=== PATIENT | male | born 1935 | race American Indian/Alaskan Native ===

== ENCOUNTER 2017-03-03 12:41 | Outpatient (CLI) | payer MEDICARE, OTHER ==
[~2017-03-03 12:41] MED LIST: AMLO5TAB4 PO; ASP81TEC PO; AZTH250C PO; CLON0.1T PO; CYAN10007 PO; HYDR-3458 PO; HYDR12.56 PO; HYDR25TA4 PO; LISI20TA PO; LORA-404 PO; MOME13HF2 IH; MONT10TA21 PO; MTP25TSR PO; PHEN-640 PO; PRD20T PO; TADA5TAB2 PO; ZLP10T PO
[2017-03-03] MEDS ORDERED: CETI10TA20 PO (12:58)
[2017-03-03] MEDS ORDERED: LORA1TAB PO (12:58)
[2017-03-03] MEDS ORDERED: AMLO5TAB2 PO (12:58)
[2017-03-03] MEDS ORDERED: DULA0.75 SQ (12:58)
[2017-03-03] MEDS ORDERED: METF500T4 PO (12:58)
[2017-03-03] MEDS ORDERED: RT-ALBUINH IH (12:59)
== END 2017-03-03 14:37 | disposition home or self-care (01) ==
DX: Z01.812 Encounter for preprocedural laboratory examination (principal); Z11.2 Encounter for screening for other bacterial diseases; N40.0 Benign prostatic hyperplasia without lower urinary tract symptoms

== ENCOUNTER 2017-03-08 07:14 | Day surgery (SDC) | payer MEDICARE, OTHER ==
[~2017-03-08] VITALS: Ht 170.2 cm; Wt 78.0 kg
--- NOTE | 2017-03-08 07:07 | Progress Note-Pre Operative ---
Pre-Operative Progress Note H&P Reviewed The H&P was reviewed, patient examined and no changes noted. Date Seen by Provider: Mar 08, 2017 Time Seen by Provider: 07:07 Date H&P Reviewed: Mar 08, 2017 Time H&P Reviewed: 07:07 Pre-Operative Diagnosis: BPH WITH PROSTATISM KRUNAL VENEGAS MD Mar 08, 2017 7:07 am
[2017-03-08 07:13] VITALS: BP 145/73
[~2017-03-08 07:14] MED LIST changes: +AMLO5TAB2 PO; +CETI10TA20 PO; +DULA0.75 SQ; +LORA1TAB PO; +METF500T4 PO; +RT-ALBUINH IH
[2017-03-08] MEDS ORDERED: LEVOFLOXACIN 500 MG/100 ML IV 100 ML ONE (07:26)
[2017-03-08] MEDS ORDERED: LEVOFLOXACIN 500 MG/D5W 100 ML (PRE-MIX) IV ONE (07:45)
[2017-03-08] MEDS: LACTATED RINGERS 1,000 ML IV PRN ×2 (08:01→14:45)
[2017-03-08] MEDS ORDERED: MIDAZOLAM 2 MG/2 ML (VERSED) VIAL ONE (09:11)
[2017-03-08] MEDS ORDERED: proPOfol 200 MG/20 ML (DIPRIVAN) VIAL IV ONE (09:11)
[2017-03-08] MEDS ORDERED: LACTATED RINGERS 1,000 ML IV ONE (09:11)
[2017-03-08] MEDS ORDERED: LIDOCAINE PF 2% 5 ML (XYLOCAINE) VIAL ONE (09:11)
[2017-03-08] MEDS ORDERED: fentaNYL INJECTION 100 MCG/2 ML AMP ONE (09:12)
[2017-03-08] MEDS ORDERED: SEVOFLURANE (ULTANE) 15 ML INHAL SOLN ONE ×4 (09:14→10:07)
[2017-03-08] MEDS ORDERED: ONDANSETRON 4 MG/2 ML (SDV) Z0FRAN IV ONE (09:15)
[2017-03-08] MEDS ORDERED: FAMOTIDINE 20MG/2ML IV (PEPCID) IV ONE (09:15)
--- OUTSIDE RECORDS SUMMARY | 2017-03-08 10:15 | XMS REPORT | Continuity of Care Document ---
Author Author [facility] Organization [facility] Address Unknown Phone Unavailable Care Team Providers Care Surfboard Designer Name Role Phone TiaraMihai gorman PCP [phone] Source Comments Some departments are not documenting in the electronic medical record. If you do not see the information that you expected, contact Release of Information in the Health Information Management department at [phone] for further assistance in locating additional records.[facility] Active Allergies and Adverse Reactions Allergen Noted Date Severity Reactions Comments Soma 12/07/2010 ANXIETY, DIZZINESS Current Medications Prescription Sig. Disp. Refills Start End Date Status Date hydrochlorothiazide Take 12.5 mg by mouth Active (HYDRODIURIL) 25 mg PO daily. tablet cyanocobalamin 1,000 mcg Take 2,000 mcg by mouth Active PO tablet daily. ranitidine(+) (ZANTAC) Take 150 mg by mouth as Active 150 mg PO tablet Needed. aspirin 81 mg PO chew Take 1 Tab by mouth 90 Tab 12/20/19 Active tablet daily. Do not resume 11 until 12/25/2010. oxycodone/acetaminophen Take 1-2 Tabs by mouth 45 Tab 0 12/20/19 Active (PERCOCET) 5/325 mg PO every 4 hours as needed 11 tablet for Pain. lisinopril (PRINIVIL; Take 1 Tab by mouth 90 Tab 12/20/19 Active ZESTRIL) 20 mg PO tablet daily. Follow-up with 11 your PCP prior to resuming your medication. docusate (COLACE) 100 mg Take 1 Cap by mouth twice 180 Cap 0 12/20/19 Active PO capsule daily. 11 Active Problems Not on file Social History Tobacco Use Types Packs/Day Years Used Date Former Smoker Quit: 12/08/1979 Alcohol Use Drinks/Week oz/Week Comments No Last Filed Vital Signs Vital Sign Reading Time Taken Blood Pressure 126/71 12/19/2010 9:26 AM CDT Pulse 76 12/19/2010 9:26 AM CDT Temperature 36.7 C (98 F) 12/19/2010 9:26 AM CDT Respiratory Rate - - Height 1.702 m (5' 7") 12/07/2010 11:11 AM CDT Weight 75 kg (165 lb 5.5 oz) 12/07/2010 11:11 AM CDT Body Mass Index 25.89 12/07/2010 11:11 AM CDT Oxygen Saturation 95% 12/19/2010 9:26 AM CDT Plan of Care Health Maintenance Due Date Last Done Comments Physical (Comprehensive) 1940 Exam Pertussis Vaccine 1944 Tetanus Vaccine 1950 Shingles Vaccine 1993 Prevnar/Pneumovax (#1) 1998 Influenza Vaccine 05/13/2017 Results from Last 3 Months Not on file
--- OUTSIDE RECORDS SUMMARY | 2017-03-08 10:16 | XMS REPORT | Continuity of Care Document ---
Author Author [facility] Organization [facility] Address Unknown Phone Unavailable Allergies Active Description Code Type Severity Reaction Onset Reported/Identified Relationship to Patient Clinical Status Yes carisoprodol [id number] Drug Allergy Unknown N/A 03/03/2017 Medications Problems Date Dx Coded Attending Type Code Diagnosis Diagnosed By 10/01/2010 Ot 305.1 TOBACCO USE DISORDER 10/01/2010 Ot 401.9 HYPERTENSION NOS 10/01/2010 Ot 491.20 OBSTR CHRONIC BRONCHITIS, W/O EXACERBATI 10/01/2010 Ot 593.9 RENAL URETERAL DIS NOS 10/01/2010 Ot V58.69 OTH MED,LT,CURRENT USE 05/20/2011 Ot 272.4 HYPERLIPIDEMIA NEC/NOS 05/20/2011 Ot 285.9 ANEMIA NOS 05/20/2011 Ot 401.9 HYPERTENSION NOS 05/20/2011 Ot 593.9 RENAL URETERAL DIS NOS 05/20/2011 Ot 786.09 RESPIRATORY ABNORM NEC 05/20/2011 Ot 786.59 CHEST PAIN NEC 05/20/2011 Ot V10.52 HX OF KIDNEY MALIGNANCY 05/20/2011 Ot V45.73 ACQRD ABSENCE OF KIDNEY 05/20/2011 Ot V58.66 LONG-TERM (CURRENT) USE OF ASPIRIN 05/20/2011 Ot V58.69 OT MED,LT,CURRENT USE 02/14/2012 Ot 496 CHR AIRWAY OBSTRUCT NEC 10/24/2014 Ot 786.30 10/24/2014 Ot 593.9 10/24/2014 Ot 593.9 10/24/2014 Ot 593.9 10/24/2014 Ot 562.10 10/24/2014 Ot 785.6 10/24/2014 Ot 789.01 10/24/2014 Ot V10.52 10/24/2014 Ot V45.73 10/24/2014 Ot 189.0 10/24/2014 Ot 571.8 10/24/2014 Ot 786.2 10/24/2014 Ot 562.10 10/24/2014 Ot 573.8 10/24/2014 Ot 785.6 10/24/2014 Ot V10.52 10/24/2014 Ot V45.73 10/24/2014 Ot 786.05 10/24/2014 Ot 473.2 10/24/2014 Ot 780.4 10/24/2014 Ot 784.0 10/24/2014 Ot 518.89 10/24/2014 Ot 786.05 10/24/2014 Ot 189.0 10/24/2014 Ot 573.8 10/24/2014 Ot 600.00 10/24/2014 Ot V45.73 10/24/2014 Ot 189.0 10/24/2014 Ot 571.8 10/24/2014 Ot 189.0 10/24/2014 Ot 562.10 10/24/2014 Ot 571.8 10/24/2014 THEO KINNEY, KRUNAL A Ot 189.0 10/24/2014 TANIA KINNEY, MARTIN R Ot 780.60 10/24/2014 TANIA KINNEY, MARTIN R Ot 786.2 10/24/2014 SOHA KINNEY, FERNANDO A Ot 491.9 10/24/2014 SOHA KINNEY, FERNANDO A Ot 786.09 10/24/2014 SOHA KINNEY, FERNANDO A Ot 786.2 10/24/2014 FRED DO, CARLENE M Ot 490 10/24/2014 FRED DO, CARLENE M Ot 786.2 10/24/2014 FRED DO, CARLENE M Ot 793.19 10/24/2014 FRED DO, CARLENE M Ot 189.0 10/24/2014 FRED DO, CARLENE M Ot 491.9 10/24/2014 FRED DO, CARLENE M Ot 786.2 10/24/2014 FRED DO, CARLENE M Ot 786.30 10/24/2014 FRED DO, CARLENE M Ot 490 10/24/2014 FRED DO, CARLENE M Ot 786.2 10/25/2014 TANIA KINNEY, MARTIN R Ot 780.4 10/25/2014 TANIA KINNEY, MARTIN R Ot 784.0 12/10/2014 TANIA KINNEY, MARTIN R Ot 780.4 12/10/2014 TANIA KINNEY, MARTIN R Ot 784.0 03/08/2015 TANIA KINNEY, MARTIN R Ot 780.4 03/08/2015 TANIA KINNEY, MARTIN R Ot 784.0 07/07/2015 TANIA KINNEY, MARTIN R Ot R16.0 07/17/2015 THEO KINNEY, KRUNAL A Ot C64.2 07/29/2015 TANIA KINNEY, MARTIN R Ot R16.0 08/14/2015 THEO KINNEY, KRUNAL A Ot C64.2 08/14/2015 TANIA KINNEY, MARTIN R Ot R16.0 10/24/2015 Ot 786.30 10/24/2015 Ot 593.9 10/24/2015 Ot 593.9 10/24/2015 Ot 593.9 10/24/2015 Ot 562.10 10/24/2015 Ot 785.6 10/24/2015 Ot 789.01 10/24/2015 Ot V10.52 10/24/2015 Ot V45.73 10/24/2015 Ot 189.0 10/24/2015 Ot 571.8 10/24/2015 Ot 786.2 10/24/2015 Ot 562.10 10/24/2015 Ot 573.8 10/24/2015 Ot 785.6 10/24/2015 Ot V10.52 10/24/2015 Ot V45.73 10/24/2015 Ot 786.05 10/24/2015 Ot 473.2 10/24/2015 Ot 780.4 10/24/2015 Ot 784.0 10/24/2015 Ot 518.89 10/24/2015 Ot 786.05 10/24/2015 Ot 189.0 10/24/2015 Ot 573.8 10/24/2015 Ot 600.00 10/24/2015 Ot V45.73 10/24/2015 Ot 189.0 10/24/2015 Ot 571.8 10/24/2015 Ot 189.0 10/24/2015 Ot 562.10 10/24/2015 Ot 571.8 10/24/2015 THEO KINNEY, KRUNAL A Ot 189.0 10/24/2015 TANIA KINNEY, MARTIN R Ot 780.60 10/24/2015 TANIA KINNEY, MARTIN R Ot 786.2 10/24/2015 SOHA KINNEY, FERNANDO A Ot 491.9 10/24/2015 SOHA KINNEY, FERNANDO A Ot 786.09 10/24/2015 SOHA KINNEY, FERNANDO A Ot 786.2 10/24/2015 CARLENE IBARRA DO Ot 490 10/24/2015 CARLENE IBARRA DO Ot 786.2 10/24/2015 CARLENE BIARRA DO Ot 793.19 10/24/2015 FRED SMITH, CARLENE De Leon Ot 189.0 10/24/2015 FRED SMITH, CARLENE [place] Ot 491.9 10/24/2015 FRED SMITH, CARLENE [place] Ot 786.2 10/24/2015 FRED SMITH, CARLENE [place] Ot 786.30 10/24/2015 FRED SMITH, CARLENE [place] Ot 490 10/24/2015 FRED SMITH, CARLENE [place] Ot 786.2 10/24/2015 TANIA KINNEY, MARTIN R Ot 780.4 10/24/2015 TANIA KINNEY, MARTIN R Ot 784.0 10/24/2015 TANIA KINNEY, MARTIN R Ot 780.4 10/24/2015 TANIA KINNEY, MARTIN R Ot 784.0 10/24/2015 TANIA KINNEY, MARTIN R Ot V81.5 10/24/2015 THEO KINNEY, KRUNAL A Ot C64.2 10/24/2015 TANIA KINNEY, MARTIN R Ot R16.0 10/24/2015 JANET KINNEY, ANA Kuo Ot M43.16 SPONDYLOLISTHESIS, LUMBAR REGION 10/24/2015 JANET KINNEY, ANA Kuo Ot M54.16 RADICULOPATHY, LUMBAR REGION 11/03/2015 JENI HAN DO Ot F17.211 NICOTINE DEPENDENCE, CIGARETTES, IN SIL 11/03/2015 JENI HAN DO Ot K57.90 DVRTCLOS OF INTEST, PART UNSP, W/O PERF 11/03/2015 JENI HAN DO, Ot K80.20 CALCULUS OF GALLBLADDER W/O CHOLECYSTITI 11/03/2015 JENI HAN DO, Ot N40.1 ENLARGED PROSTATE WITH LOWER URINARY TRA 11/03/2015 JENI HAN DO, Ot Z90.5 ACQUIRED ABSENCE OF KIDNEY 11/21/2015 TANIA KINNEY, MARTIN R Ot M54.5 12/07/2015 DAVID LEHMAN DISSOLVER OPERATOR Ot K57.32 DVTRCLI OF LG INT W/O PERFORATION OR ABS 12/07/2015 DAVID LEHMAN DISSOLVER OPERATOR Ot K80.20 CALCULUS OF GALLBLADDER W/O CHOLECYSTITI 12/07/2015 DAVID LEHMAN DISSOLVER OPERATOR Ot N40.1 ENLARGED PROSTATE WITH LOWER URINARY TRA 12/07/2015 DAVID LHEMAN DISSOLVER OPERATOR Ot Z98.89 OTHER SPECIFIED POSTPROCEDURAL STATES 12/09/2015 DAVID LEHMAN DISSOLVER OPERATOR Ot K57.32 12/09/2015 DAVID LEHMAN DISSOLVER OPERATOR Ot K80.20 12/09/2015 DAVID LEHMAN DISSOLVER OPERATOR Ot N40.1 12/09/2015 DAVID LEHMAN DISSOLVER OPERATOR Ot Z98.89 12/17/2015 TANIA KINNEY, MARTIN R Ot M54.5 06/10/2016 Ot 593.9 RENAL URETERAL DIS NOS 06/10/2016 Ot 562.10 DIVERTICULOSIS COLON (W/O MENT OF HEMORR 06/10/2016 Ot 785.6 ENLARGEMENT LYMPH NODES 06/10/2016 Ot 789.01 ABDOMINAL PAIN, RIGHT UPPER QUADRANT 06/10/2016 Ot V10.52 HX OF KIDNEY MALIGNANCY 06/10/2016 Ot V45.73 ACQRD ABSENCE OF KIDNEY 06/10/2016 Ot 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 06/10/2016 Ot 571.8 CHRONIC LIVER DIS NEC 06/10/2016 Ot 786.2 COUGH 06/10/2016 Ot 562.10 DIVERTICULOSIS COLON (W/O MENT OF HEMORR 06/10/2016 Ot 573.8 LIVER DISORDERS NEC 06/10/2016 Ot 785.6 ENLARGEMENT LYMPH NODES 06/10/2016 Ot V10.52 HX OF KIDNEY MALIGNANCY 06/10/2016 Ot V45.73 ACQRD ABSENCE OF KIDNEY 06/10/2016 Ot 786.05 SHORTNESS OF BREATH 06/10/2016 Ot 473.2 CHR ETHMOIDAL SINUSITIS 06/10/2016 Ot 780.4 DIZZINESS AND GIDDINESS 06/10/2016 Ot 784.0 HEADACHE 06/10/2016 Ot 518.89 OTHER DISEASES OF LUNG, NEC 06/10/2016 Ot 786.05 SHORTNESS OF BREATH 06/10/2016 Ot 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 06/10/2016 Ot 573.8 LIVER DISORDERS NEC 06/10/2016 Ot 600.00 HYPERTROPHY (BENIGN) OF PROSTATE W/O URI 06/10/2016 Ot V45.73 ACQRD ABSENCE OF KIDNEY 06/10/2016 Ot 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 06/10/2016 Ot 571.8 CHRONIC LIVER DIS NEC 06/10/2016 Ot 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 06/10/2016 Ot 562.10 DIVERTICULOSIS COLON (W/O MENT OF HEMORR 06/10/2016 Ot 571.8 CHRONIC LIVER DIS NEC 06/10/2016 THEO KINNEY, KRUNAL A Ot 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 06/10/2016 TANIA KINNEY, MARTIN R Ot 780.60 FEVER, UNSPECIFIED 06/10/2016 TANIA KINNEY, MARTIN R Ot 786.2 COUGH 06/10/2016 SOHA KINNEY, FERNANDO A Ot 491.9 CHRONIC BRONCHITIS NOS 06/10/2016 SOHA KINNEY, FERNANDO A Ot 786.09 RESPIRATORY ABNORM NEC 06/10/2016 SOHA KINNEY, FERNANDO A Ot 786.2 COUGH 06/10/2016 CARLENE IBARRA DO Ot 490 BRONCHITIS NOS 06/10/2016 CARLNEE IBARRA DO Ot 786.2 COUGH 06/10/2016 CARLENE IBARRA DO Ot 793.19 OTHER NONSPECIFIC ABNORMAL FINDING OF DEANNA 06/10/2016 CARLENE IBARRA DO Ot 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 06/10/2016 CARLENE IBARRA DO Ot 491.9 CHRONIC BRONCHITIS NOS 06/10/2016 CARLENE IBARRA DO Ot 786.2 COUGH 06/10/2016 CARLENE IBARRA DO Ot 786.30 HEMOPTYSIS, UNSPECIFIED 06/10/2016 CARLENE IBARRA DO Ot 490 BRONCHITIS NOS 06/10/2016 CARLENE IBARRA DO Ot 786.2 COUGH 06/10/2016 TANIA KINNEY, MARTIN R Ot 780.4 DIZZINESS AND GIDDINESS 06/10/2016 TANIA KINNEY, MARTIN R Ot 784.0 HEADACHE 06/10/2016 TANIA KINNEY, MARTIN R Ot 780.4 DIZZINESS AND GIDDINESS 06/10/2016 TANIA KINNEY, MARTIN R Ot 784.0 HEADACHE 06/10/2016 TANIA KINNEY, MARTIN R Ot V81.5 SCREEN FOR NEPHROPATHY 06/10/2016 THEO KINNEY, KRUNAL A Ot C64.2 MALIGNANT NEOPLASM OF LEFT KIDNEY, EXCEP 06/10/2016 TANIA KINNEY, MARTIN R Ot R16.0 HEPATOMEGALY, NOT ELSEWHERE CLASSIFIED 06/10/2016 TANIA KINNEY, MARTIN R Ot M54.5 LOW BACK PAIN 08/09/2016 Ot 593.9 RENAL URETERAL DIS NOS 08/09/2016 Ot 562.10 DIVERTICULOSIS COLON (W/O MENT OF HEMORR 08/09/2016 Ot 785.6 ENLARGEMENT LYMPH NODES 08/09/2016 Ot 789.01 ABDOMINAL PAIN, RIGHT UPPER QUADRANT 08/09/2016 Ot V10.52 HX OF KIDNEY MALIGNANCY 08/09/2016 Ot V45.73 ACQRD ABSENCE OF KIDNEY 08/09/2016 Ot 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 08/09/2016 Ot 571.8 CHRONIC LIVER DIS NEC 08/09/2016 Ot 786.2 COUGH 08/09/2016 Ot 562.10 DIVERTICULOSIS COLON (W/O MENT OF HEMORR 08/09/2016 Ot 573.8 LIVER DISORDERS NEC 08/09/2016 Ot 785.6 ENLARGEMENT LYMPH NODES 08/09/2016 Ot V10.52 HX OF KIDNEY MALIGNANCY 08/09/2016 Ot V45.73 ACQRD ABSENCE OF KIDNEY 08/09/2016 Ot 786.05 SHORTNESS OF BREATH 08/09/2016 Ot 473.2 CHR ETHMOIDAL SINUSITIS 08/09/2016 Ot 780.4 DIZZINESS AND GIDDINESS 08/09/2016 Ot 784.0 HEADACHE 08/09/2016 Ot 518.89 OTHER DISEASES OF LUNG, NEC 08/09/2016 Ot 786.05 SHORTNESS OF BREATH 08/09/2016 Ot 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 08/09/2016 Ot 573.8 LIVER DISORDERS NEC 08/09/2016 Ot 600.00 HYPERTROPHY (BENIGN) OF PROSTATE W/O URI 08/09/2016 Ot V45.73 ACQRD ABSENCE OF KIDNEY 08/09/2016 Ot 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 08/09/2016 Ot 571.8 CHRONIC LIVER DIS NEC 08/09/2016 Ot 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 08/09/2016 Ot 562.10 DIVERTICULOSIS COLON (W/O MENT OF HEMORR 08/09/2016 Ot 571.8 CHRONIC LIVER DIS NEC 08/09/2016 KRUNAL VENEGAS MD Ot 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 08/09/2016 TANIA KINNEY, MARTIN R Ot 780.60 FEVER, UNSPECIFIED 08/09/2016 TANIA KINNEY, MARTIN R Ot 786.2 COUGH 08/09/2016 SOHA KINNEY, FERNANDO A Ot 491.9 CHRONIC BRONCHITIS NOS 08/09/2016 SOHA KINNEY, FERNANDO A Ot 786.09 RESPIRATORY ABNORM NEC 08/09/2016 SOHA KINNEY, FERNANDO A Ot 786.2 COUGH 08/09/2016 CARLENE IBARRA DO M Ot 490 BRONCHITIS NOS 08/09/2016 SPENCER IBARRA DOSON M Ot 786.2 COUGH 08/09/2016 SPENCER IBARRA DOSON M Ot 793.19 OTHER NONSPECIFIC ABNORMAL FINDING OF DEANNA 08/09/2016 CARLENE IBARRA DO M Ot 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 08/09/2016 CARLENE IBARRA DO M Ot 491.9 CHRONIC BRONCHITIS NOS 08/09/2016 SPENCER IBARRA DOSON M Ot 786.2 COUGH 08/09/2016 SPENCER IBARRA DOSON M Ot 786.30 HEMOPTYSIS, UNSPECIFIED 08/09/2016 CARLENE IBARRA DO M Ot 490 BRONCHITIS NOS 08/09/2016 SPENCER IBARRA DOSON M Ot 786.2 COUGH 08/09/2016 MARTIN MARIN MD R Ot 780.4 DIZZINESS AND GIDDINESS 08/09/2016 MARTIN MARIN MD R Ot 784.0 HEADACHE 08/09/2016 MARTIN MARIN MD R Ot 780.4 DIZZINESS AND GIDDINESS 08/09/2016 TANIA KINNEY, MARTIN R Ot 784.0 HEADACHE 08/09/2016 MARTIN MARIN MD R Ot V81.5 SCREEN FOR NEPHROPATHY 08/09/2016 KRUNAL VENEGAS MD Ot C64.2 MALIGNANT NEOPLASM OF LEFT KIDNEY, EXCEP 08/09/2016 MARTIN MARIN MD Ot R16.0 HEPATOMEGALY, NOT ELSEWHERE CLASSIFIED 08/09/2016 MARTIN MARIN MD Ot M54.5 LOW BACK PAIN 08/10/2016 KRUNAL VENEGAS MD Ot C64.9 MALIGNANT NEOPLASM OF UNSP KIDNEY, EXCEP 08/10/2016 THEO KINNEY, KRUNAL Harden Ot Z08 ENCNTR FOR FOLLOW-UP EXAM AFTER TRTMT FO 08/10/2016 THEO KINNEY, KRUNAL Harden Ot Z85.528 PERSONAL HISTORY OF OTHER MALIGNANT NEOP 08/31/2016 KRUNAL VENEGAS MD Ot Z08 ENCNTR FOR FOLLOW-UP EXAM AFTER TRTMT FO 08/31/2016 THEO KINNEY, KRUNAL Harden Ot Z85.528 PERSONAL HISTORY OF OTHER MALIGNANT NEOP 09/22/2016 THEO KINNEY, KRUNAL Harden Ot Z08 ENCNTR FOR FOLLOW-UP EXAM AFTER TRTMT FO 09/22/2016 KRUNAL VENEGAS MD Ot Z85.528 PERSONAL HISTORY OF OTHER MALIGNANT NEOP 11/29/2016 Ot 786.2 COUGH 11/29/2016 Ot 562.10 DIVERTICULOSIS COLON (W/O MENT OF HEMORR 11/29/2016 Ot 573.8 LIVER DISORDERS NEC 11/29/2016 Ot 785.6 ENLARGEMENT LYMPH NODES 11/29/2016 Ot V10.52 HX OF KIDNEY MALIGNANCY 11/29/2016 Ot V45.73 ACQRD ABSENCE OF KIDNEY 11/29/2016 Ot 786.05 SHORTNESS OF BREATH 11/29/2016 Ot 473.2 CHR ETHMOIDAL SINUSITIS 11/29/2016 Ot 780.4 DIZZINESS AND GIDDINESS 11/29/2016 Ot 784.0 HEADACHE 11/29/2016 Ot 518.89 OTHER DISEASES OF LUNG, NEC 11/29/2016 Ot 786.05 SHORTNESS OF BREATH 11/29/2016 Ot 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 11/29/2016 Ot 573.8 LIVER DISORDERS NEC 11/29/2016 Ot 600.00 HYPERTROPHY (BENIGN) OF PROSTATE W/O URI 11/29/2016 Ot V45.73 ACQRD ABSENCE OF KIDNEY 11/29/2016 Ot 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 11/29/2016 Ot 571.8 CHRONIC LIVER DIS NEC 11/29/2016 Ot 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 11/29/2016 Ot 562.10 DIVERTICULOSIS COLON (W/O MENT OF HEMORR 11/29/2016 Ot 571.8 CHRONIC LIVER DIS NEC 11/29/2016 KRUNAL VENEGAS MD Ot 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 11/29/2016 TANIA KINNEY, MARTIN R Ot 780.60 FEVER, UNSPECIFIED 11/29/2016 TANIA KINNEY, MARTIN R Ot 786.2 COUGH 11/29/2016 SOHA KINNEY, FERNANDO A Ot 491.9 CHRONIC BRONCHITIS NOS 11/29/2016 SOHA KINNEY, FERNANDO A Ot 786.09 RESPIRATORY ABNORM NEC 11/29/2016 SOHA KINNEY, FERNANDO A Ot 786.2 COUGH 11/29/2016 FRED DO, CARLENE M Ot 490 BRONCHITIS NOS 11/29/2016 FRED DO, CARLENE M Ot 786.2 COUGH 11/29/2016 FRED DO, CARLENE M Ot 793.19 OTHER NONSPECIFIC ABNORMAL FINDING OF DEANNA 11/29/2016 SPENCER IBARRA DOSON M Ot 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 11/29/2016 FRED SMITH CARLENE M Ot 491.9 CHRONIC BRONCHITIS NOS 11/29/2016 FRED SMITH CARLENE M Ot 786.2 COUGH 11/29/2016 FRED SMITH CARLENE M Ot 786.30 HEMOPTYSIS, UNSPECIFIED 11/29/2016 FRED DO, CARLENE M Ot 490 BRONCHITIS NOS 11/29/2016 FRED DO, ACRLENE M Ot 786.2 COUGH 11/29/2016 TANIA KINNEY, MARTIN R Ot 780.4 DIZZINESS AND GIDDINESS 11/29/2016 MARTIN MARIN MD R Ot 784.0 HEADACHE 11/29/2016 MARTIN MARIN MD R Ot 780.4 DIZZINESS AND GIDDINESS 11/29/2016 TANIA KINNEY MARTIN R Ot 784.0 HEADACHE 11/29/2016 TANIA KINNEY, MARTIN R Ot V81.5 SCREEN FOR NEPHROPATHY 11/29/2016 KRUNAL VENEGAS MD Ot C64.2 MALIGNANT NEOPLASM OF LEFT KIDNEY, EXCEP 11/29/2016 MARTIN MARIN MD R Ot R16.0 HEPATOMEGALY, NOT ELSEWHERE CLASSIFIED 11/29/2016 MARTIN MARIN MD R Ot M54.5 LOW BACK PAIN 11/29/2016 KRUNAL VENEGAS MD Ot Z08 ENCNTR FOR FOLLOW-UP EXAM AFTER TRTMT FO 11/29/2016 KRUNAL VENEGAS MD, Ot Z85.528 PERSONAL HISTORY OF OTHER MALIGNANT NEOP Procedures Results Test Result Range Complete blood count (CBC) with automated white blood cell (WBC) differential - 03/03/17 13:10 Blood leukocytes automated count (number/volume) 6.8 10*3/ uL 4.3-11.0 Blood erythrocytes automated count (number/volume) 4.26 10*6 /uL 4.35-5.85 Venous blood hemoglobin measurement (mass/volume) 13.0 g/dL 13.3-17.7 Blood hematocrit (volume fraction) 40 % 40-54 Automated erythrocyte mean corpuscular volume 93 [foz_us] 80-99 Automated erythrocyte mean corpuscular hemoglobin (mass per erythrocyte) 31 pg 25-34 Automated erythrocyte mean corpuscular hemoglobin concentration measurement ( mass/volume) 33 g/dL 32-36 Automated erythrocyte distribution width ratio 12.8 % 10.0-14.5 Automated blood platelet count (count/volume) 168 10*3/uL 130-400 Automated blood platelet mean volume measurement 10.7 [foz_ us] 7.4-10.4 Automated blood neutrophils/100 leukocytes 55 % 42-75 Automated blood lymphocytes/100 leukocytes 27 % 12-44 Blood monocytes/100 leukocytes 8 % 0-12 Automated blood eosinophils/100 leukocytes 10 % 0-10 Automated blood basophils/100 leukocytes 0 % 0-10 Blood neutrophils automated count (number/volume) 3.7 10*3 1.8-7.8 Blood lymphocytes automated count (number/volume) 1.8 10*3 1.0-4.0 Blood monocytes automated count (number/volume) 0.6 10*3 0.0-1.0 Automated eosinophil count 0.7 10*3/uL 0.0-0.3 Automated blood basophil count (count/volume) 0.0 10*3/uL 0.0-0.1 Whole blood basic metabolic panel - 03/03/17 13:10 Serum or plasma sodium measurement (moles/volume) 141 mmol/ L 135-145 Serum or plasma potassium measurement (moles/volume) 3.6 mmol/L 3.6-5.0 Serum or plasma chloride measurement (moles/volume) 105 mmol /L 98-107 Carbon dioxide 28 mmol/L 21-32 Serum or plasma anion gap determination (moles/volume) 8 mmol/L 5-14 Serum or plasma urea nitrogen measurement (mass/volume) 23 mg/dL 7-18 Serum or plasma creatinine measurement (mass/volume) 1.43 mg /dL 0.60-1.30 Serum or plasma urea nitrogen/creatinine mass ratio 16 0-20 Serum or plasma creatinine measurement with calculation of estimated glomerular filtration rate 47 NRG Serum or plasma glucose measurement (mass/volume) 96 mg/dL 70-105 Serum or plasma calcium measurement (mass/volume) 9.2 mg/dL 8.5-10.1 Methicillin resistant Staphylococcus aureus (MRSA) screening culture - 13:10 Methicillin resistant Staphylococcus aureus (MRSA) screening culture NEG NRG Encounters ACCT No. Visit Date/Time Discharge Status Pt. Type Provider Facility Loc./Unit Complaint [id number] 03/03/2017 12:41:00 2016 14:37:00 DIS Outpatient KRUNAL VENEGAS MD [facility] PREOP ENLARGED PROSTATE [id number] 12/07/2015 13:25:00 2015 15:56:00 DIS Emergency DAVID LEHMAN APRN [facility] ER DIFFICULTY URINATING [id number] 11/03/2015 17:54:00 2015 21:15:00 DIS Emergency JENI HAN DO [facility] ER NOT URINATING [id number] 10/24/2015 11:36:00 2015 14:06:00 DIS Emergency ANA GONZALES MD [facility] ER BACK PAIN [id number] 07/03/2015 12:30:00 2014 23:59:59 CLS Outpatient MARTIN MARIN MD [facility] RAD LIVER MASS [id number] 06/27/2015 08:55:00 2014 23:59:59 CLS Outpatient KRUNAL VENEGAS MD [facility] RAD LEFT RENAL CA [id number] 10/24/2014 13:51:00 2014 23:59:59 CLS Outpatient MARTIN MARIN MD [facility] RAD HEADACHE,DIZZINESS,HEAD PRESSURE [id number] 10/24/2014 11:27:00 2014 23:59:59 CLS Outpatient MARTIN MARIN MD [facility] LAB PED PRESSURE, HEADACHE,DIZZINESS [id number] 01/08/2014 11:29:00 2013 23:59:59 CLS Outpatient CARLENE IBARRA DO [facility] RAD BRONCHITIS,COUGH, FOLLOW UP [id number] 12/27/2013 13:46:00 2013 23:59:59 CLS Outpatient CARLENE IBARRA DO [facility] RT BRONCHITIS, COUGH [id number] 11/22/2013 10:49:00 2013 23:59:59 CLS Outpatient CARLENE IBARRA DO [facility] RAD BRONCHITIS, COUGH [id number] 11/15/2013 16:44:00 2013 23:59:59 CLS Outpatient FERNANDO HOYOS MD [facility] LAB COUGH [id number] 11/12/2013 11:47:00 2013 23:59:59 CLS Outpatient MARTIN MARIN MD [facility] RAD COUGH,FEVER [id number] 06/19/2013 10:21:00 2012 23:59:59 CLS Outpatient KRUNAL VENEGAS MD [facility] RAD LEFT RENAL CA [id number] 03/08/2017 08:00:00 PEN Preadmit KRUNAL VENEGAS MD [facility] SDC ENLARGED PROSTATE [id number] 08/09/2016 14:01:00 ACT Outpatient KRUNAL VENEGAS MD [facility] RAD HISTORY OF LT RENAL CELL CARCINOMA [id number] 10/27/2015 12:11:00 ACT Outpatient MARTIN MARIN MD [facility] RAD CHRONIC LUMBAR SPINE PAIN [id number] 12/22/2012 11:50:00 Document Registration [id number] 06/09/2012 10:28:00 Document Registration [id number] 12/14/2011 10:00:00 Document Registration [id number] 12/13/2011 10:00:00 Document Registration [id number] 10/29/2011 09:53:00 Document Registration [id number] 08/12/2011 09:33:00 Document Registration [id number] 07/14/2011 15:49:00 Document Registration [id number] 07/05/2011 08:52:00 Document Registration [id number] 06/29/2011 09:44:00 Document Registration [id number] 06/07/2011 13:41:00 Document Registration [id number] 05/19/2011 14:45:00 Document Registration [id number] 03/12/2011 10:53:00 Document Registration [id number] 03/04/2011 13:52:00 Document Registration [id number] 10/09/2010 10:53:00 Document Registration [id number] 10/08/2010 08:08:00 Document Registration [id number] 09/30/2010 09:30:00 Document Registration [id number] 09/28/2010 11:24:00 Document Registration
--- NOTE | 2017-03-08 10:19 | Progress Note-Post Operative ---
Post-Operative Progess Note Surgeon (s)/Guard Driver (s) Surgeon KRUNAL VENEGAS MD Guard Driver: N/A Pre-Operative Diagnosis BPH WITH PROSTATISM Post-Operative Diagnosis SAME Procedure & Operative Findings Date of Procedure 03/08/17 Procedure Performed/Findings UROLIFT IMPLANT FOR BPH Anesthesia Type GENERAL Estimated Blood Loss Estimated blood loss (mL): N/A Specimens/Packing Specimens Removed N/A KRUNAL VENEGAS MD Mar 08, 2017 10:19 am
[2017-03-08] MEDS ORDERED: ONDANSETRON 4 MG/2 ML (SDV) Z0FRAN IVP PRN (10:30)
[2017-03-08] MEDS: morphine INJ 10 MG/ML 1ML (SYR OR VIAL) IVP PRN ×2 (10:43→10:50)
[2017-03-08 11:20] VITALS: BP 153/77
[2017-03-08] MEDS ORDERED: HYOSCYAMINE 0.375 MG (LEVBID) TAB PO PRN (11:45)
[2017-03-08] MEDS ORDERED: PHENAZOPYRIDINE 100 MG (PYRIDIUM) TABLET PO PRN (11:45)
--- NOTE | 2017-03-08 11:45 | Discharge Inst-Urology ---
Discharge Inst-Urology Discharge Medications New, Converted, or Re-newed RX: RX on Chart Patient Instructions/Follow Up Plan Discharge with meza an leg bag day time and large bag night time with instructions Office tomorrow 9am to DC derrick See me in 2 weeks Increase oral fluids for 48 hours and then as needed. Diet and Activity as tolerated. If questions or concerns contact your physician Or seek help at emergency department. KRUNAL VENEGAS MD Mar 08, 2017 11:45 am
[2017-03-08] MEDS: HYDROcodone/APAP 5 MG/325 MG (LORTAB) TAB PO PRN ×2 (11:57→14:10)
[2017-03-08 12:00] VITALS: BP 169/80
[2017-03-08 12:30] VITALS: BP 169/75
[2017-03-08] MEDS ORDERED: PROMETHAZINE INJ 25 MG/ML (PHENERGAN) AMP IVP ONE (14:30)
[2017-03-08 15:00] VITALS: BP 159/76
[2017-03-08] MEDS ORDERED: PHEN-640 PO (15:27)
[2017-03-08] MEDS ORDERED: HYOS0.3732 PO (15:27)
[2017-03-08] MEDS ORDERED: CIPR-225 PO (15:27)
[2017-03-08] MEDS ORDERED: HYDR-3874 PO (15:27)
[2017-03-08 16:30] VITALS: BP 159/76
--- NOTE | 2017-03-11 14:59 | OPERATIVE REPORT ---
PROCEDURE PHYSICIAN: KRUNAL VENEGAS DATE OF PROCEDURE: 03/08/2017 PREOPERATIVE DIAGNOSIS: BPH with prostatism. POSTOPERATIVE DIAGNOSIS: BPH with prostatism. OPERATION PERFORMED: UroLift implants. SURGEON: Dr. Venegas. ANESTHESIA: General. COMPLICATIONS: None. PROCEDURE: Under satisfactory general anesthesia, the patient in lithotomy position, the genitalia were prepped and draped in the usual sterile fashion. A special UroLift cystoscope was introduced and again, assessment off the prostate revealed enlargement of the lateral lobe meeting in the midline. No median lobe and no intravesical protrusion. I went ahead and inserted 4 UroLift implants, 3 on each side, proximal mid and distal, staying away from the bladder neck and the VERU. There was good opening of the channel. There was some oozing from the prostate which is known to be enlarged and vascular so I elected to leave a catheter. I inserted a 20-Cuban, three-way 30 mL balloon catheter, connected to CBI, the return of which was pretty clear. Estimated blood loss negligible, none of which was replaced. The patient tolerated the procedure and anesthesia well and was sent to recovery room in stable condition. PLAN: We will see how he does in the recovery room to decide upon discharge or admission and catheter fate. Job ID: [id number] Dictated Date: 03/11/2017 11:05:30 Refining Still Operator Date: 03/11/2017 14:54:17 / hany
== END 2017-03-08 16:30 | disposition home or self-care (01) ==
LOC: SDC 07:14
PROVIDERS: ATTEND Urology
DX: N40.0 Benign prostatic hyperplasia without lower urinary tract symptoms (principal); E11.9 Type 2 diabetes mellitus without complications; E78.00 Pure hypercholesterolemia, unspecified; I10 Essential (primary) hypertension; Z79.84 Long term (current) use of oral hypoglycemic drugs; Z79.899 Other long term (current) drug therapy
CPT/HCPCS: 82962

== ENCOUNTER → 2017-06-13 | Outpatient (CLI) | payer MEDICARE, OTHER ==
[~2017-06-13] MED LIST changes: +CIPR-225 PO; +HYDR-3874 PO; +HYOS0.3732 PO
--- NOTE | 2017-06-13 16:58 | Diagnostic Imaging Report ---
Three views of the right knee. INDICATION: Pain and swelling in the right knee. FINDINGS: There is no fracture, dislocation, or radiopaque foreign body. There is spur formation along the upper aspect of the patella at the insertion site of the quadriceps tendon. There are small spurs also seen along the tibial spine and the patella with minimal osteophytes also seen in the medial compartment. No significant joint space narrowing is identified. No suprapatellar effusion of significance seen. IMPRESSION: Mild degenerative changes. Dictated by: Dictated on workstation # [id number]
== END ==
LOC: RAD 14:06
PROVIDERS: ATTEND Family Medicine
DX: R22.41 Localized swelling, mass and lump, right lower limb (principal); M79.604 Pain in right leg
CPT/HCPCS: 73562

== ENCOUNTER 2017-07-09 10:35 | Emergency (ER) | payer MEDICARE, OTHER ==
[~2017-07-09] VITALS: Ht 170.2 cm; Wt 78.0 kg
--- OUTSIDE RECORDS SUMMARY | 2017-07-09 10:40 | XMS REPORT | Clinical Summary ---
Author Author [facility] Organization [facility] Address Unknown Phone Unavailable Care Team Providers Care Fire Behavior Analyst Name Role Phone PCP Unavailable Source Comments Some departments are not documenting in the electronic medical record. If you do not see the information that you expected, contact Release of Information in the Health Information Management department at [phone] for further assistance in locating additional records.[facility] Allergies Active Allergy Reactions Severity Noted Date Comments Carisoprodol ANXIETY, DIZZINESS 12/07/2010 Current Medications Prescription Sig. Disp. Refills Start [...] daily. 11 Active Problems Not on file Family History Medical History Relation Name Comments Arthritis-osteo Brother Diabetes Brother Heart Attack Brother Hypertension Brother Heart Failure Sister High Cholesterol Sister Hypertension Sister Relation Name Status Comments Brother Sister Social History Tobacco Use Types Packs/Day Years Used Date Former Smoker Quit: 12/08/1979 Alcohol Use Drinks/Week oz/Week Comments No Sex Assigned at Date Recorded Not on file Last Filed Vital Signs Vital Sign Reading Time Taken Blood Pressure 126/71 12/19/2010 9:26 AM CDT Pulse 76 12/19/2010 9:26 AM CDT Temperature 36.7 C (98 F) 12/19/2010 9:26 AM CDT Respiratory Rate - - Oxygen Saturation 95% 12/19/2010 9:26 AM CDT Inhaled Oxygen - - Concentration Weight 75 kg (165 lb 5.5 oz) 12/07/2010 11:11 AM CDT Height 170.2 cm (5' 7") 12/07/2010 11:11 AM CDT Body Mass Index 25.9 12/07/2010 11:11 AM CDT Plan of Treatment Health Maintenance Due Date Last Done Comments PHYSICAL (COMPREHENSIVE) 1940 EXAM PERTUSSIS VACCINE 1944 TETANUS VACCINE 1950 SHINGLES VACCINE 1993 PREVNAR/PNEUMOVAX (#1) 1998 INFLUENZA VACCINE 04/12/2017 Results Not on filefrom Last 3 Months
--- NOTE | 2017-07-09 11:07 | ED General ---
General Chief Complaint: Dizziness/Syncope Stated Complaint: DIZZINESS, TROUBLE WALKING Nursing Triage Note: PT REPORTS DIZZINESS AND UNSTEADY GAIT SINCE YESTERDAY. HE DENIES ANY OTHER S/S Nursing Sepsis Screen: No Definite Risk Source of Information: Patient Exam Limitations: No Limitations History of Present Illness Time Seen by Provider: 11:06 Initial Comments To ER coming by his with reports of feeling off balance only when walking that began the morning of 07/11. He denies any dizzy or spinning sensation. He does not feel "off balance" while sitting still, only upon walking. He denies any nausea or vomiting. Denies any recent illness. No recent neck trauma or spinal manipulation. Timing/Duration: 24 Hours Severity: Moderate Associated Systoms: No Headaches, No Loss of Appetite, No Malaise, No Nausea/ Vomiting Allergies and Home Medications Allergies Coded Allergies: carisoprodol (Verified Allergy, Unknown, 03/03/17) Home Medications Albuterol Sulfate 1 Puff Puff, 2 PUFF IH BID, (Reported) 1 PUFF = 90 MCG Amlodipine Besylate 5 Mg Tablet, 5 MG PO DAILY, (Reported) Cetirizine HCl 10 Mg Tablet, 10 MG PO DAILY, (Reported) Ciprofloxacin HCl 500 Mg Tablet, 500 MG PO BID, #14 Prescribed by: KIRK RODRIGUEZ on 03/08/17 152 Clonidine HCl 0.1 Mg Tablet, 0.1 MG PO DAILY, (Reported) Dulaglutide 0.75 Mg/0.5 Ml Pen.injctr, 0.75 MG SQ WEEKLY, (Reported) Hydrochlorothiazide 25 Mg Tablet, 25 MG PO DAILY, (Reported) Hydrocodone/Acetaminophen 1 Each Tablet, 1-2 TAB PO Q4H PRN for PAIN, #30 Prescribed by: KIRK RODRIGUEZ on 03/08/17 1527 Hyoscyamine Sulfate 0.375 Mg Tab.er.12h, 0.375 MG PO Q12H, #20 Prescribed by: KIRK RODRIGUEZ on 03/08/17 1527 Lorazepam 1 Mg Tablet, 1 MG PO TID PRN for TREMORS, (Reported) Metformin HCl 500 Mg Tablet, 500 MG PO BID, (Reported) Mometasone/Formoterol 13 Gm Hfa.aer.ad, 1 PUFF IH DAILY, (Reported) Montelukast Sodium 10 Mg Tablet, 10 MG PO DAILY, (Reported) Phenazopyridine HCl 200 Mg Tablet, 1 TAB PO TID, #20 Prescribed by: KIRK RODRIGUEZ on 03/08/17 1527 Tadalafil 5 Mg Tablet, 5 MG PO DAILY, (Reported) Zolpidem Tartrate 10 Mg Tab, 10 MG PO HS, (Reported) Constitutional: see HPI EENTM: see HPI Respiratory: no symptoms reported Cardiovascular: no symptoms reported Genitourinary: no symptoms reported Musculoskeletal: no symptoms reported Skin: no symptoms reported Psychiatric/Neurological: No Symptoms Reported Hematologic/Lymphatic: No Symptoms Reported Past Fjofajz-Pdklqk-Vmenze Hx Patient Social History Alcohol Use: Denies Use Recreational Drug Use: No Smoking Status: Former Smoker Type Used: Cigarettes Former Smoker, Quit: Mar 03, 1980 2nd Hand Smoke Exposure: No Recent Foreign Travel: No Contact w/Someone Who Travel: No Recent Infectious Disease Expo: No Recent Hopitalizations: No Physical Abuse: No Sexual Abuse: No Immunizations Up To Date Date of Pneumonia Vaccine: Jun 23, 2015 Date of Influenza Vaccine: Jun 21, 2016 Seasonal Allergies Seasonal Allergies: Yes Surgeries History of Surgeries: Yes (LAMINECTOMY) Surgeries: Bladder Surgery, Nephrectomy Respiratory History of Respiratory Disorde: Yes Respiratory Disorders: Chronic Bronchitis Cardiovascular History of Cardiac Disorders: Yes Cardiac Disorders: Hypertension Neurological History of Neurological Disord: Yes (TREMORS) Reproductive System Hx Reproductive Disorders: No Sexually Transmitted Disease: No HIV/AIDS: No Genitourinary Genitourinary Disorders: Prostate Problems Gastrointestinal History of Gastrointestinal Di: Yes Gastrointestinal Disorders: Gastroesophageal Reflux Musculoskeletal History of Musculoskeletal Dis: Yes (LEG/FOOT PAIN) Musculoskeletal Disorders: Arthritis Endocrine History of Endocrine Disorders: Yes HEENT 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 Cancer History of Cancer: Yes Cancer: Kidney Psychosocial History of Psychiatric Problem: No Suicide Risk Score: 0 Integumentary History of Skin or Integumenta: No Blood Transfusions History of Blood Disorders: No Adverse Reaction to a Blood Tr: No (N/A) Family Medical History Significant Family History: No Pertinent Family Hx Physical Exam Vital Signs Vital Sign - Last 12Hours 07/09/17 10:45 Temp 98.2 Pulse 67 Resp 16 B/P (MAP) 131/60 Pulse Ox 99 O2 Delivery Room Air Capillary Refill : Less Than 3 Seconds General Appearance: No Apparent Distress, WD/WN Eyes: Bilateral Eye Normal Inspection, Bilateral Eye PERRL, Bilateral Eye EOMI HEENT: PERRL/EOMI, TMs Normal, Other (very mild nystagmus horizontal with fast phase to the right. 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 Speech is clear and appropriate. ) Skin: Normal Color, Warm/Dry Progress/Results/Core Measures Results/Orders Lab Results Laboratory Tests Test 07/09/17 11:20 07/09/17 11:52 Range/Units White Blood Count 6.7 4.3-11.0 10^3/uL Red Blood Count 4.36 4.35-5.85 10^6/uL Hemoglobin 13.4 13.3-17.7 G/DL Hematocrit 40 40-54 % Mean Corpuscular Volume 92 80-99 FL Mean Corpuscular Hemoglobin 31 25-34 PG Mean Corpuscular Hemoglobin Concent 33 32-36 G/DL Red Cell Distribution Width 13.0 10.0-14.5 % Platelet Count 196 130-400 10^3/uL Mean Platelet Volume 10.6 H 7.4-10.4 FL Neutrophils (%) (Auto) 59 42-75 % Lymphocytes (%) (Auto) 24 12-44 % Monocytes (%) (Auto) 8 0-12 % Eosinophils (%) (Auto) 9 0-10 % Basophils (%) (Auto) 0 0-10 % Neutrophils # (Auto) 4.0 1.8-7.8 X 10^3 Lymphocytes # (Auto) 1.6 1.0-4.0 X 10^3 Monocytes # (Auto) 0.5 0.0-1.0 X 10^3 Eosinophils # (Auto) 0.6 H 0.0-0.3 10^3/uL Basophils # (Auto) 0.0 0.0-0.1 10^3/uL D-Dimer 0.32 0.00-0.49 UG/ML Sodium Level 139 135-145 MMOL/L Potassium Level 3.6 3.6-5.0 MMOL/L Chloride Level 101 98-107 MMOL/L Carbon Dioxide Level 29 21-32 MMOL/L Anion Gap 9 5-14 MMOL/L Blood Urea Nitrogen 24 H 7-18 MG/DL Creatinine 1.29 0.60-1.30 MG/DL Estimat Glomerular Filtration Rate 53 BUN/Creatinine Ratio 19 Glucose Level 102 70-105 MG/DL Calcium Level 9.5 8.5-10.1 MG/DL Total Bilirubin 0.3 0.1-1.0 MG/DL Aspartate Amino Transf (AST/SGOT) 13 5-34 U/L Alanine Aminotransferase (ALT/SGPT) 26 0-55 U/L Alkaline Phosphatase 80 40-136 U/L Total Protein 6.8 6.4-8.2 GM/DL Albumin 4.1 3.2-4.5 GM/DL Urine Color YELLOW Urine Clarity CLEAR Urine pH 6 5-9 Urine Specific [place] 1.015 L 1.016-1.022 Urine Protein NEGATIVE NEGATIVE Urine Glucose (UA) NEGATIVE NEGATIVE Urine Ketones NEGATIVE NEGATIVE Urine Nitrite NEGATIVE NEGATIVE Urine Bilirubin NEGATIVE NEGATIVE Urine Urobilinogen NORMAL NORMAL MG/DL Urine Leukocyte Esterase NEGATIVE NEGATIVE Urine RBC (Auto) NEGATIVE NEGATIVE Urine RBC NONE /HPF Urine WBC NONE /HPF Urine Squamous Epithelial Cells NONE /HPF Urine Crystals NONE /LPF Urine Bacteria NEGATIVE /HPF Urine Casts NONE /LPF Urine Mucus NEGATIVE /LPF Urine Culture Indicated NO My Orders Orders - DAVID LEHMAN APRN Cbc With Automated Diff (07/09/17 11:06) Comprehensive Metabolic Panel (07/09/17 11:06) Ekg Tracing (07/09/17 11:06) Fibrin Degradation Products (07/09/17 11:06) Ct Head Wo (07/09/17 11:06) Ua Culture If Indicated (07/09/17 11:09) Saline Lock/Iv-Start (07/09/17 11:26) Meclizine Tablet (Antivert Tablet) (07/09/17 11:45) Mri Brain W/O Contrast (07/09/17 12:23) Medications Given in ED Current Medications Medications Dose Ordered Sig/Bridgette Route Start Time Stop Time Status Last Admin Dose Admin Meclizine HCl 25 mg ONCE ONCE PO 07/09/17 11:45 07/09/17 11:46 DC 07/09/17 11:53 25 MG Vital Signs/I&O Vital Sign - Last 12Hours 07/09/17 10:45 Temp 98.2 Pulse 67 Resp 16 B/P (MAP) 131/60 Pulse Ox 99 O2 Delivery Room Air Blood Pressure Mean: 83 Departure Impression Impression: Primary Impression: Poor balance Disposition: HOME, SELF-CARE Condition: Stable Departure-Patient Inst. Decision time for Depature: 12:46 Referrals: MARTIN MARIN MD (PCP/Family) Primary Care Physician Patient Instructions: Vertigo (a Type of Dizziness) (DC) Add. Discharge Instructions: 1. Return to ER for any concerns or worsening symptoms 2. Walk carefully and try to have something to hold onto while walking to keep from falling 3. See Dr Marin next week for recheck 4. You should start taking a daily baby aspirin. All discharge instructions reviewed with patient and/or family. Voiced understanding. Scripts Meclizine HCl (Meclizine HCl) 25 Mg Tablet 25 MG PO Q8H Y for DIZZINESS, #10 TAB Prov: DAVID LEHMAN APRN 07/09/17 DAVID LEHMAN APRN Jul 09, 2017 11:07
[2017-07-09 11:29] LABS: BASOPHILS % (AUTO) 0 % (0-10); EOSINOPHILS # (AUTO) 0.6 10^3/uL (0.0-0.3); EOSINOPHILS % (AUTO) 9 % (0-10); LYMPHOCYTES # (AUTO) 1.6 X 10^3 (1.0-4.0); LYMPHOCYTES % (AUTO) 24 % (12-44); MEAN CORPUSCULAR HEMOGLOBIN 31 PG (25-34); MEAN CORPUSCULAR HGB CONC 33 G/DL (32-36); MEAN CORPUSCULAR VOLUME 92 FL (80-99); MEAN PLATELET VOLUME 10.6 FL (7.4-10.4); MONOCYTES # (AUTO) 0.5 X 10^3 (0.0-1.0); MONOCYTES % (AUTO) 8 % (0-12); NEUTROPHILS % (AUTO) 59 % (42-75); PLATELET COUNT 196 10^3/uL (130-400); RED BLOOD COUNT 4.36 10^6/uL (4.35-5.85); WHITE BLOOD COUNT 6.7 10^3/uL (4.3-11.0)
[2017-07-09 11:44] LABS: ALBUMIN 4.1 GM/DL (3.2-4.5); BILIRUBIN,TOTAL 0.3 MG/DL (0.1-1.0); CALCIUM 9.5 MG/DL (8.5-10.1); CREATININE SERUM 1.29 MG/DL (0.60-1.30); POTASSIUM 3.6 MMOL/L (3.6-5.0); TOTAL PROTEIN 6.8 GM/DL (6.4-8.2)
[2017-07-09] MEDS ORDERED: MECLIZINE 25 MG (ANTIVERT) TAB PO ONE (11:45)
--- NOTE | 2017-07-09 11:47 | Diagnostic Imaging Report ---
PROCEDURE: CT head without contrast. TECHNIQUE: Multiple contiguous axial images were obtained through the brain without the use of intravenous contrast. INDICATION: Dizziness, unsteadiness. CORRELATION STUDY: 10/24/2014 FINDINGS: Age-related atrophic changes with prominence of the ventricles and sulci. Scattered areas of decreased attenuation while nonspecific favor probable small vessel ischemic disease. Prominent basal ganglia calcification. No abnormal areas of decreased attenuation to suggest edema. No midline shift or mass effect. No intracranial hemorrhage. Posterior fossa appearing unchanged. The visualized paranasal sinuses as well as mastoid air cells relatively unremarkable. IMPRESSION: 1. Overall generally stable CT examination of the head demonstrates no acute intracranial abnormality. Dictated by: Dictated on workstation # [id number]
[2017-07-09 12:06] LABS: BILIRUBIN,URINE NEGATIVE (NEGATIVE); KETONES,URINE NEGATIVE (NEGATIVE); LEUKOCYTE ESTERASE ,URINE NEGATIVE (NEGATIVE); NITRITE,URINE NEGATIVE (NEGATIVE); PH,URINE 6 (5-9); PROTEIN,URINE NEGATIVE (NEGATIVE); UROBILINOGEN,URINE NORMAL (NORMAL)
[2017-07-09] MEDS ORDERED: MECL-106 PO ×2 (12:47→13:04)
--- NOTE | 2017-07-09 12:59 | Diagnostic Imaging Report ---
PROCEDURE: MR imaging of the brain without contrast. INDICATION: Dizziness. TECHNIQUE: Multiplanar, multisequence MR imaging of the brain was performed without contrast. CORRELATION STUDY: CT head 07/09/2017 FINDINGS: There are no areas of restricted diffusion to suggest acute ischemia. Ventricles and sulci age-appropriate. There are a few scattered, nonspecific areas of hyperintense T2 signal change that may favor small vessel ischemic disease. No edema pattern. No midline shift or mass effect. The cervical cranial junction and midline structures including sella appearing unremarkable. Normal expected intracranial flow voids are present. Imaging through the midbrain structures demonstrate no evidence for cerebellopontine angle mass lesion. Visualized seventh and eighth cranial nerves are unremarkable. The visualized inner ear structures have relatively symmetric and unremarkable appearance. Mastoid air cells clear. IMPRESSION: Overall relatively unremarkable noncontrast MRI examination of the brain. Age-related changes are suggested. No evidence to suggest acute infarct. Dictated by: Dictated on workstation # [id number]
[2017-07-09 13:10] VITALS: BP 131/60
== END 2017-07-09 13:10 | disposition home or self-care (01) ==
LOC: EDUNIT# 10:35 → ER 10:36
DX: R26.89 Other abnormalities of gait and mobility (principal); I10 Essential (primary) hypertension; K21.9 Gastro-esophageal reflux disease without esophagitis; Z87.891 Personal history of nicotine dependence; Z97.4 Presence of external hearing-aid; Z90.5 Acquired absence of kidney; Z85.528 Personal history of other malignant neoplasm of kidney; Z79.84 Long term (current) use of oral hypoglycemic drugs
CPT/HCPCS: 36415; 70450; 70551; 80053; 81000; 85025; 85379; 93005

== ENCOUNTER → 2017-07-14 | Outpatient (CLI) | payer MEDICARE, OTHER ==
[~2017-07-14] MED LIST changes: +MECL-106 PO
--- NOTE | 2017-07-14 19:46 | Diagnostic Imaging Report ---
PROCEDURE: US Carotid Duplex Bilateral. TECHNIQUE: Multiple real-time grayscale images were obtained over the carotid arteries in various projections bilaterally. Additional duplex Doppler and color Doppler images were also obtained. INDICATION: Dizziness. FINDINGS: Grayscale images demonstrate [id number]-wi-[id number] atherosclerotic plaque along the proximal right ICA. Mild plaque is seen in the proximal left ICA. Color Doppler demonstrates patency of the common, internal and external carotid arteries bilaterally. There is antegrade flow noted in the vertebral arteries. The peak systolic velocities in the right ICA are 111, 122, and 124 cm/s and on the left are 73, 94, and the 86 cm/s. ICA/CCA ratios are up to 1 on the right and up to 0.9 on the left. IMPRESSION: Atherosclerotic plaque seen more prominent in the right ICA with estimated underlying stenosis to be less than 50% bilaterally. Dictated by: Dictated on workstation # [id number]
== END ==
LOC: RAD 14:34
PROVIDERS: ATTEND Family Medicine
DX: I65.21 Occlusion and stenosis of right carotid artery (principal); Z86.73 Personal history of transient ischemic attack (TIA), and cerebral infarction without residual deficits
CPT/HCPCS: 93880

== ENCOUNTER 2017-08-25 11:24 | Observation (INO) | payer MEDICARE, OTHER ==
[~2017-08-25] VITALS: Ht 170.2 cm; Wt 74.6 kg
[2017-08-25 12:00] VITALS: BP 128/61
[2017-08-25] MEDS ORDERED: RT-ALBUTEROL/IPRATROPIUM 3 ML (DUONEB) VIAL IH PRN (12:45)
[2017-08-25] MEDS ORDERED: CATHETER FLUSH 10 ML SYR IV PRN (12:45)
[2017-08-25] MEDS: NS IV 1000 ML 1,000 ML IV SCH ×3 (13:06→21:05)
[2017-08-25] MEDS: ENOXAPARIN 40 MG/0.4 ML (LOVENOX) SYR SC SCH (13:10)
[2017-08-25] MEDS ORDERED: MOME13HF INH (13:27)
[2017-08-25] MEDS ORDERED: ZOLP10TA5 PO (13:27)
[2017-08-25] MEDS ORDERED: LEVO500T2 PO (13:27)
[2017-08-25 13:41] LABS: MEAN PLATELET VOLUME 11.1 FL (7.4-10.4); RED BLOOD COUNT 3.81 10^6/uL (4.35-5.85); RED CELL DISTRIBUTION WIDTH 13.1 % (10.0-14.5); WHITE BLOOD COUNT 7.9 10^3/uL (4.3-11.0)
[2017-08-25] MEDS: LEVOFLOXACIN 750 MG/D5W 150 ML PRE-MIX IV SCH (13:43)
[2017-08-25] MEDS ORDERED: ASPI-983 PO (13:53)
[2017-08-25 13:54] LABS: BILIRUBIN,URINE NEGATIVE (NEGATIVE); KETONES,URINE NEGATIVE (NEGATIVE); LEUKOCYTE ESTERASE ,URINE 1+ (NEGATIVE); NITRITE,URINE NEGATIVE (NEGATIVE); PH,URINE 6 (5-9); PROTEIN,URINE NEGATIVE (NEGATIVE); UROBILINOGEN,URINE NORMAL (NORMAL)
[2017-08-25 14:00] LABS: ALBUMIN 3.9 GM/DL (3.2-4.5); BILIRUBIN,TOTAL 0.4 MG/DL (0.1-1.0); CALCIUM 8.5 MG/DL (8.5-10.1); CREATININE SERUM 1.17 MG/DL (0.60-1.30); MAGNESIUM 1.7 MG/DL (1.8-2.4); PHOSPHORUS 2.3 MG/DL (2.3-4.7); POTASSIUM 3.3 MMOL/L (3.6-5.0); TOTAL PROTEIN 6.8 GM/DL (6.4-8.2)
[2017-08-25 14:08] LABS: SQUAMOUS EPITHELIAL CELL,UR RARE /HPF; WBC,URINE RARE /HPF
--- NOTE | 2017-08-25 14:32 | Diagnostic Imaging Report ---
INDICATION: Pneumonia. COMPARISON with study of 08/09/2016. FINDINGS: A new opacity in the right upper lobe laterally is developed. Given the history presumptively pneumonia but this requires radiographic followup to confirm its resolution. Heart size is upper limits but stable. No overt vascular congestion. No effusion or pneumothorax. IMPRESSION: Peripheral opacity in the right upper lung laterally probably reflects pneumonia, however radiographic followup to confirm its resolution is indicated. No other significant finding. Dictated by: Dictated on workstation # [id number]
[2017-08-25] MEDS: RT-ALBUTEROL/IPRATROPIUM 3 ML (DUONEB) VIAL IH SCH ×2 (14:51→20:34)
[2017-08-25 16:24] VITALS: BP 139/63
[2017-08-25] MEDS: LORazepam 1 MG (ATIVAN) TAB PO SCH ×2 (17:39→23:30)
[2017-08-25] MEDS: metFORMIN 500 MG (GLUCOPHAGE) TAB PO SCH (17:39)
[2017-08-25] MEDS ORDERED: RT-ALBUTEROL SULF 2.5 MG/3 ML PRE-MIX VIAL INH PRN (17:45)
[2017-08-25 19:53] VITALS: BP 145/64
[2017-08-25] MEDS: MONTELUKAST 10 MG (SINGULAIR) TAB PO SCH (20:10)
[2017-08-25] MEDS: RT-ADVAIR HFA 115/21 MCG PER PUFF IH SCH (20:34)
[2017-08-25] MEDS ORDERED: NON-FORMULARY MEDICATION 1 EA EA (Tadalafil (Cialis) 5 MG) PO SCH (21:00)
[2017-08-25 23:25] VITALS: BP 129/71
[2017-08-25] MEDS: ZOLPIDEM 5 MG (AMBIEN) TAB PO SCH (23:30)
[2017-08-26] MEDS: RT-ALBUTEROL/IPRATROPIUM 3 ML (DUONEB) VIAL IH SCH (02:53)
[2017-08-26] MEDS: NS IV 1000 ML 1,000 ML IV SCH (04:02)
[2017-08-26 04:03] VITALS: BP 134/71
[2017-08-26] MEDS: metFORMIN 500 MG (GLUCOPHAGE) TAB PO SCH ×2 (06:39→17:22)
--- NOTE | 2017-08-26 06:59 | Pulmonary Consultation ---
History of Present Illness History of Present Illness Date of Consultation 08/26/17 06:54 Time Seen by Provider: 06:54 Date of Admission History of Present Illness 82yo patient with hx of asthma directly admitted from my office secondary to worsening SOB, dehydration, fevers, NS. He was seen at [facility] [place] on [place] secondary to symptoms was dx with pneumonia and sent home with Julio. His who is a retired RN made him an appt with me secondary to concerns of sepsis and worsening dehydration. Pt admits to worsening SOB, fever 103 at home , and feeling dehydrated. pt states he feels worse today c/w yesterday. Allergies and Home Medications Allergies Coded Allergies: carisoprodol (Verified Allergy, Intermediate, SHAKING, AGITATION, 08/25/17 ) Home Medications Albuterol Sulfate 1 Puff Puff, 2 PUFF IH Q6H PRN for SHORTNESS OF BREATH, ( Reported) Amlodipine Besylate 5 Mg Tablet, 5 MG PO DAILY, (Reported) Aspirin 81 Mg Tablet.dr, 81 MG PO DAILY, (Reported) Cetirizine HCl 10 Mg Tablet, 10 MG PO DAILY, (Reported) Clonidine HCl 0.1 Mg Tablet, 0.1 MG PO DAILY, (Reported) Dulaglutide 0.75 Mg/0.5 Ml Pen.injctr, 0.75 MG SQ Sa, (Reported) Hydrochlorothiazide 25 Mg Tablet, 25 MG PO DAILY, (Reported) Levofloxacin 500 Mg Tablet, 500 MG PO DAILY for 5 Days, (Reported) 5 DAY SUPPLY FILLED 08-24-17 Lorazepam 1 Mg Tablet, 1 MG PO QID, (Reported) Metformin HCl 500 Mg Tablet, 500 MG PO BID, (Reported) Mometasone/Formoterol 13 Gm Hfa.aer.ad, 1 PUFF INH BID, (Reported) Montelukast Sodium 10 Mg Tablet, 10 MG PO HS, (Reported) Tadalafil 5 Mg Tablet, 5 MG PO HS, (Reported) Zolpidem Tartrate 10 Mg Tablet, 10 MG PO HS, (Reported) Past Akqjsei-Yeqflt-Rlkdzp Hx Patient Social History Alcohol Use: Denies Use Recreational Drug Use: No Smoking Status: Former Smoker Type Used: Cigarettes Former Smoker, Quit: Aug 25, 1981 2nd Hand Smoke Exposure: No Recent Foreign Travel: No Recent Infectious Disease Expo: No Recent Hopitalizations: No Immunizations Up To Date PED Vaccines UTD: No Date of Pneumonia Vaccine: Jun 23, 2015 Date of Influenza Vaccine: Jul 20, 2017 Seasonal Allergies Seasonal Allergies: Yes Surgeries History of Surgeries: Yes (LAMINECTOMY, KIDNEY LEFT REMOVAL, UROFIFT) Surgeries: Bladder Surgery, Nephrectomy Respiratory History of Respiratory Disorde: Yes Respiratory Disorders: Chronic Bronchitis Currently Using CPAP: No Currently Using BIPAP: No Cardiovascular History of Cardiac Disorders: Yes Cardiac Disorders: Hypertension Neurological History of Neurological Disord: Yes (TREMORS) Reproductive System Hx Reproductive Disorders: No Sexually Transmitted Disease: No HIV/AIDS: No Genitourinary Genitourinary Disorders: Prostate Problems Gastrointestinal History of Gastrointestinal Di: No (INDIGESTION) Gastrointestinal Disorders: Gastroesophageal Reflux Musculoskeletal History of Musculoskeletal Dis: Yes (LEG/FOOT PAIN) Musculoskeletal Disorders: Arthritis Endocrine History of Endocrine Disorders: Yes Are Your Blood Sugars Over 250: No HEENT History of HEENT Disorders: Yes Loss of Vision: Denies Hearing Impairment: Bilateral Hearing Aide Cancer History of Cancer: Yes (LEFT KIDNEY REMOVED 2010) Cancer: Kidney Type of Tx Receive: Surgical Intervention Psychosocial History of Psychiatric Problem: No Integumentary History of Skin or Integumenta: No Blood Transfusions History of Blood Disorders: No Adverse Reaction to a Blood Tr: No (N/A) Family Medical History Significant Family History: No Pertinent Family Hx Family Medial History: Cardiovascular disease 19 MOTHER G8 BROTHER G8 BROTHER Coronary thrombosis 19 MOTHER G8 SISTER G8 SISTER Hypertension 19 MOTHER Review of Systems Time Seen by Provider: 06:58 Constitutional: Fever, Chills, Sweats, Weakness, Malaise Eyes: No: Pain, Vision change, Conjunctivae inflammation, Eyelid inflammation, Other, Redness ENT: Nose congestion, No: Ear pain, Ear discharge, Nose pain, Nose discharge, Mouth pain, Mouth swelling, Throat pain, Throat swelling, Other Respiratory: Cough, Shortness of breath, SOB with excertion, Wheezing, Sputum Cardiovascular: Paroxysmal Noc. Dyspnea, Lt Headedness Gastrointestinal: No: Nausea, Vomiting, Abdominal Pain, Diarrhea, Constipation , Melena, Hematochezia, Other Neurological: Weakness, No: Change in speech, Confusion Exam Exam Vital Signs Date Time Temp Pulse Resp B/P (MAP) Pulse Ox O2 Delivery O2 Flow Rate FiO2 08/26/17 04:03 99.8 84 18 134/71 (92) 94 Room Air 08/26/17 01:00 82 08/25/17 23:25 99.8 70 20 129/71 (90) 95 Room Air 08/25/17 21:00 Room Air 08/25/17 20:36 96 Room Air 08/25/17 19:53 98.7 85 20 145/64 (91) 97 Room Air 08/25/17 19:00 93 08/25/17 16:24 98.9 90 22 139/63 (88) 97 Room Air 08/25/17 14:52 97 Room Air 08/25/17 14:35 80 08/25/17 12:00 97.6 79 20 128/61 (83) 97 Room Air 08/25/17 12:00 97 Room Air I & O 08/26/17 07:00 Intake Total 2870 ml Output Total 1300 ml Balance 1570 ml General Appearance: No Apparent Distress, WD/WN HEENT: PERRL/EOMI, Pharynx Normal Neck: Full Range of Motion, Non Tender, Supple Respiratory: No Accessory Muscle Use, No Respiratory Distress, Decreased Breath Sounds Cardiovascular: Regular Rate, Rhythm Gastrointestinal: normal bowel sounds, non tender, soft Neurologic/Psychiatric: Alert, Oriented x3 Skin: Normal Color, Warm/Dry Lymphatic: No Adenopathy Results Lab Laboratory Tests 08/25/17 13:15 Assessment/Plan Assessment/Plan Pneumonia -Continue Levaquin Dehydration -IVF Hx of asthma -stable -SVNS -singulair 254 Clinical Quality Measures DVT/VTE Risk/Contraindication: Risk Factor Score Per Nursin RFS Level Per Nursing on Admit: 2=Moderate CARLENE IBARRA DO Aug 26, 2017 06:59
[2017-08-26] MEDS ORDERED: RT-ALBUTEROL/IPRATROPIUM 3 ML (DUONEB) VIAL IH PRN (07:30)
[2017-08-26 08:00] VITALS: BP 160/72
[2017-08-26] MEDS ORDERED: guaiFENesin/CODEINE (ROBITUSSIN AC) 10ML UDC PO PRN (09:45)
[2017-08-26 10:12] LABS: BASOPHILS % (AUTO) 0 % (0-10); EOSINOPHILS # (AUTO) 0.4 10^3/uL (0.0-0.3); EOSINOPHILS % (AUTO) 6 % (0-10); LYMPHOCYTES # (AUTO) 1.2 X 10^3 (1.0-4.0); LYMPHOCYTES % (AUTO) 19 % (12-44); MEAN CORPUSCULAR HEMOGLOBIN 32 PG (25-34); MEAN CORPUSCULAR HGB CONC 34 G/DL (32-36); MEAN CORPUSCULAR VOLUME 94 FL (80-99); MEAN PLATELET VOLUME 10.9 FL (7.4-10.4); MONOCYTES # (AUTO) 0.5 X 10^3 (0.0-1.0); MONOCYTES % (AUTO) 8 % (0-12); NEUTROPHILS # (AUTO) 4.3 X 10^3 (1.8-7.8); NEUTROPHILS % (AUTO) 66 % (42-75); PLATELET COUNT 163 10^3/uL (130-400); RED BLOOD COUNT 3.72 10^6/uL (4.35-5.85); WHITE BLOOD COUNT 6.4 10^3/uL (4.3-11.0)
[2017-08-26] MEDS: ASPIRIN E.C. 81 MG (ECOTRIN) TAB PO SCH (10:13)
[2017-08-26] MEDS: LORATADINE (CLARITIN) 10 MG TAB PO SCH (10:13)
[2017-08-26] MEDS: cloNIDine 0.1 MG (CATAPRES) TAB PO SCH (10:13)
[2017-08-26] MEDS: amLODIPine 5 MG (NORVASC) TAB PO SCH (10:13)
[2017-08-26] MEDS: LORazepam 1 MG (ATIVAN) TAB PO SCH ×4 (10:13→22:32)
[2017-08-26] MEDS: HYDROCHLOROTHIAZIDE 25 MG (HCTZ) TAB PO SCH (10:13)
[2017-08-26] MEDS: RT-ADVAIR HFA 115/21 MCG PER PUFF IH SCH ×2 (10:23→20:28)
[2017-08-26 10:30] LABS: ALBUMIN 3.7 GM/DL (3.2-4.5); BILIRUBIN,TOTAL 0.2 MG/DL (0.1-1.0); CALCIUM 8.5 MG/DL (8.5-10.1); CREATININE SERUM 1.18 MG/DL (0.60-1.30); POTASSIUM 3.7 MMOL/L (3.6-5.0); TOTAL PROTEIN 6.4 GM/DL (6.4-8.2)
--- NOTE | 2017-08-26 11:03 | History & Physical-Hospitalist ---
HPI History of Present Illness: HPI/Chief Complaint CC: Pneumonia HPI: This is a [address] Wade with hx of COPD that presented to [facility] direct admission from Dr. Wade's office for fever and SOB. He was admitted for exacerbation of COPD and pneumonia and CXR confirmed infiltrate in right upper lobe. Currently on Levaquin and labs are pending at time of this note. Patient Interview: Pt confirms Dr. Howard as PCP. Pt was informed that I will have my note sent to him Pt confirms Dr. Wade wants another day before DC to be sure pneumonia is being treated Pt denies O2 use at home Pt confirms [facility] gave him abx, but the pt states his family then felt he wasn' t on the right treatment. Pt states he got an appointment with Dr. Wade after this Physical exam stable. Pt denies wearing a breathing machine at night or breathing treatments. 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 states they were just clear water Home O2 eval discussed Pt confirms pharmacy as [facility] in [place] and would like the meds before noon tomorrow. I assured her that I will have the prescriptions in to leaf size picker today. Pt was encouraged to ambulate and informed that I will DC fluids Scribed by Piper Fontenot under direct supervision of Dr. Veena Vela. 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) Alcohol Use: Denies Use Recreational Drug Use: No Smoking Status: Former Smoker Former Smoker, Quit: Aug 25, 1981 Type Used: Cigarettes 2nd Hand Smoke Exposure: No Physical Abuse Screen: No Sexual Abuse: No Recent Foreign Travel: No Recent Hopitalizations: No Recent Infectious Disease Expo: No Immunizations Up To Date Pediatric: No Date of Pneumonia Vaccine: Jun 23, 2015 Date of Influenza Vaccine: Jul 20, 2017 Seasonal Allergies Seasonal Allergies: Yes Surgeries Yes (LAMINECTOMY, KIDNEY LEFT REMOVAL, UROFIFT) Bladder Surgery, Nephrectomy Respiratory Yes COPD, Pneumonia Currently Using CPAP: No Currently Using BIPAP: No Cardiovascular Yes High Cholesterol, Hypertension Neurological Yes (TREMORS) Reproductive System Hx Reproductive Disorders: No Sexually Transmitted Disease: No HIV/AIDS: No Genitourinary Yes Prostate Problems Gastrointestinal Yes Gastroesophageal Reflux Musculoskeletal Yes (LEG/FOOT PAIN) Arthritis Endocrine History of Endocrine Disorders: Yes Endocrine Disorders: Diabetes, Non-Insulin dep Are Your Blood Sugars Over 250: No HEENT History of HEENT Disorders: Yes Loss of Vision: Denies 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) Kidney Type of Treatment: Surgical Intervention Psychosocial History of Psychiatric Problem: No Integumentary History of Skin or Integumenta: No Blood Transfusions History of Blood Disorders: No Adverse Reaction to a Blood Tr: No (N/A) Family Medical History Significant Family History: No Pertinent Family Hx Family Hx: Cardiovascular disease 19 MOTHER G8 BROTHER G8 BROTHER Coronary thrombosis 19 MOTHER G8 SISTER G8 SISTER Hypertension 19 MOTHER Review of Systems Constitutional: see HPI, chills, dizziness, fever, malaise, weakness EENTM: no symptoms reported Respiratory: cough, short of breath, wheezing Cardiovascular: no symptoms reported Gastrointestinal: loss of appetite, nausea Genitourinary: decreased output Musculoskeletal: no symptoms reported Skin: no symptoms reported Psychiatric/Neurological: No Symptoms Reported All Other Systems Reviewed Negative Unless Noted: Yes Physical Exam Physical Exam Vital Signs Vital Sign - Last 12Hours 08/25/17 08/26/17 12:00 11:16 Temp 97.6 Pulse 79 Resp 20 B/P (MAP) 128/61 (83) Pulse Ox 97 O2 Delivery Room Air O2 Flow Rate 0.00 Capillary Refill : General Appearance: No Apparent Distress, WD/WN, Chronically ill, Other (mouth tremor noted) Eyes: Bilateral Eye Normal Inspection, Bilateral Eye PERRL HEENT: PERRL/EOMI, Normal ENT Inspection, Pharynx Normal Neck: Full Range of Motion, Normal Inspection, Non Tender, Supple, Carotid Bruit Respiratory: Chest Non Tender, Normal Breath Sounds, No Accessory Muscle Use, No Respiratory Distress, Crackles (RML) Cardiovascular: Regular Rate, Rhythm, No Edema, No Gallop, No JVD, No Murmur, Normal Peripheral Pulses Gastrointestinal: Normal Bowel Sounds, No Organomegaly, No Pulsatile Mass, Non Tender, Soft Back: Normal Inspection, No CVA Tenderness, No Vertebral Tenderness Extremity: Normal Capillary Refill, Normal Inspection, Normal Range of Motion, Non Tender, No Calf Tenderness, No Pedal Edema Neurologic/Psychiatric: Alert, Oriented x3, No Motor/Sensory Deficits, Normal Mood/Affect Skin: Normal Color, Warm/Dry Lymphatic: No Adenopathy Results Results/Procedures Lab Laboratory Tests 08/25/17 13:15 08/26/17 09:45 Assessment/Plan Admission Diagnosis Assessment: RUL pneumonia COPD HTN DM Assessment and Plan Plan: Home O2 eval DC fluids DC telemetry Ambulate Nery CIFUENTES Clinical Quality Measures DVT/VTE Risk/Contraindication: Risk Factor Score Per Nursin RFS Level Per Nursing on Admit: 2=Moderate VEENA VELA DO Aug 26, 2017 11:02
[2017-08-26] MEDS ORDERED: GFCD10B PO (11:10)
[2017-08-26 12:00] VITALS: BP 132/62
[2017-08-26] MEDS: ENOXAPARIN 40 MG/0.4 ML (LOVENOX) SYR SC SCH (13:37)
[2017-08-26] MEDS: BENZONATATE 100 MG (TESSALON) CAPSULE PO SCH ×2 (13:37→20:05)
[2017-08-26] MEDS: LEVOFLOXACIN 750 MG/D5W 150 ML PRE-MIX IV SCH (13:38)
[2017-08-26 15:35] VITALS: BP 145/65
[2017-08-26] MEDS: MONTELUKAST 10 MG (SINGULAIR) TAB PO SCH (20:05)
[2017-08-26 20:11] VITALS: BP 154/69
[2017-08-26] MEDS: ZOLPIDEM 5 MG (AMBIEN) TAB PO SCH (22:32)
[2017-08-27] VITALS: BP 136/65
[2017-08-27 04:00] VITALS: BP 139/65
[2017-08-27] MEDS: metFORMIN 500 MG (GLUCOPHAGE) TAB PO SCH (06:27)
[2017-08-27 07:30] VITALS: BP 167/76
[2017-08-27] MEDS: RT-ADVAIR HFA 115/21 MCG PER PUFF IH SCH (07:54)
[2017-08-27] MEDS: HYDROCHLOROTHIAZIDE 25 MG (HCTZ) TAB PO SCH (08:08)
[2017-08-27] MEDS: LORazepam 1 MG (ATIVAN) TAB PO SCH (08:08)
[2017-08-27] MEDS: cloNIDine 0.1 MG (CATAPRES) TAB PO SCH (08:08)
[2017-08-27] MEDS: ASPIRIN E.C. 81 MG (ECOTRIN) TAB PO SCH (08:08)
[2017-08-27] MEDS: BENZONATATE 100 MG (TESSALON) CAPSULE PO SCH (08:08)
[2017-08-27] MEDS: LORATADINE (CLARITIN) 10 MG TAB PO SCH (08:08)
[2017-08-27] MEDS: amLODIPine 5 MG (NORVASC) TAB PO SCH (08:08)
--- NOTE | 2017-08-27 10:27 | Discharge Summary-Hospitalist ---
Diagnosis/Chief Complaint Date of Admission Aug 25, 2017 at 11:50 am Date of Discharge August 27, 2017 Discharge Date: Aug 27, 2017 Discharge Time: 10:30 Admission Diagnosis Assessment: RUL pneumonia COPD HTN DM Discharge Diagnosis right upper lobe pneumonia unknown etiology COPD Hypertension Type II diabetes Discharge Summary Procedures None Consultations Dr. Wade Discharge Physical Examination Allergies: Coded Allergies: carisoprodol (Verified Allergy, Intermediate, SHAKING, AGITATION, 08/25/17 ) Vitals & I&Os Vital Signs Date Time Temp Pulse Resp B/P (MAP) Pulse Ox O2 Delivery O2 Flow Rate FiO2 08/27/17 11:00 88 20 158/88 94 Room Air 08/27/17 07:30 98.3 08/26/17 11:16 0.00 General Appearance: Alert, Oriented X3 HEENT: Atraumatic Cardiovascular: Regular Rate, No Murmurs Abdominal: Soft Extremities: No Edema Neuro: Normal Speech Psych/Mental Status: Mental Status NL Hospital Course patient was admitted for further evaluation. Chest x-ray showed a right upper lobe pneumonia. White count was normal. Sputum culture showed normal marge. Legionella and strep tests are pending.the patient has remained with oxygen saturations above 91 percent. He has been afebrile. He was placed on Levaquin 750 mg IV every 24 hours without complication. At the time of discharge he complains of feeling weak but improved and will have follow-up with Dr. Wade and Dr. Howard. He and his were advised of the need for close follow up for an atypical upper lobe pneumonia to ensure clearing. A xray in 2 -3 weeks was advised, they both acknowledged and understood. Labs (last 24 hrs) Microbiology 08/25/17 Gram Stain - Final, Resulted 08/25/17 Sputum Culture - Preliminary, Resulted Usual/normal marge isolated. Discussion & Recommendations it is recommended that the patient have a follow-up chest x-ray to ensure clearing of the right upper lobe pneumonia. Discharge Home Medications: Active Scripts Active Guaifenesin-Codeine Syrup (Guaifenesin/Codeine) 10 Ml Syrp 10 Ml PO Q4H PRN Reported Aspirin EC (Aspirin) 81 Mg Tablet. 81 Mg PO DAILY Dulera 200 Mcg/5 Mcg Inhaler (Mometasone/Formoterol) 13 Gm Hfa.aer.ad 1 Puff INH BID Zolpidem Tartrate 10 Mg Tablet 10 Mg PO HS Levaquin (Levofloxacin) 500 Mg Tablet 500 Mg PO DAILY 5 Days 5 DAY SUPPLY FILLED 08-24-17 Proair Hfa (Albuterol Sulfate) 1 Puff Puff 2 Puff IH Q6H PRN Trulicity (Dulaglutide) 0.75 Mg/0.5 Ml Pen.injctr 0.75 Mg SQ SA Zyrtec (Cetirizine HCl) 10 Mg Tablet 10 Mg PO DAILY Lorazepam 1 Mg Tablet 1 Mg PO QID Amlodipine Besylate 5 Mg Tablet 5 Mg PO DAILY Metformin HCl 500 Mg Tablet 500 Mg PO BID Cialis (Tadalafil) 5 Mg Tablet 5 Mg PO HS Singulair (Montelukast Sodium) 10 Mg Tablet 10 Mg PO HS Clonidine HCl 0.1 Mg Tablet 0.1 Mg PO DAILY Hydrochlorothiazide 25 Mg Tablet 25 Mg PO DAILY Condition at discharge stable Instructions to patient/family Please see electronic discharge instructions given to patient. Clinical Quality Measures DVT/VTE Risk/Contraindication: Risk Factor Score Per Nursin RFS Level Per Nursing on Admit: 2=Moderate Copy Copies To 1: MARTIN HOWARD MD, KATHLEEN M MD Aug 27, 2017 10:27
[2017-08-27 11:00] VITALS: BP 158/88
[2017-08-27] MEDS ORDERED: NON-FORMULARY MEDICATION 1 EA EA (Dulaglutide (Trulicity) 0.75 MG) SQ SCH (17:00)
[2017-08-29 09:27] LABS: LEGIONELLA PNEU ANTIGEN URINE Negative; STREP PNEUMOCOCCUS ANTIG Negative
== END 2017-08-27 08:00 | disposition home or self-care (01) ==
LOC: 4TH 11:50 → UNDOADMOB 11:52 → 4TH 11:52
PROVIDERS: ADMIT Internal Medicine; ATTEND Internal Medicine
DX: J18.9 Pneumonia, unspecified organism (principal); J44.0 Chronic obstructive pulmonary disease with (acute) lower respiratory infection; I10 Essential (primary) hypertension; E11.9 Type 2 diabetes mellitus without complications; Z88.8 Allergy status to other drugs, medicaments and biological substances; Z79.82 Long term (current) use of aspirin; Z79.84 Long term (current) use of oral hypoglycemic drugs; Z79.899 Other long term (current) drug therapy; Z87.891 Personal history of nicotine dependence; E86.0 Dehydration; J45.909 Unspecified asthma, uncomplicated
CPT/HCPCS: 36415; 71010; 80053; 81000; 83605; 83735; 84100; 85025; 85027; 87040; 87070; 87205; 87449; 87899; 94640; 94760; 94761; 99211; G0378

== ENCOUNTER → 2017-10-05 | Outpatient (CLI) | payer MEDICARE, OTHER ==
[~2017-10-05] MED LIST changes: +ASPI-983 PO; +GFCD10B PO; +LEVO500T2 PO; +MOME13HF INH; +ZOLP10TA5 PO
--- NOTE | 2017-10-05 14:44 | Diagnostic Imaging Report ---
INDICATION: Pneumonia, followup. TIME OF EXAM: 1:33 PM. COMPARISON: 08/25/2017. FINDINGS: The heart size is normal. The infiltrate in the right upper lobe has cleared. No new infiltrate is seen. There is a calcified granuloma in the left upper lobe. No effusion is seen. IMPRESSION: There has been clearing of the right upper lobe pneumonia when compared with the examination from 08/25/2017. Dictated by: Dictated on workstation # [id number]
== END ==
LOC: RAD 13:02
PROVIDERS: ATTEND Nurse Practitioner Family
DX: J44.9 Chronic obstructive pulmonary disease, unspecified (principal); J18.9 Pneumonia, unspecified organism
CPT/HCPCS: 71046

== ENCOUNTER → 2018-09-22 | Outpatient (CLI) | payer MEDICARE, OTHER ==
[~2018-09-22] MED LIST changes: -AMLO5TAB2 PO; +AMLO5TAB7 PO; +HYDR-3870 PO; -HYDR-3874 PO; +METF-397 PO; -METF500T4 PO
--- NOTE | 2018-09-22 16:48 | Diagnostic Imaging Report ---
INDICATION: Acute onset right-sided low back pain. TECHNIQUE: AP, Lateral and Spot imaging of the lumbar spine CORRELATION STUDY: None FINDINGS: Straightening of the normal lumbar lordotic curvature. There is slight loss of height and anterior wedging at L1 level. Remaining lumbar vertebral body heights are relatively stable. Mild diffuse disc space narrowing is noted at the L5-S1 level. Prominent hypertrophic facet arthropathy at L5-S1, L4-5 and, to a lesser degree, the L3-L4 level. SI joints are relatively unremarkable. A few air-fluid levels are present. Scattered surgical clips are present within the abdomen and pelvis. IMPRESSION: Slight anterior wedging loss of height at L1 level, likely nonacute. Diffuse hypertrophic facet arthropathy, particularly at the lower lumbar spine levels. Dictated by: Dictated on workstation # [id number]
== END ==
LOC: RAD 14:39
PROVIDERS: ATTEND Nurse Practitioner Family
DX: M46.86 Other specified inflammatory spondylopathies, lumbar region (principal); M51.36 Other intervertebral disc degeneration, lumbar region
CPT/HCPCS: 72100

== ENCOUNTER → 2018-10-17 | Outpatient (CLI) | payer MEDICARE, OTHER ==
[~2018-10-17] MED LIST changes: -AMLO5TAB7 PO; +AMLO5TAB9 PO
--- NOTE | 2018-10-17 14:49 | Diagnostic Imaging Report ---
PROCEDURE: CT chest, abdomen, and pelvis without contrast. TECHNIQUE: Multiple contiguous axial images were obtained through the chest, abdomen, and pelvis without the use of intravenous contrast. INDICATION: Allergic rhinitis and right hip pain. Correlation is made with prior CT abdomen and pelvis from 12/07/[address] chest from 01/08/2014. CT CHEST: No axillary lymphadenopathy is seen. The mediastinum and rodney is limited in evaluation due to absence of intravenous contrast. There are coronary arterial calcifications present. No pericardial or pleural fluid is identified. Tiny apical densities on the right appear stable to CT study dating back to June 2013. No other parenchymal nodules or masses are seen apart from a calcified nodule in the posterior left upper lobe. No infiltrates are seen. The central airways are patent. There has been development of multiple lucencies throughout the vertebrae of the thoracic spine, concerning for metastatic disease or myeloma. This was not present on prior study from 2012 or 2013. IMPRESSION: 1. No evidence of thoracic lymphadenopathy or pulmonary metastatic disease. Patient has developed multiple small lucencies involving numerous thoracic vertebral bodies, concerning for metastatic disease or myeloma. CT ABDOMEN AND PELVIS: Low density mass right lobe of liver is noted measuring 4.4 cm. This is similar to prior CT from 2015 may represent a hemangioma. There are small stones in the gallbladder. No biliary duct dilatation is seen. The pancreas and spleen are unremarkable. No adrenal mass is detected. The right kidney is unremarkable. Left kidney appears to be absent. Bowel loops are normal caliber. There is diverticulosis of the sigmoid but no evidence of acute diverticulitis. There is no ascites. Prostate is moderately enlarged. The bladder is unremarkable. Evaluation of the bony structures does demonstrate numerous lucencies throughout the lumbar spine and pelvis. There appears to be a lytic destructive lesion involving approximately S1 vertebral body, 3.0 x 3.6 cm. IMPRESSION: 1. Development of numerous lytic lesions in the lumbar spine and pelvis, largest at approximately S1, concerning for metastatic disease or myeloma. 2. Right lobe liver mass, very similar to study dating back 2015 may represent a hemangioma. 3. No definite evidence of abdominal or pelvic lymphadenopathy. Dictated by: Dictated on workstation # [id number]
== END ==
LOC: RAD 13:45
PROVIDERS: ATTEND Nurse Practitioner Family
DX: J45.909 Unspecified asthma, uncomplicated (principal); J42 Unspecified chronic bronchitis; M89.9 Disorder of bone, unspecified; R16.0 Hepatomegaly, not elsewhere classified; K80.20 Calculus of gallbladder without cholecystitis without obstruction
CPT/HCPCS: 71250; 74176

== ENCOUNTER → 2018-10-24 | Outpatient (CLI) | payer MEDICARE, OTHER ==
--- NOTE | 2018-10-24 16:10 | Diagnostic Imaging Report ---
INDICATION: Renal cell carcinoma. Patient had recently abnormal CT chest, abdomen and pelvis demonstrating multiple new lytic lesions throughout the axial and appendicular skeleton. This study is performed for further evaluation. TECHNIQUE: Serum blood glucose level at the time of injection was 88 mg/dL. Patient was administered 11.3 mCi F-18 FDG intravenously in the left antecubital region and PET imaging was performed from the top of skull to mid thigh. Noncontrast CT was also performed for attenuation correction and anatomic correlation. COMPARISON: Correlation is made with recent CT chest, abdomen and pelvis study from 10/17/2018. In addition, comparison is made with prior PET study from 10/08/2010. FINDINGS: There is symmetric activity throughout the brain. Soft tissues of the neck are unremarkable. A mildly hypermetabolic lytic lesion involving the lateral aspect of the right scapula is seen. SUV max approximately 3.4. There is some low level activity involving anterior ribs. No hilar or mediastinal hypermetabolism is seen. Pulmonary parenchyma is unremarkable. Physiologic activity in the GI and tracts is seen. There is some hypermetabolism involving a lytic lesion identified at the L5-S1 level. This demonstrates SUV max of approximately 4.8. Numerous additional lytic lesions noted on prior CT do not show hypermetabolism, however, these may be too small to be visualized with PET. IMPRESSION: There is some hypermetabolism involving a small lytic lesion involving the lateral portion of the right scapula. There is also hypermetabolism involving a somewhat expansile lytic lesion involving the L5-S1 level. Again, features are concerning for either metastatic disease or myeloma. Dictated by: Dictated on workstation # [id number]
== END ==
LOC: RAD 11:46
PROVIDERS: ATTEND Internal Medicine Critical Care Medicine
DX: C64.9 Malignant neoplasm of unspecified kidney, except renal pelvis (principal); M89.9 Disorder of bone, unspecified

== ENCOUNTER 2018-11-03 10:56 | Day surgery (SDC) | payer MEDICARE, OTHER ==
[2018-11-03] VITALS (17 sets, daily range): BP systolic 131–169; BP diastolic 54–83
[~2018-11-03] VITALS: Ht 170.2 cm; Wt 74.6 kg
[2018-11-03 11:29] LABS: HEMOGLOBIN 11.4 G/DL (13.3-17.7); MEAN PLATELET VOLUME 9.6 FL (7.4-10.4); RED CELL DISTRIBUTION WIDTH 13.3 % (10.0-14.5); WHITE BLOOD COUNT 4.6 10^3/uL (4.3-11.0)
[2018-11-03 11:50] LABS: PROTHROMBIN TIME PATIENT 12.8 SEC (12.2-14.7)
[2018-11-03] MEDS ORDERED: NS IV 1000 ML 1,000 ML ONE (11:58)
[2018-11-03] MEDS ORDERED: TAMS0.4C98 PO (12:13)
[2018-11-03] MEDS ORDERED: FAMO-119 PO (12:13)
[2018-11-03] MEDS ORDERED: AMIT25TA9 PO (12:13)
--- OUTSIDE RECORDS SUMMARY | 2018-11-03 12:13 | XMS REPORT | Clinical Summary ---
Author Author [facility] Organization [facility] Address Unknown Phone Unavailable Care Team Providers Care Packaging Sales Consultant Name Role Phone Liliana Moses Unavailable Mihai Howard PCP Juan F Fernandes MD Unavailable Source Comments Some departments are not documenting in the electronic medical record. If you do not see the information that you expected, contact Release of Information in the Health Information Management department at [phone] for further assistance in locating additional records.[facility] Allergies Comments Active Allergy Reactions Severity Noted Date Carisoprodol ANXIETY, 12/07/2010 DIZZINESS Medications End Date Status Medication Sig Dispensed Refills Start Date Active hydrochlorothiazide Take 12.5 mg 0 (HYDRODIURIL) 25 mg PO by mouth tablet daily. Active cyanocobalamin 1,000 mcg Take 2,000 0 PO tablet mcg by mouth daily. Active ranitidine(+) (ZANTAC) Take 150 mg 0 150 mg PO tablet by mouth as Needed. Active aspirin 81 mg PO chew Take 1 Tab by 90 Tab 0 tablet mouth daily. 1 Do not resume until 12/25/2010. Active oxycodone/acetaminophen Take 1-2 Tabs 45 Tab 0 (PERCOCET) 5/325 mg PO by mouth 1 tablet every 4 hours as needed for Pain. Active lisinopril (PRINIVIL; Take 1 Tab by 90 Tab 0 ZESTRIL) 20 mg PO tablet mouth daily. 1 Follow-up with your PCP prior to resuming your medication. Active docusate (COLACE) 100 mg Take 1 Cap by 180 Cap 0 PO capsule mouth twice 1 daily. Active Problems Not on file Family History Medical History Relation Name Comments Arthritis-osteo Brother Diabetes Brother Heart Attack Brother Hypertension Brother Heart Failure Sister High Cholesterol Sister Hypertension Sister Relation Name Status Comments Brother Sister Social History Date Tobacco Use Types Packs/Day Years Used Quit: 12/08/1979 Former Smoker Alcohol Use Drinks/Week oz/Week Comments No Sex Assigned at Date Recorded Not on file Industry Job Start Date Occupation Not on file Not on file Not on file Travel End Travel History Travel Start No recent travel history available. Last Filed Vital Signs Time Taken Vital Sign Reading 12/19/2010 9:26 AM CDT Blood Pressure 126/71 12/19/2010 9:26 AM CDT Pulse 76 12/19/2010 9:26 AM CDT Temperature 36.7 C (98 F) - Respiratory Rate - 12/19/2010 9:26 AM CDT Oxygen Saturation 95% - Inhaled Oxygen - Concentration 12/07/2010 11:11 AM CDT Weight 75 kg (165 lb 5.5 oz) 12/07/2010 11:11 AM CDT Height 170.2 cm (5' 7") 12/07/2010 11:11 AM CDT Body Mass Index 25.9 Plan of Treatment Health Maintenance Due Date Last Done Comments PHYSICAL (COMPREHENSIVE) 1940 EXAM DTAP/TDAP VACCINES (1 - 1951 Tdap) SHINGLES RECOMBINANT 1983 VACCINE (1 of 2) PNEUMONIA (PCV13/PPSV23) 1998 VACCINES (1 of 2 - PCV13) INFLUENZA VACCINE 04/12/2018 Results Not on filefrom Last 3 Months Advance Directives For more information, please contact: [facility] [address] [place] [address] Date Inactivated Comments Code Status Date Activated 12/19/2010 1:26 PM Full Code 12/17/2010 2:58 PM Provider has discussed Code Status Yes w/Patient or Family?
--- OUTSIDE RECORDS SUMMARY | 2018-11-03 12:14 | XMS REPORT | Continuity of Care Document ---
Author Author [facility] Organization [facility] Address Unknown Phone Unavailable Allergies Active Description Code Type Severity Reaction Onset Reported/Identified Relationship to Patient Clinical Status Yes SOMA MODERATE OTHER Yes carisoprodol [id number] Drug Allergy Unknown N/A 03/03/2017 Yes carisoprodol [id number] Drug Allergy Moderate SHAKING, AGITAT 08/25/2017 Medications Medication Packaging Start Date Stop Date Route Dosage Sig IBUPROFEN TAB 600 MG (MOTRIN) MG 08/24/2017 PRN ONCE Problems Date Dx Coded Attending Type Code Diagnosis Diagnosed By 10/01/2010 Ot 305.1 TOBACCO USE DISORDER 10/01/2010 Ot 401.9 HYPERTENSION NOS 10/01/2010 Ot 491.20 OBSTR CHRONIC BRONCHITIS, W/O EXACERBATI 10/01/2010 Ot 593.9 RENAL URETERAL DIS NOS 10/01/2010 Ot V58.69 OTH MED,LT, CURRENT USE 05/20/2011 Ot 272.4 HYPERLIPIDEMIA NEC/NOS 05/20/2011 Ot 285.9 ANEMIA NOS 05/20/2011 Ot 401.9 HYPERTENSION NOS 05/20/2011 Ot 593.9 RENAL URETERAL DIS NOS 05/20/2011 Ot 786.09 RESPIRATORY ABNORM NEC 05/20/2011 Ot 786.59 CHEST PAIN NEC 05/20/2011 Ot V10.52 HX OF KIDNEY MALIGNANCY 05/20/2011 Ot V45.73 ACQRD ABSENCE OF KIDNEY 05/20/2011 Ot V58.66 LONG-TERM ( CURRENT) USE OF ASPIRIN 05/20/2011 Ot V58.69 OTH MED,LT, CURRENT USE 02/14/2012 Ot 496 CHR AIRWAY OBSTRUCT [...] SOHA KINNEY, FERNANDO A Ot 786.2 10/24/2014 CARLENE IBARRA DO M Ot 490 10/24/2014 FRED DOCARLENE M Ot 786.2 10/24/2014 FRED DO, CARLENE M Ot 793.19 10/24/2014 FRED DOCARLENE M Ot 189.0 10/24/2014 FRED DOCARLENE M Ot 491.9 10/24/2014 FRED DOSPENCERCARLENE M Ot 786.2 10/24/2014 FRED DOCARLENE M Ot 786.30 10/24/2014 FRED DOCARLENE M Ot 490 10/24/2014 CARLENE IBARRA DO M Ot 786.2 10/25/2014 TANIA KINNEY, MARTIN R Ot 780.4 10/25/2014 TANIA KINNEY, MARTIN R Ot 784.0 12/10/2014 TANIA KINNEY, MARTIN R Ot 780.4 12/10/2014 TANIA KINNEY, MARTIN R Ot 784.0 03/08/2015 TANIA KINNEY, MARTIN R Ot 780.4 03/08/2015 TANIA KINNEY, MARTIN R Ot 784.0 07/07/2015 TANIA KINNEY, MARTIN R Ot R16.0 07/17/2015 THEO KINNEY, KRUNAL Harden Ot C64.2 07/29/2015 TANIA KINNEY, MARTIN R Ot R16.0 08/14/2015 THEO KINNEY, KRUNAL Harden Ot C64.2 08/14/2015 TANIA KINNEY, MARTIN R [...] SOHA KINNEY, FERNANDO A Ot 786.2 10/24/2015 FRED DO, CARLENE M Ot 490 10/24/2015 FRED DO, CARLENE M Ot 786.2 10/24/2015 FRED DO, CARLENE M Ot 793.19 10/24/2015 FRED DO, CARLENE M Ot 189.0 10/24/2015 FRED DO, CARLENE M Ot 491.9 10/24/2015 FRED DO, CARLENE M Ot 786.2 10/24/2015 FRED DO, CARLENE M Ot 786.30 10/24/2015 FRED DO, CARLENE M Ot 490 10/24/2015 FRED DO, CARLENE M Ot 786.2 10/24/2015 TANIA KINNEY, MARTIN R Ot 780.4 10/24/2015 TANIA KINNEY, MARTIN R Ot 784.0 10/24/2015 TANIA KINNEY, MARTIN R Ot 780.4 10/24/2015 TANIA KINNEY, MARTIN R Ot 784.0 10/24/2015 TANIA KINNEY, MARTIN R Ot V81.5 10/24/2015 THEO KINNEY, KRUNAL A Ot C64.2 10/24/2015 TANIA KINNEY, MARTIN R Ot R16.0 10/24/2015 JANET KINNEY, ANA Kuo Ot M43.16 SPONDYLOLISTHESIS, LUMBAR REGION 10/24/2015 ANA GONZALES MD Ot M54.16 RADICULOPATHY, LUMBAR REGION 11/03/2015 JENI HAN DO Ot F17.211 NICOTINE DEPENDENCE, CIGARETTES, IN SIL 11/03/2015 JENI HAN DO Ot K57.90 DVRTCLOS OF INTEST, PART UNSP, W/O PERF 11/03/2015 JENI HAN DO Ot K80.20 CALCULUS OF GALLBLADDER W/O CHOLECYSTITI 11/03/2015 JENI HAN DO Ot N40.1 ENLARGED PROSTATE WITH LOWER URINARY TRA 11/03/2015 JENI HAN DO Ot Z90.5 ACQUIRED ABSENCE OF KIDNEY 11/21/2015 TANIA KINNEY, MARTIN Arriaga Ot M54.5 12/07/2015 DAVID LEHMAN ROUNDHOUSE FIRER/FIREMAN Ot K57.32 DVTRCLI OF LG INT W/O PERFORATION OR ABS 12/07/2015 DAVID LEHMAN ROUNDHOUSE FIRER/FIREMAN Ot K80.20 CALCULUS OF GALLBLADDER W/O CHOLECYSTITI 12/07/2015 DAVID LEHMAN ROUNDHOUSE FIRER/FIREMAN Ot N40.1 ENLARGED PROSTATE WITH LOWER URINARY TRA 12/07/2015 DAVID LEHMAN ROUNDHOUSE FIRER/FIREMAN Ot Z98.89 OTHER SPECIFIED POSTPROCEDURAL STATES 12/09/2015 DAVID LEHMAN ROUNDHOUSE FIRER/FIREMAN Ot K57.32 12/09/2015 DAVID LEHMAN ROUNDHOUSE FIRER/FIREMAN Ot K80.20 12/09/2015 DAVID LEHMAN ROUNDHOUSE FIRER/FIREMAN Ot N40.1 12/09/2015 DAVID LEHMAN ROUNDHOUSE FIRER/FIREMAN Ot Z98.89 12/17/2015 TANIA KINNEY, MARTIN Arriaga Ot M54.5 06/10/2016 Ot 593.9 RENAL URETERAL [...] MARTIN R Ot 780.60 FEVER, UNSPECIFIED 06/10/2016 MARTIN MARIN MD R Ot 786.2 COUGH 06/10/2016 SOHA KINNEY, [...] CARLENE IBARRA DO Ot 786.2 COUGH 06/10/2016 MARTIN MARIN MD R Ot 780.4 DIZZINESS AND GIDDINESS 06/10/2016 TANIA KINNEY, MARTIN R Ot 784.0 HEADACHE 06/10/2016 MARTIN MARIN MD R Ot 780.4 DIZZINESS AND GIDDINESS 06/10/2016 [...] Ot 786.2 COUGH 08/09/2016 CARLENE IBARRA DO Ot 490 BRONCHITIS NOS 08/09/2016 CARLENE IBARRA DO Ot 786.2 COUGH 08/09/2016 CARLENE IBARRA DO Ot 793.19 OTHER NONSPECIFIC ABNORMAL FINDING OF DEANNA 08/09/2016 CARLENE IBARRA DO Ot 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 08/09/2016 CARLENE IBARRA DO Ot 491.9 CHRONIC BRONCHITIS NOS 08/09/2016 CARLENE IBARRA DO Ot 786.2 COUGH 08/09/2016 CARLENE IBARRA DO Ot 786.30 HEMOPTYSIS, UNSPECIFIED 08/09/2016 CARLENE IBARRA DO Ot 490 BRONCHITIS NOS 08/09/2016 CARLENE IBARRA DO Ot 786.2 COUGH 08/09/2016 TANIA KINNEY, MARTIN R Ot 780.4 DIZZINESS AND GIDDINESS 08/09/2016 TANIA KINNEY, MARTIN R Ot 784.0 HEADACHE 08/09/2016 TANIA KINNEY, MARTIN R Ot 780.4 DIZZINESS AND GIDDINESS 08/09/2016 TANIA KINNEY, MARTIN R Ot 784.0 HEADACHE 08/09/2016 TANIA KINNEY, MARTIN R Ot V81.5 SCREEN FOR NEPHROPATHY 08/09/2016 THEO KINNEY, KRUNAL Harden Ot C64.2 MALIGNANT NEOPLASM OF LEFT KIDNEY, EXCEP 08/09/2016 TANIA KINNEY, MARTIN R Ot R16.0 HEPATOMEGALY, NOT ELSEWHERE CLASSIFIED 08/09/2016 TANIA KINNEY, MARTIN R Ot M54.5 LOW BACK PAIN 08/10/2016 THEO KINNEY, KRUNAL Harden Ot C64.9 MALIGNANT NEOPLASM OF UNSP KIDNEY, EXCEP 08/10/2016 THEO KINNEY, KRUNAL Harden Ot Z08 ENCNTR FOR FOLLOW-UP EXAM AFTER TRTMT FO 08/10/2016 THEO KINNEY, KRUNAL Hadren Ot Z85.528 PERSONAL HISTORY OF OTHER MALIGNANT NEOP 08/31/2016 TEHO KINNEY, KRUNAL Dereck Ot Z08 ENCNTR FOR FOLLOW-UP EXAM AFTER TRTMT FO 08/31/2016 THEO KINNEY, KRUNAL Harden Ot Z85.528 PERSONAL HISTORY OF OTHER MALIGNANT NEOP 09/22/2016 THEO KINNEY, KRUNAL Harden Ot Z08 ENCNTR FOR FOLLOW-UP EXAM AFTER TRTMT FO 09/22/2016 THEO KINNEY, KRUNAL Dereck Ot Z85.528 PERSONAL HISTORY OF OTHER MALIGNANT [...] Ot 571.8 CHRONIC LIVER DIS NEC 11/29/2016 THEO KINNEY, KRUNAL A Ot 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 11/29/2016 TANIA KINNEY, MARTIN R Ot 780.60 FEVER, UNSPECIFIED 11/29/2016 TANIA KINNEY, MARTIN R Ot 786.2 COUGH 11/29/2016 SOHA KINNEY, FERNANDO A Ot 491.9 CHRONIC BRONCHITIS NOS 11/29/2016 SOHA KINNEY, FERNANDO A Ot 786.09 RESPIRATORY ABNORM NEC 11/29/2016 SOHA KINNEY, FERNANDO A Ot 786.2 COUGH 11/29/2016 CARLENE IBARRA DO Ot 490 BRONCHITIS NOS 11/29/2016 CARLENE IBARRA DO M Ot 786.2 COUGH 11/29/2016 CARLENE IBARRA DO Ot 793.19 OTHER NONSPECIFIC ABNORMAL FINDING OF DEANNA 11/29/2016 CARLENE IBARRA DO Ot 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 11/29/2016 CARLENE IBARRA DO Ot 491.9 CHRONIC BRONCHITIS NOS 11/29/2016 CARLENE IBARRA DO Ot 786.2 COUGH 11/29/2016 CARLENE IBARRA DO Ot 786.30 HEMOPTYSIS, UNSPECIFIED 11/29/2016 CARLENE IBARRA DO Ot 490 BRONCHITIS NOS 11/29/2016 CARLENE IBARRA DO Ot 786.2 COUGH 11/29/2016 TANIA KINNEY, MARTIN R Ot 780.4 DIZZINESS AND GIDDINESS 11/29/2016 TANIA KINNEY MARTIN R Ot 784.0 HEADACHE 11/29/2016 TANIA KINNEY, MARTIN R Ot 780.4 DIZZINESS AND GIDDINESS 11/29/2016 TANIA KINNEY, MARTIN R Ot 784.0 HEADACHE 11/29/2016 TANIA KINNEY, MARTIN R Ot V81.5 SCREEN FOR NEPHROPATHY 11/29/2016 THEO KINNEY, KRUNAL A Ot C64.2 MALIGNANT NEOPLASM OF LEFT KIDNEY, EXCEP 11/29/2016 TANIA KINNEY, MARTIN R Ot R16.0 HEPATOMEGALY, NOT ELSEWHERE CLASSIFIED 11/29/2016 TANIA KINNEY, MARTIN R Ot M54.5 LOW BACK PAIN 11/29/2016 KRUNAL VENEGAS MD, Ot Z08 ENCNTR FOR FOLLOW-UP EXAM AFTER TRTMT FO 11/29/2016 KRUNAL VENEGAS MD, Ot Z85.528 PERSONAL HISTORY OF OTHER MALIGNANT NEOP 03/03/2017 KRUNAL VENEGAS MD Ot N40.0 BENIGN PROSTATIC HYPERPLASIA WITHOUT LOW 03/03/2017 KRUNAL VENEGAS MD Ot Z01.812 ENCOUNTER FOR PREPROCEDURAL LABORATORY E 03/03/2017 KRUNAL VENEGAS MD Ot Z11.2 ENCOUNTER FOR SCREENING FOR OTHER BACTER 03/08/2017 KRUNAL VENEGAS MD Ot E11.9 TYPE 2 DIABETES MELLITUS WITHOUT COMPLIC 03/08/2017 KRUNAL VENEGAS MD Ot E78.00 PURE HYPERCHOLESTEROLEMIA, UNSPECIFIED 03/08/2017 KRUNAL VENEGAS MD Ot I10 ESSENTIAL (PRIMARY) HYPERTENSION 03/08/2017 KRUNAL VENEGAS MD Ot N40.0 BENIGN PROSTATIC HYPERPLASIA WITHOUT LOW 03/08/2017 KRUNAL VENEGAS MD Ot Z79.84 NATIONAL INSURANCE OFFICER (CURRENT) USE OF ORAL HYPOGLYC 03/08/2017 KRUNAL VENEGAS MD, Ot Z79.899 OTHER NATIONAL INSURANCE OFFICER (CURRENT) DRUG THERAPY 03/09/2017 KRUNAL VENEGAS MD Ot N40.0 BENIGN PROSTATIC HYPERPLASIA WITHOUT LOW 03/09/2017 KRUNAL VENEGAS MD, Ot Z01.812 ENCOUNTER FOR PREPROCEDURAL LABORATORY E 03/09/2017 KRUNAL VENEGAS MD, Ot Z11.2 ENCOUNTER FOR SCREENING FOR OTHER BACTER 03/10/2017 Krunal Venegas 788.20 RETENTION OF URINE, UNSPECIFIED 03/10/2017 Krunal Venegas R33.9 RETENTION OF URINE, UNSPECIFIED 03/12/2017 Dileep Ramires 250.00 DIABETES MELLITUS WITHOUT MENTION OF COMPLICATION, TYPE II OR UNSPECIFIED TYPE, NOT STATED UNCONTROLLED 03/12/2017 Dileep Ramires 401.0 MALIGNANT ESSENTIAL HYPERTENSION 03/12/2017 Dileep Ramires 682.3 CELLULITIS AND ABSCESS OF UPPER ARM AND FOREARM 03/12/2017 Howayek, Dileep W E11.9 TYPE 2 DIABETES MELLITUS WITHOUT COMPLICATIONS 03/12/2017 Keyla Dileep W I10 ESSENTIAL (PRIMARY) HYPERTENSION 03/12/2017 ArielmaicoginnaDileep A L03.114 CELLULITIS OF LEFT UPPER LIMB 03/15/2017 ArielmaicoginnaDileep A 682.3 CELLULITIS AND ABSCESS OF UPPER ARM AND FOREARM 03/15/2017 KeylaDileep L03.114 CELLULITIS OF LEFT UPPER LIMB 07/06/2017 MARTIN MARIN MD Ot M79.604 PAIN IN RIGHT LEG 07/06/2017 MARTIN MARIN MD Ot R22.41 LOCALIZED SWELLING, MASS AND LUMP, RIGHT 07/09/2017 DAVID LEHMAN APRN Ot I10 ESSENTIAL (PRIMARY) HYPERTENSION 07/09/2017 DAVID LEHMAN APRN Ot K21.9 GASTRO-ESOPHAGEAL REFLUX DISEASE WITHOUT 07/09/2017 DAVID LEHMAN APRN Ot R26.89 OTHER ABNORMALITIES OF GAIT AND MOBILITY 07/09/2017 DAVID LEHMAN APRN Ot R42 DIZZINESS AND GIDDINESS 07/09/2017 DAVID LEHMAN APRN Ot Z79.84 CARE HOME (CURRENT) USE OF ORAL HYPOGLYC 07/09/2017 DAVID LEHMAN APRN Ot Z85.528 PERSONAL HISTORY OF OTHER MALIGNANT NEOP 07/09/2017 DAVID LEHMAN APRN Ot Z87.891 PERSONAL HISTORY OF NICOTINE DEPENDENCE 07/09/2017 DAVID LEHMAN APRN Ot Z90.5 ACQUIRED ABSENCE OF KIDNEY 07/09/2017 DAVID LEHMAN APRN Ot Z97.4 PRESENCE OF EXTERNAL HEARING-AID 07/12/2017 MARTIN MARIN MD Ot Z86.73 PRSNL HX OF TIA (TIA), AND CEREB INFRC W 07/12/2017 MARTIN MARIN MD Ot Z86.73 PRSNL HX OF TIA (TIA), AND CEREB INFRC W 07/14/2017 MARTIN MARIN MD Ot Z86.73 PRSNL HX OF TIA (TIA), AND CEREB INFRC W 07/22/2017 Ot 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 07/22/2017 Ot 571.8 CHRONIC LIVER DIS NEC 07/22/2017 Ot 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 07/22/2017 Ot 562.10 DIVERTICULOSIS COLON (W/O MENT OF HEMORR 07/22/2017 Ot 571.8 CHRONIC LIVER DIS NEC 07/22/2017 KRUNAL VENEGAS MD Ot 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 07/22/2017 TANIA KINNEY, MARTIN R Ot 780.60 FEVER, UNSPECIFIED 07/22/2017 TANIA KINNEY, MARTIN R Ot 786.2 COUGH 07/22/2017 SOHA KINNEY, FERNANDO A Ot 491.9 CHRONIC BRONCHITIS NOS 07/22/2017 SOHA KINNEY, FERNANDO A Ot 786.09 RESPIRATORY ABNORM NEC 07/22/2017 SOHA KINNEY, FERNANDO A Ot 786.2 COUGH 07/22/2017 FRED SMITH CARLENE M Ot 490 BRONCHITIS NOS 07/22/2017 FRED DO CARLENE M Ot 786.2 COUGH 07/22/2017 FRED DO CARLENE M Ot 793.19 OTHER NONSPECIFIC ABNORMAL FINDING OF DEANNA 07/22/2017 SPENCER IBARRA DOSON M Ot 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 07/22/2017 FRED SMITH CARLENE M Ot 491.9 CHRONIC BRONCHITIS NOS 07/22/2017 FRED SMITH CARLENE M Ot 786.2 COUGH 07/22/2017 FRED SMITH CARLENE M Ot 786.30 HEMOPTYSIS, UNSPECIFIED 07/22/2017 SPENCER IBARRA DOSON M Ot 490 BRONCHITIS NOS 07/22/2017 FRED SMITH CARLENE M Ot 786.2 COUGH 07/22/2017 MARTIN MARIN MD R Ot 780.4 DIZZINESS AND GIDDINESS 07/22/2017 TANIA KINNEY MARTIN R Ot 784.0 HEADACHE 07/22/2017 TANIA KINNEY, MARTIN R Ot 780.4 DIZZINESS AND GIDDINESS 07/22/2017 TANIA KINNEY, MARTIN R Ot 784.0 HEADACHE 07/22/2017 MARTIN MARIN MD R Ot V81.5 SCREEN FOR NEPHROPATHY 07/22/2017 KRUNAL VENEGAS MD Ot C64.2 MALIGNANT NEOPLASM OF LEFT KIDNEY, EXCEP 07/22/2017 MARTIN MARIN MD R Ot R16.0 HEPATOMEGALY, NOT ELSEWHERE CLASSIFIED 07/22/2017 MARTIN MARIN MD R Ot M54.5 LOW BACK PAIN 07/22/2017 KRUNAL VENEGAS MD Ot Z08 ENCNTR FOR FOLLOW-UP EXAM AFTER TRTMT FO 07/22/2017 KRUNAL VENEGAS MD, Ot Z85.528 PERSONAL HISTORY OF OTHER MALIGNANT NEOP 07/22/2017 MARTIN MARIN MD Ot M79.604 PAIN IN RIGHT LEG 07/22/2017 MARTIN MARIN MD Ot R22.41 LOCALIZED SWELLING, MASS AND LUMP, RIGHT 07/22/2017 MARTIN MARIN MD R Ot 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 07/22/2017 MARTIN MARIN MD R Ot Z86.73 PRSNL HX OF TIA (TIA), AND CEREB INFRC W 08/02/2017 MARTIN MARIN MD Ot M79.604 PAIN IN RIGHT LEG 08/02/2017 MARTIN MARIN MD Ot R22.41 LOCALIZED SWELLING, MASS AND LUMP, RIGHT 08/08/2017 MARTIN MARIN MD Ot 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 08/08/2017 MARTIN MARIN MD Ot Z86.73 PRSNL HX OF TIA (TIA), AND CEREB INFRC W 08/24/2017 David Lehman 401.0 MALIGNANT ESSENTIAL HYPERTENSION 08/24/2017 David Lehman 465.8 ACUTE UPPER RESPIRATORY INFECTIONS OF OTHER MULTIPLE SITES 08/24/2017 David Lehman 780.60 FEVER, UNSPECIFIED 08/24/2017 David Lehman I10 ESSENTIAL (PRIMARY) HYPERTENSION 08/24/2017 David Lehman J06.9 ACUTE UPPER RESPIRATORY INFECTION, UNSPECIFIED 08/24/2017 David Lehman R50.9 FEVER, UNSPECIFIED 08/27/2017 DANE SMITH RANJIT Ot E11.9 TYPE 2 DIABETES MELLITUS WITHOUT COMPLIC 08/27/2017 DANE SMITH RANJIT Ot E86.0 DEHYDRATION 08/27/2017 DANE SMITH RANJIT Ot I10 ESSENTIAL (PRIMARY) HYPERTENSION 08/27/2017 MARGARET VELA DOI Ot J18.9 PNEUMONIA, UNSPECIFIED ORGANISM 08/27/2017 MARGARET VELA DOI Ot J44.0 CHRONIC OBSTRUCTIVE PULMON DISEASE W ACU 08/27/2017 MARGARET VELA DOI Ot J45.909 UNSPECIFIED ASTHMA, UNCOMPLICATED 08/27/2017 RANJIT VELA DO Ot Z79.82 NATIONAL INSURANCE OFFICER (CURRENT) USE OF ASPIRIN 08/27/2017 RANJIT VELA DO Ot Z79.84 CARE HOME (CURRENT) USE OF ORAL HYPOGLYC 08/27/2017 RANJIT VELA DO Ot Z79.899 OTHER CARE HOME (CURRENT) DRUG THERAPY 08/27/2017 RANJIT VELA DO Ot Z87.891 PERSONAL HISTORY OF NICOTINE DEPENDENCE 08/27/2017 RANJIT VELA DO Ot Z88.8 ALLERGY STATUS TO OTH DRUG/MEDS/BIOL SUB 08/29/2017 TANIA KINNEY, MARTIN Arriaga Ot 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 08/29/2017 TANIA KINNEY, MARTIN Arriaga Ot Z86.73 PRSNL HX OF TIA (TIA), AND CEREB INFRC W 10/06/2017 DERECK CISNEROS ROUNDHOUSE FIRER/FIREMAN Ot J18.9 PNEUMONIA, UNSPECIFIED ORGANISM 10/06/2017 DERECK CISNEROS ROUNDHOUSE FIRER/FIREMAN Ot J44.9 CHRONIC OBSTRUCTIVE PULMONARY DISEASE, U 10/06/2017 DERECK CISNEROS ROUNDHOUSE FIRER/FIREMAN Ot J18.9 PNEUMONIA, UNSPECIFIED ORGANISM 10/06/2017 DERECK CISNEROS ROUNDHOUSE FIRER/FIREMAN Ot J44.9 CHRONIC OBSTRUCTIVE PULMONARY DISEASE, U 10/26/2017 DERECK CISNEROS ROUNDHOUSE FIRER/FIREMAN Ot J18.9 PNEUMONIA, UNSPECIFIED ORGANISM 10/26/2017 DERECK CISNEROS ROUNDHOUSE FIRER/FIREMAN Ot J44.9 CHRONIC OBSTRUCTIVE PULMONARY DISEASE, U 11/22/2017 DERECK CISNEROS ROUNDHOUSE FIRER/FIREMAN Ot J18.9 PNEUMONIA, UNSPECIFIED ORGANISM 11/22/2017 DERECK CISNEROS ROUNDHOUSE FIRER/FIREMAN Ot J44.9 CHRONIC OBSTRUCTIVE PULMONARY DISEASE, U 09/22/2018 THEO KINNEY, KRUNAL A Ot 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 09/22/2018 TANIA KINNEY, MARTIN R Ot 780.60 FEVER, UNSPECIFIED 09/22/2018 TANIA KINNEY, MARTIN R Ot 786.2 COUGH 09/22/2018 SOHA KINNEY, FERNANDO A Ot 491.9 CHRONIC BRONCHITIS NOS 09/22/2018 SOHA KINNEY, FERNANDO A Ot 786.09 RESPIRATORY ABNORM NEC 09/22/2018 SOHA KINNEY, FERNANDO A Ot 786.2 COUGH 09/22/2018 FRED DO, CARLENE M Ot 490 BRONCHITIS NOS 09/22/2018 FRED DO, CARLEEN M Ot 786.2 COUGH 09/22/2018 FRED DO, CARLENE M Ot 793.19 OTHER NONSPECIFIC ABNORMAL FINDING OF DEANNA 09/22/2018 CARLENE IBARRA DO M Ot 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 09/22/2018 FRED DO, CARLENE M Ot 491.9 CHRONIC BRONCHITIS NOS 09/22/2018 FRED DO, CARLENE M Ot 786.2 COUGH 09/22/2018 FRED DO, CARLENE M Ot 786.30 HEMOPTYSIS, UNSPECIFIED 09/22/2018 FRED DO, CARLENE M Ot 490 BRONCHITIS NOS 09/22/2018 FRED DO, CARLENE M Ot 786.2 COUGH 09/22/2018 MARTIN MARIN MD R Ot 780.4 DIZZINESS AND GIDDINESS 09/22/2018 MARTIN MARIN MD R Ot 784.0 HEADACHE 09/22/2018 MARTIN MARIN MD R Ot 780.4 DIZZINESS AND GIDDINESS 09/22/2018 MARTIN MARIN MD R Ot 784.0 HEADACHE 09/22/2018 TANIA KINNEY, MARTIN R Ot V81.5 SCREEN FOR NEPHROPATHY 09/22/2018 KRUNAL VENEGAS MD Ot C64.2 MALIGNANT NEOPLASM OF LEFT KIDNEY, EXCEP 09/22/2018 MARTIN MARIN MD R Ot R16.0 HEPATOMEGALY, NOT ELSEWHERE CLASSIFIED 09/22/2018 MARTIN MARIN MD R Ot M54.5 LOW BACK PAIN 09/22/2018 KRUNAL VENEGAS MD Ot Z08 ENCNTR FOR FOLLOW-UP EXAM AFTER TRTMT FO 09/22/2018 KRUNAL VENEGAS MD, Ot Z85.528 PERSONAL HISTORY OF OTHER MALIGNANT NEOP 09/22/2018 MARTIN MARIN MD R Ot M79.604 PAIN IN RIGHT LEG 09/22/2018 MARTIN MARIN MD R Ot R22.41 LOCALIZED SWELLING, MASS AND LUMP, RIGHT 09/22/2018 MARTIN MARIN MD R Ot 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 09/22/2018 MARTIN MARIN MD R Ot Z86.73 PRSNL HX OF TIA (TIA), AND CEREB INFRC W 09/22/2018 DERECK CISNEROS APRN Ot J18.9 PNEUMONIA, UNSPECIFIED ORGANISM 09/22/2018 DERECK CISNEROS ROUNDHOUSE FIRER/FIREMAN Ot J44.9 CHRONIC OBSTRUCTIVE PULMONARY DISEASE, U 09/25/2018 JUSTYN, EMANUEL R ROUNDHOUSE FIRER/FIREMAN Ot 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 09/25/2018 JUSTYN, EMANUEL R ROUNDHOUSE FIRER/FIREMAN Ot M51.36 OTHER INTERVERTEBRAL DISC DEGENERATION, 09/25/2018 JUSTYN, EMANUEL R ROUNDHOUSE FIRER/FIREMAN Ot 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 09/25/2018 JUSTYN, EMANUEL R ROUNDHOUSE FIRER/FIREMAN Ot M51.36 OTHER INTERVERTEBRAL DISC DEGENERATION, 09/25/2018 JUSTYN, EMANUEL R ROUNDHOUSE FIRER/FIREMAN Ot 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 09/25/2018 JUSTYN, EMANUEL R ROUNDHOUSE FIRER/FIREMAN Ot M51.36 OTHER INTERVERTEBRAL DISC DEGENERATION, 10/17/2018 DERECK CISNEROS ROUNDHOUSE FIRER/FIREMAN Ot J42 UNSPECIFIED CHRONIC BRONCHITIS 10/17/2018 DERECK CISNEROS ROUNDHOUSE FIRER/FIREMAN Ot J45.909 UNSPECIFIED ASTHMA, UNCOMPLICATED 10/17/2018 DERECK CISNEROS APRN Ot K80.20 CALCULUS OF GALLBLADDER W/O CHOLECYSTITI 10/17/2018 DERECK CISNEROS ROUNDHOUSE FIRER/FIREMAN Ot M89.9 DISORDER OF BONE, UNSPECIFIED 10/17/2018 DERECK CISNEROS APRN Ot R16.0 HEPATOMEGALY, NOT ELSEWHERE CLASSIFIED 10/23/2018 USHA ALEJANDRAINA R ROUNDHOUSE FIRER/FIREMAN Ot 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 10/23/2018 JUSTYN, EMANUEL R ROUNDHOUSE FIRER/FIREMAN Ot M51.36 OTHER INTERVERTEBRAL DISC DEGENERATION, 10/24/2018 CARLENE IBARRA DO Ot C64.9 MALIGNANT NEOPLASM OF UNSP KIDNEY, EXCEP 10/24/2018 CARELNE IBARRA DO Ot M89.9 DISORDER OF BONE, UNSPECIFIED Procedures There is no data. Results Test Result Range Complete blood count (CBC) with automated white blood cell (WBC) differential - 03/03/17 13:10 Blood leukocytes automated count (number/volume) 6.8 10*3/uL 4.3-11.0 Blood erythrocytes automated count (number/volume) 4.26 10*6/uL 4.35-5.85 Venous blood hemoglobin measurement (mass/volume) 13.0 [...] Automated blood platelet mean volume measurement 10.7 [foz_us] 7.4-10.4 Automated blood neutrophils/100 leukocytes 55 % [...] Serum or plasma sodium measurement (moles/volume) 141 mmol/L 135-145 Serum or plasma potassium measurement (moles/volume) 3.6 mmol/L 3.6-5.0 Serum or plasma chloride measurement (moles/volume) 105 mmol/L 98-107 Carbon dioxide 28 mmol/L 21-32 Serum or plasma anion gap determination (moles/volume) 8 mmol/L 5-14 Serum or plasma urea nitrogen measurement (mass/volume) 23 mg/dL 7-18 Serum or plasma creatinine measurement (mass/volume) 1.43 mg/dL 0.60-1.30 Serum or plasma urea nitrogen/creatinine mass ratio 16 0 -20 Serum or plasma creatinine measurement with calculation of estimated glomerular filtration rate 47 NRG Serum or plasma glucose measurement (mass/volume) 96 mg/dL 70-105 Serum or plasma calcium measurement (mass/volume) 9.2 mg/dL 8.5-10.1 Methicillin resistant Staphylococcus aureus (MRSA) screening culture - 13:10 Methicillin resistant Staphylococcus aureus (MRSA) screening culture NEG NRG Capillary blood glucose measurement by glucometer (mass/volume) - 03/08/17 07: 20 Capillary blood glucose measurement by glucometer (mass/volume) 127 mg/dL 70-110 Capillary blood glucose measurement by glucometer (mass/volume) - 03/08/17 12: 16 Capillary blood glucose measurement by glucometer (mass/volume) 95 mg/dL 70-110 Urinalysis - 03/10/17 12:18 Icotest N/A Negative Urine Crystals trace of urate amorphous Urine Volume Urine Volume Sufficient (10mL) Urine Yeast No Yeast present Urine-Appearance Cloudy Clear Urine-Bacteria Negative Urine-Bilirubin Negative Negative Urine-Blood 3+ Negative Urine-Color Duval Colorless-Lt. Yellow Urine-Glucose Trace Negative Urine-Ketones Negative Negative Urine-Leukocytes Trace Negative Urine-Nitrite Positive Negative Urine-Other Urine Saved if Culture Needed (48hrs from time of collection) Urine-pH 5.0 5-8.5 Urine-Protein 2+ Negative Urine-RBC 10-20/HPF Urine-Specific [place] <=1.005 1.000-1.030 Urine-WBC Rare/HPF Urobilinogen 1.0 E.U./dL 0.2-1.0 BMP - 03/12/17 17:54 Anion Gap 15 6-14 BUN 21 mg/dL 5-25 Calcium 9.5 mg/dL 8.3-10.4 Chloride 101 mmol/L 95-114 CO2 29 mEq/L 22-33 Creat 1.31 mg/dL 0.50-1.50 eGFR 52 mL/min/1.73m2 >59 Glucose 106 mg/dL 70-110 Osmo 294 280-295 Potassium 3.6 mmol/L 3.5-5.3 Sodium 141 mmol/L 134-148 Sed Rate - 03/12/17 17:54 Sed Rate 15 mm/hr 0-9 Complete blood count (CBC) with automated white blood cell (WBC) differential - 07/09/17 11:20 Blood leukocytes automated count (number/volume) 6.7 10*3/uL 4.3-11.0 Blood erythrocytes automated count (number/volume) 4.36 10*6/uL 4.35-5.85 Venous blood hemoglobin measurement (mass/volume) 13.4 g/dL 13.3-17.7 Blood hematocrit (volume fraction) 40 % 40-54 Automated erythrocyte mean corpuscular volume 92 [foz_us] 80-99 Automated erythrocyte mean corpuscular hemoglobin (mass per erythrocyte) 31 pg 25-34 Automated erythrocyte mean corpuscular hemoglobin concentration measurement ( mass/volume) 33 g/dL 32-36 Automated erythrocyte distribution width ratio 13.0 % 10.0-14.5 Automated blood platelet count (count/volume) 196 10*3/uL 130-400 Automated blood platelet mean volume measurement 10.6 [foz_us] 7.4-10.4 Automated blood neutrophils/100 leukocytes 59 % 42-75 Automated blood lymphocytes/100 leukocytes 24 % 12-44 Blood monocytes/100 leukocytes 8 % 0-12 Automated blood eosinophils/100 leukocytes 9 % 0-10 Automated blood basophils/100 leukocytes 0 % 0-10 Blood neutrophils automated count (number/volume) 4.0 10*3 1.8-7.8 Blood lymphocytes automated count (number/volume) 1.6 10*3 1.0-4.0 Blood monocytes automated count (number/volume) 0.5 10*3 0.0-1.0 Automated eosinophil count 0.6 10*3/uL 0.0-0.3 Automated blood basophil count (count/volume) 0.0 10*3/uL 0.0-0.1 Fibrin D-dimer FEU measurement in platelet poor plasma (mass/volume) - 11:20 Fibrin D-dimer FEU measurement in platelet poor plasma (mass/volume) 0.32 ug/mL 0.00-0.49 Comprehensive metabolic panel - 07/09/17 11:20 Serum or plasma sodium measurement (moles/volume) 139 mmol/L 135-145 Serum or plasma potassium measurement (moles/volume) 3.6 mmol/L 3.6-5.0 Serum or plasma chloride measurement (moles/volume) 101 mmol/L 98-107 Carbon dioxide 29 mmol/L 21-32 Serum or plasma anion gap determination (moles/volume) 9 mmol/L 5-14 Serum or plasma urea nitrogen measurement (mass/volume) 24 mg/dL 7-18 Serum or plasma creatinine measurement (mass/volume) 1.29 mg/dL 0.60-1.30 Serum or plasma urea nitrogen/creatinine mass ratio 19 NRG Serum or plasma creatinine measurement with calculation of estimated glomerular filtration rate 53 NRG Serum or plasma glucose measurement (mass/volume) 102 mg/dL 70-105 Serum or plasma calcium measurement (mass/volume) 9.5 mg/dL 8.5-10.1 Serum or plasma total bilirubin measurement (mass/volume) 0.3 mg/dL 0.1-1.0 Serum or plasma alkaline phosphatase measurement (enzymatic activity/volume) 80 U/L 40-136 Serum or plasma aspartate aminotransferase measurement (enzymatic activity/ volume) 13 U/L 5-34 Serum or plasma alanine aminotransferase measurement (enzymatic activity/volume ) 26 U/L 0-55 Serum or plasma protein measurement (mass/volume) 6.8 g/dL 6.4-8.2 Serum or plasma albumin measurement (mass/volume) 4.1 g/dL 3.2-4.5 Complete urinalysis with reflex to culture - 07/09/17 11:52 Urine color determination YELLOW NRG Urine clarity determination CLEAR NRG Urine pH measurement by test strip 6 5-9 Specific gravity of urine by test strip 1.015 1.016- 1.022 Urine protein assay by test strip, semi-quantitative NEGATIVE NEGATIVE Urine glucose detection by automated test strip NEGATIVE NEGATIVE Erythrocytes detection in urine sediment by light microscopy NEGATIVE NEGATIVE Urine ketones detection by automated test strip NEGATIVE NEGATIVE Urine nitrite detection by test strip NEGATIVE NEGATIVE Urine total bilirubin detection by test strip NEGATIVE NEGATIVE Urine urobilinogen measurement by automated test strip (mass/volume) NORMAL NORMAL Urine leukocyte esterase detection by dipstick NEGATIVE NEGATIVE Automated urine sediment erythrocyte count by microscopy (number/high power field) NONE NRG Automated urine sediment leukocyte count by microscopy (number/high power field ) NONE NRG Bacteria detection in urine sediment by light microscopy NEGATIVE NRG Squamous epithelial cells detection in urine sediment by light microscopy NONE NRG Crystals detection in urine sediment by light microscopy NONE NRG Casts detection in urine sediment by light microscopy NONE NRG Mucus detection in urine sediment by light microscopy NEGATIVE NRG Complete urinalysis with reflex to culture NO NRG Mycoplasma - 08/24/17 14:43 Mycoplasma Negative Negative Blood lactic acid measurement (moles/volume) - 08/25/17 13:15 Blood lactic acid measurement (moles/volume) 1.08 mmol/L 0.50-2.00 Comprehensive metabolic panel - 08/25/17 13:15 Serum or plasma sodium measurement (moles/volume) 138 mmol/L 135-145 Serum or plasma potassium measurement (moles/volume) 3.3 mmol/L 3.6-5.0 Serum or plasma chloride measurement (moles/volume) 102 mmol/L 98-107 Carbon dioxide 26 mmol/L 21-32 Serum or plasma anion gap determination (moles/volume) 10 mmol/L 5-14 Serum or plasma urea nitrogen measurement (mass/volume) 20 mg/dL 7-18 Serum or plasma creatinine measurement (mass/volume) 1.17 mg/dL 0.60-1.30 Serum or plasma urea nitrogen/creatinine mass ratio 17 NRG Serum or plasma creatinine measurement with calculation of estimated glomerular filtration rate 59 NRG Serum or plasma glucose measurement (mass/volume) 88 mg/dL 70-105 Serum or plasma calcium measurement (mass/volume) 8.5 mg/dL 8.5-10.1 Serum or plasma total bilirubin measurement (mass/volume) 0.4 mg/dL 0.1-1.0 Serum or plasma alkaline phosphatase measurement (enzymatic activity/volume) 82 U/L 40-136 Serum or plasma aspartate aminotransferase measurement (enzymatic activity/ volume) 33 U/L 5-34 Serum or plasma alanine aminotransferase measurement (enzymatic activity/volume ) 67 U/L 0-55 Serum or plasma protein measurement (mass/volume) 6.8 g/dL 6.4-8.2 Serum or plasma albumin measurement (mass/volume) 3.9 g/dL 3.2-4.5 Serum or plasma phosphate measurement (mass/volume) - 08/25/17 13:15 Serum or plasma phosphate measurement (mass/volume) 2.3 mg/dL 2.3-4.7 Magnesium - 08/25/17 13:15 Magnesium 1.7 mg/dL 1.8-2.4 Automated blood complete blood count (hemogram) panel - 08/25/17 13:15 Blood leukocytes automated count (number/volume) 7.9 10*3/uL 4.3-11.0 Blood erythrocytes automated count (number/volume) 3.81 10*6/uL 4.35-5.85 Venous blood hemoglobin measurement (mass/volume) 11.7 g/dL 13.3-17.7 Blood hematocrit (volume fraction) 35 % 40-54 Automated erythrocyte mean corpuscular volume 93 [foz_us] 80-99 Automated erythrocyte mean corpuscular hemoglobin (mass per erythrocyte) 31 pg 25-34 Automated erythrocyte mean corpuscular hemoglobin concentration measurement ( mass/volume) 33 g/dL 32-36 Automated erythrocyte distribution width ratio 13.1 % 10.0-14.5 Automated blood platelet count (count/volume) 167 10*3/uL 130-400 Automated blood platelet mean volume measurement 11.1 [foz_us] 7.4-10.4 Bacterial blood culture - 08/25/17 13:15 Bacterial blood culture NG NRG Bacterial blood culture - 08/25/17 13:25 Bacterial blood culture NG NRG Complete urinalysis with reflex to culture - 08/25/17 13:44 Urine color determination YELLOW NRG Urine clarity determination CLEAR NRG Urine pH measurement by test strip 6 5-9 Specific gravity of urine by test strip 1.010 1.016- 1.022 Urine protein assay by test strip, semi-quantitative NEGATIVE NEGATIVE Urine glucose detection by automated test strip NEGATIVE NEGATIVE Erythrocytes detection in urine sediment by light microscopy NEGATIVE NEGATIVE Urine ketones detection by automated test strip NEGATIVE NEGATIVE Urine nitrite detection by test strip NEGATIVE NEGATIVE Urine total bilirubin detection by test strip NEGATIVE NEGATIVE Urine urobilinogen measurement by automated test strip (mass/volume) NORMAL NORMAL Urine leukocyte esterase detection by dipstick 1+ NEGATIVE Automated urine sediment erythrocyte count by microscopy (number/high power field) NONE NRG Automated urine sediment leukocyte count by microscopy (number/high power field ) RARE NRG Bacteria detection in urine sediment by light microscopy NEGATIVE NRG Squamous epithelial cells detection in urine sediment by light microscopy RARE NRG Crystals detection in urine sediment by light microscopy NONE NRG Casts detection in urine sediment by light microscopy NONE NRG Mucus detection in urine sediment by light microscopy NEGATIVE NRG Complete urinalysis with reflex to culture NO NRG Sputum Gram stain - 08/25/17 14:05 GRAM STAIN SPUTUM AND MIXED BACTERIAL MENDEZ NRG Bacterial sputum culture - 08/25/17 14:05 Bacterial sputum culture NORMAL NRG Complete blood count (CBC) with automated white blood cell (WBC) differential - 08/26/17 09:45 Blood leukocytes automated count (number/volume) 6.4 10*3/uL 4.3-11.0 Blood erythrocytes automated count (number/volume) 3.72 10*6/uL 4.35-5.85 Venous blood hemoglobin measurement (mass/volume) 11.7 g/dL 13.3-17.7 Blood hematocrit (volume fraction) 35 % 40-54 Automated erythrocyte mean corpuscular volume 94 [foz_us] 80-99 Automated erythrocyte mean corpuscular hemoglobin (mass per erythrocyte) 32 pg 25-34 Automated erythrocyte mean corpuscular hemoglobin concentration measurement ( mass/volume) 34 g/dL 32-36 Automated erythrocyte distribution width ratio 13.0 % 10.0-14.5 Automated blood platelet count (count/volume) 163 10*3/uL 130-400 Automated blood platelet mean volume measurement 10.9 [foz_us] 7.4-10.4 Automated blood neutrophils/100 leukocytes 66 % 42-75 Automated blood lymphocytes/100 leukocytes 19 % 12-44 Blood monocytes/100 leukocytes 8 % 0-12 Automated blood eosinophils/100 leukocytes 6 % 0-10 Automated blood basophils/100 leukocytes 0 % 0-10 Blood neutrophils automated count (number/volume) 4.3 10*3 1.8-7.8 Blood lymphocytes automated count (number/volume) 1.2 10*3 1.0-4.0 Blood monocytes automated count (number/volume) 0.5 10*3 0.0-1.0 Automated eosinophil count 0.4 10*3/uL 0.0-0.3 Automated blood basophil count (count/volume) 0.0 10*3/uL 0.0-0.1 Comprehensive metabolic panel - 08/26/17 09:45 Serum or plasma sodium measurement (moles/volume) 143 mmol/L 135-145 Serum or plasma potassium measurement (moles/volume) 3.7 mmol/L 3.6-5.0 Serum or plasma chloride measurement (moles/volume) 108 mmol/L 98-107 Carbon dioxide 26 mmol/L 21-32 Serum or plasma anion gap determination (moles/volume) 9 mmol/L 5-14 Serum or plasma urea nitrogen measurement (mass/volume) 17 mg/dL 7-18 Serum or plasma creatinine measurement (mass/volume) 1.18 mg/dL 0.60-1.30 Serum or plasma urea nitrogen/creatinine mass ratio 14 NRG Serum or plasma creatinine measurement with calculation of estimated glomerular filtration rate 59 NRG Serum or plasma glucose measurement (mass/volume) 151 mg/dL 70-105 Serum or plasma calcium measurement (mass/volume) 8.5 mg/dL 8.5-10.1 Serum or plasma total bilirubin measurement (mass/volume) 0.2 mg/dL 0.1-1.0 Serum or plasma alkaline phosphatase measurement (enzymatic activity/volume) 79 U/L 40-136 Serum or plasma aspartate aminotransferase measurement (enzymatic activity/ volume) 32 U/L 5-34 Serum or plasma alanine aminotransferase measurement (enzymatic activity/volume ) 71 U/L 0-55 Serum or plasma protein measurement (mass/volume) 6.4 g/dL 6.4-8.2 Serum or plasma albumin measurement (mass/volume) 3.7 g/dL 3.2-4.5 Urine Legionella pneumophila antigen assay - 08/26/17 10:30 Urine Legionella pneumophila antigen assay Negative NRG Streptococcus pneumoniae antigen detection - 08/26/17 10:30 Streptococcus pneumoniae antigen detection Negative NRG Blood Urea Nitrogen - 10/11/18 14:32 BUN 23 mg/dL 5-25 Creatinine - 10/11/18 14:32 Creat 1.49 mg/dL 0.50-1.50 eGFR 45 mL/min/1.73m2 >59 Automated blood complete blood count (hemogram) panel - 11/03/18 11:20 Blood leukocytes automated count (number/volume) 4.6 10*3/uL 4.3-11.0 Blood erythrocytes automated count (number/volume) 3.65 10*6/uL 4.35-5.85 Venous blood hemoglobin measurement (mass/volume) 11.4 g/dL 13.3-17.7 Blood hematocrit (volume fraction) 35 % 40-54 Automated erythrocyte mean corpuscular volume 96 [foz_us] 80-99 Automated erythrocyte mean corpuscular hemoglobin (mass per erythrocyte) 31 pg 25-34 Automated erythrocyte mean corpuscular hemoglobin concentration measurement ( mass/volume) 33 g/dL 32-36 Automated erythrocyte distribution width ratio 13.3 % 10.0-14.5 Automated blood platelet count (count/volume) 171 10*3/uL 130-400 Automated blood platelet mean volume measurement 9.6 [foz_us] 7.4-10.4 Encounters ACCT No. Visit Date/Time Discharge Status Pt. Type Provider Facility Loc./Unit Complaint [id number] 10/26/2018 10:43:00 10/26/2018 23:59:59 CLS Outpatient FLOR BERUMEN [facility] ONC [id number] 10/24/2018 11:46:00 10/24/2018 23:59:59 CLS Outpatient CARLENE IBARRA DO [facility] RAD LESION OF LUMBAR SPINE, ABNORMAL MRI [id number] 10/17/2018 13:45:00 10/17/2018 23:59:59 CLS Outpatient DERECK CISNEROS [employer] [facility] RAD ALLERGIC RHINITIS [id number] 09/27/2018 09:56:00 09/27/2018 23:59:59 CLS Preadmit MARTIN MARIN MD [facility] 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 [id number] 09/22/2018 14:39:00 09/22/2018 23:59:59 CLS Outpatient EMANUEL ALEJANDRA [employer] [facility] RAD M54.5 [id number] 10/05/2017 13:02:00 10/05/2017 23:59:59 CLS Outpatient DERECK CISNEROS [employer] [facility] RAD J18.9 J45.909 J42 [id number] 08/25/2017 11:50:00 08/27/2017 11:00:00 DIS Inpatient RANJIT VELA DO [facility] 4TH PNEUMONIA [id number] 07/14/2017 14:34:00 07/14/2017 23:59:59 CLS Outpatient MARTIN MARIN MD [facility] RAD HX OF TIA [id number] 07/09/2017 10:36:00 07/09/2017 13:10:00 DIS Emergency DAVID LEHMAN [employer] [facility] ER DIZZINESS, TROUBLE WALKING [id number] 06/13/2017 14:06:00 06/13/2017 23:59:59 CLS Outpatient MARTIN MARIN MD [facility] RAD M79.604 M79.89 [id number] 03/08/2017 07:14:00 03/08/2017 16:30:00 DIS Outpatient KRUNAL VENEGAS MD [facility] SDC ENLARGED PROSTATE [id number] 03/03/2017 12:41:00 03/03/2017 14:37:00 DIS Outpatient KRUNAL VENEGAS MD [facility] PREOP ENLARGED PROSTATE [id number] 08/09/2016 14:01:00 08/09/2016 23:59:59 CLS Outpatient KRUNAL VENEGAS MD [facility] RAD HISTORY OF LT RENAL CELL CARCINOMA [id number] 12/07/2015 13:25:00 12/07/2015 15:56:00 DIS Emergency DAVID LEHMAN APRN [facility] ER DIFFICULTY URINATING [id number] 11/03/2015 17:54:00 11/03/2015 21:15:00 DIS Emergency JENI HAN DO [facility] ER NOT URINATING [id number] 10/27/2015 12:11:00 10/27/2015 23:59:59 CLS Outpatient MARTIN MARIN MD [facility] RAD CHRONIC LUMBAR SPINE PAIN [id number] 10/24/2015 11:36:00 10/24/2015 14:06:00 DIS Emergency ANA GONZALES MD [facility] ER BACK PAIN [id number] 07/03/2015 12:30:00 07/03/2015 23:59:59 CLS Outpatient MARTIN MARIN MD [facility] RAD LIVER MASS [id number] 06/27/2015 08:55:00 06/27/2015 23:59:59 CLS Outpatient KRUNAL VENEGAS MD [facility] RAD LEFT RENAL CA [id number] 10/24/2014 13:51:00 10/24/2014 23:59:59 CLS Outpatient MARTIN MARIN MD [facility] RAD HEADACHE,DIZZINESS,HEAD PRESSURE [id number] 10/24/2014 11:27:00 10/24/2014 23:59:59 CLS Outpatient MARTIN MARIN MD [facility] LAB PED PRESSURE, HEADACHE, DIZZINESS [id number] 01/08/2014 11:29:00 01/08/2014 23:59:59 CLS Outpatient CARLENE IBARRA DO [facility] RAD BRONCHITIS,COUGH, FOLLOW UP [id number] 12/27/2013 13:46:00 12/27/2013 23:59:59 CLS Outpatient CARLENE IBARRA DO [facility] RT BRONCHITIS, COUGH [id number] 11/22/2013 10:49:00 11/22/2013 23:59:59 CLS Outpatient CARLENE IBARRA DO [facility] RAD BRONCHITIS, COUGH [id number] 11/15/2013 16:44:00 11/15/2013 23:59:59 CLS Outpatient SOHA KINNEY, FERNANDO Harden [facility] LAB COUGH [id number] 11/12/2013 11:47:00 11/12/2013 23:59:59 CLS Outpatient TANIA KINNEY, MARTIN Arriaga [facility] RAD COUGH,FEVER [id number] 06/19/2013 10:21:00 06/19/2013 23:59:59 CLS Outpatient THEO KINNEY, KRUNAL Harden [facility] RAD LEFT RENAL CA [id number] 11/03/2018 10:56:00 ACT Outpatient FLOR BERUMEN [facility] RAD METASTATIC BONE TUMOR [id number] 12/22/2012 11:50:00 Document Registration [id number] 06/09/2012 10:28:00 Document Registration [id number] 12/14/2011 10:00:00 Document Registration [id number] 12/13/2011 10:00:00 Document Registration [id number] 10/29/2011 09:53:00 Document Registration [id number] 08/12/2011 09:33:00 Document Registration [id number] 07/14/2011 15:49:00 Document Registration [id number] 07/05/2011 08:52:00 Document Registration [id number] 06/29/2011 09:44:00 Document Registration [id number] 06/07/2011 13:41:00 Document Registration [id number] 05/19/2011 14:45:00 Document Registration [id number] 03/12/2011 10:53:00 Document Registration [id number] 03/04/2011 13:52:00 Document Registration [id number] 10/09/2010 10:53:00 Document Registration [id number] 10/08/2010 08:08:00 Document Registration [id number] 09/30/2010 09:30:00 Document Registration [id number] 09/28/2010 11:24:00 Document Registration [id number] 03/12/2017 17:27:00 Document Registration [id number] 10/11/2018 14:18:00 10/11/2018 23:59:00 DIS Outpatient EMANUEL ALEJANDRA [id number] 10/11/2018 00:00:00 10/11/2018 23:59:00 DIS Outpatient Steven Marin [id number] 08/24/2017 14:31:00 08/24/2017 16:03:00 [id number] 03/15/2017 12:05:00 03/15/2017 13:04:00 DIS Outpatient Dileep Ramires [id number] 03/12/2017 17:27:00 03/12/2017 19:39:00 DIS Outpatient Keyla [facility] ER [id number] 03/10/2017 11:55:00 03/10/2017 12:45:00 DIS Outpatient Krunal Venegas [id number] 08/24/2017 14:44:48 Document Registration [id number] 10/11/2018 00:00:00 Document Registration
[2018-11-03] MEDS: fentaNYL INJECTION 100 MCG/2 ML AMP IVP ONE (12:30)
[2018-11-03] MEDS: MIDAZOLAM 2 MG/2 ML (VERSED) VIAL IVP ONE (12:30)
[2018-11-03] MEDS: NS IV 1000 ML 1,000 ML IV STA (12:30)
[2018-11-03] MEDS: LIDOCAINE 1% INJ 20 ML 20 ML VIAL INJ ONE (12:31)
--- NOTE | 2018-11-03 12:52 | Pre-Op Note & Conscious Sedat ---
Pre-Operative Progress Note H&P Reviewed The H&P was reviewed, patient examined and no changes noted. Date H&P Reviewed: Nov 03, 2018 Time H&P Reviewed: 10:00 Pre-Op Diagnosis: Bone lesions Conscious Sedation Pre-Proced Time 10:00 ASA Score 2 For ASA 3 and 4: Consider anesthesia and medical clearance. Also, for patients with a history of failed moderate sedation consider anesthesia. Airway Lungs Heart ASA score ASA 1: a normal healthy patient ASA 2: a patient with a mild systemic disease (mid diabetes, controlled hypertension, obesity ASA 3: a patient with a severe systemic disease that limits activity (angina , COPD, prior Myocardial infarction) ASA 4: a patient with an incapacitating disease that is a constant threat to life (CHF, renal failure) ASA 5: a moribund patient not expected to survive 24 hrs. (ruptured aneurysm) ASA 6: a declared brain- patient whose organs are being harvested. For emergent operations, add the letter E after the classification Mallampati Classification Grade 2 Sedation Plan Analgesia, Amnesia, Plan communicated to team members, Discussed options with patient/fam, Discussed risks with patient/fam The patient is an appropriate candidate to undergo the planned procedure, sedation, and anesthesia. The patient immediately re-assessed prior to indication. RAJINDER URBAN MD Nov 03, 2018 12:52
[2018-11-03 13:15] LABS: ABSOLUTE RETIC # 36 10e9/L (24-90); BASOPHILS % (AUTO) 0 % (0-10); EOSINOPHILS # (AUTO) 0.3 10^3/uL (0.0-0.3); EOSINOPHILS % (AUTO) 5 % (0-10); HEMATOCRIT 35 % (40-54); HEMOGLOBIN 11.4 G/DL (13.3-17.7); LYMPHOCYTES # (AUTO) 1.8 X 10^3 (1.0-4.0); LYMPHOCYTES % (AUTO) 34 % (12-44); MEAN CORPUSCULAR HEMOGLOBIN 31 PG (25-34); MEAN CORPUSCULAR HGB CONC 33 G/DL (32-36); MEAN CORPUSCULAR VOLUME 96 FL (80-99); MEAN PLATELET VOLUME 10.1 FL (7.4-10.4); MONOCYTES # (AUTO) 0.3 X 10^3 (0.0-1.0); MONOCYTES % (AUTO) 7 % (0-12); NEUTROPHILS # (AUTO) 2.8 X 10^3 (1.8-7.8); NEUTROPHILS % (AUTO) 54 % (42-75); PLATELET COUNT 165 10^3/uL (130-400); RED CELL DISTRIBUTION WIDTH 13.3 % (10.0-14.5); RETICULOCYTE % 0.97 % (0.50-2.40); WHITE BLOOD COUNT 5.2 10^3/uL (4.3-11.0)
--- NOTE | 2018-11-03 13:21 | Diagnostic Imaging Report ---
INDICATION: Lytic bone lesions. Patient presents for CT-guided biopsy. TECHNIQUE: The patient was brought to the CT suite and placed on the table in the prone position. Axial imaging through the pelvis was performed to evaluate for an appropriate entry site. The posterior pelvis was prepped and draped in the usual sterile fashion. A small amount of 1% lidocaine was utilized for local anesthesia. A bone marrow biopsy needle was advanced and placed with its tip adjacent to the posterior cortex of the right iliac bone. The needle was advanced through the cortex with the bone marrow drill. Two bone marrow aspirates were obtained. Next, core biopsy of the right iliac bone was performed. Next, the bone marrow needle was repositioned along the posterior cortex of the right iliac bone. The needle was advanced with the biopsy drill. A second core biopsy through the right posterior iliac bone was performed in the region of multiple small lytic lesions. The needle was removed and hemostasis was obtained using manual compression. The patient tolerated the procedure well and left the Department in stable condition. The procedure was performed utilizing conscious sedation with Radiology nursing and constant patient monitoring. The patient received a total of 1 mg of Versed intravenously as well as 75 mcg of fentanyl intravenously. The total procedure time was 12 minutes. IMPRESSION: CT-guided right iliac bone core biopsy as well as bone marrow aspiration and biopsy utilizing conscious sedation. Dictated by: Dictated on workstation # [id number]
[2018-11-03 14:15] LABS: BAND NEUTROPHILS 0 %; LYMPHOCYTES % (MANUAL) 27 %; MONOCYTES % (MANUAL) 7 %; NEUTROPHILS % (MANUAL) 60 %
[2018-11-03 14:16] LABS: BASOPHILS % (MANUAL) 0 %; EOSINOPHILS % (MANUAL) 6 %; RBC MORPH NORMAL
[2018-11-03] MEDS: HYDROcodone/APAP 5 MG/325 MG (LORTAB) TAB PO PRN (15:43)
== END 2018-11-03 17:00 | disposition home or self-care (01) ==
LOC: RAD 10:56 → SDC 13:00 → RAD 17:00
PROVIDERS: ATTEND Internal Medicine Hematology & Oncology
DX: C79.51 Secondary malignant neoplasm of bone (principal); C80.1 Malignant (primary) neoplasm, unspecified; M89.9 Disorder of bone, unspecified; Z85.528 Personal history of other malignant neoplasm of kidney
CPT/HCPCS: 36415; 38222; 77012; 85007; 85025; 85027; 85045; 85610; 85730; 99156

== ENCOUNTER → 2018-11-27 | Outpatient (CLI) | payer MEDICARE, OTHER ==
[~2018-11-27] MED LIST changes: +AMIT25TA9 PO; +FAMO-119 PO; +TAMS0.4C98 PO
--- NOTE | 2018-11-27 16:36 | Diagnostic Imaging Report ---
INDICATION: Cough and multiple myeloma. TIME OF EXAM: 12:27 p.m. COMPARISON: Comparison is made with prior chest from 10/05/2017. FINDINGS: Heart size is stable. Nodular density in the left mid lung is stable. No infiltrates are seen. No effusion or pneumothorax is detected. IMPRESSION: Stable chest. No acute feature is detected. Dictated by: Dictated on workstation # [id number]
== END ==
LOC: RAD 11:38
PROVIDERS: ATTEND Nurse Practitioner Adult Health
DX: C90.00 Multiple myeloma not having achieved remission (principal); R05 Cough
CPT/HCPCS: 71046

== ENCOUNTER → 2018-12-01 | Outpatient (CLI) | payer MEDICARE, OTHER ==
--- NOTE | 2018-12-01 11:07 | Diagnostic Imaging Report ---
Indication: Fever of unknown origin PA and lateral chest Heart size and pulmonary vascular normal. Lungs are clear. There are no effusions or pneumothoraces. Impression: No acute abnormalities in the chest Dictated by: Dictated on workstation # [id number]
== END ==
LOC: RAD 10:42
PROVIDERS: ATTEND Internal Medicine Hematology & Oncology
DX: R50.9 Fever, unspecified (principal)
CPT/HCPCS: 71046

== ENCOUNTER → 2018-12-13 | Outpatient (CLI) | payer MEDICARE, OTHER ==
--- NOTE | 2018-12-13 13:09 | Diagnostic Imaging Report ---
INDICATION: Shortness of breath. TIME OF EXAM: 11:57 a.m. COMPARISON: Correlation is made with prior chest from 12/01/2018. FINDINGS: Heart size is stable. The lungs are hyperinflated consistent with COPD. There has been development of some consolidation in the medial aspect of the left lower lobe suggestive of pneumonia. The right lung is clear. There may be trace pleural fluid on the left as well. There is no pneumothorax. IMPRESSION: Development of some consolidation in the left lower lobe and trace left effusion when compared to examination from 12/01/2018. Dictated by: Dictated on workstation # [id number]
== END ==
LOC: RAD 11:34
PROVIDERS: ATTEND Nurse Practitioner Family
DX: C90.00 Multiple myeloma not having achieved remission (principal); J18.1 Lobar pneumonia, unspecified organism; J45.909 Unspecified asthma, uncomplicated; J42 Unspecified chronic bronchitis; G44.009 Cluster headache syndrome, unspecified, not intractable; Z85.528 Personal history of other malignant neoplasm of kidney
CPT/HCPCS: 36415; 71046; 83880

== ENCOUNTER 2018-12-19 12:50 | Outpatient (RCR) | payer MEDICARE, OTHER ==
[2018-10-26 10:25] LABS: BASOPHILS % (AUTO) 0 % (0-10); EOSINOPHILS # (AUTO) 0.6 10^3/uL (0.0-0.3); EOSINOPHILS % (AUTO) 11 % (0-10); HEMATOCRIT 36 % (40-54); HEMOGLOBIN 11.7 G/DL (13.3-17.7); LYMPHOCYTES # (AUTO) 1.6 X 10^3 (1.0-4.0); LYMPHOCYTES % (AUTO) 33 % (12-44); MEAN CORPUSCULAR HEMOGLOBIN 31 PG (25-34); MEAN CORPUSCULAR HGB CONC 33 G/DL (32-36); MEAN CORPUSCULAR VOLUME 95 FL (80-99); MEAN PLATELET VOLUME 9.8 FL (7.4-10.4); MONOCYTES # (AUTO) 0.3 X 10^3 (0.0-1.0); MONOCYTES % (AUTO) 6 % (0-12); NEUTROPHILS # (AUTO) 2.4 X 10^3 (1.8-7.8); NEUTROPHILS % (AUTO) 50 % (42-75); PLATELET COUNT 191 10^3/uL (130-400); WHITE BLOOD COUNT 4.9 10^3/uL (4.3-11.0)
[2018-10-26 10:50] LABS: ALBUMIN 4.2 GM/DL (3.2-4.5); BILIRUBIN,TOTAL 0.4 MG/DL (0.1-1.0); CALCIUM 10.8 MG/DL (8.5-10.1); CREATININE SERUM 1.33 MG/DL (0.60-1.30); POTASSIUM 3.7 MMOL/L (3.6-5.0)
[2018-10-26 11:04] LABS: BAND NEUTROPHILS 1 %; EOSINOPHILS % (MANUAL) 14 %; LYMPHOCYTES % (MANUAL) 24 %; MONOCYTES % (MANUAL) 4 %; NEUTROPHILS % (MANUAL) 47 %
[2018-10-26 11:05] LABS: BASOPHILS % (MANUAL) 2 %; POIKILOCYTOSIS SLIGHT; REACTIVE LYMPHOCYTES 8 %
[2018-10-26 11:06] LABS: ANISOCYTOSIS SLIGHT; ELLIPT/OVALOCYTES SLIGHT; ROULEAUX MOD
[2018-11-08 09:20] LABS: BASOPHILS % (AUTO) 0 % (0-10); EOSINOPHILS # (AUTO) 0.3 10^3/uL (0.0-0.3); EOSINOPHILS % (AUTO) 6 % (0-10); HEMATOCRIT 33 % (40-54); HEMOGLOBIN 10.6 G/DL (13.3-17.7); LYMPHOCYTES # (AUTO) 1.6 X 10^3 (1.0-4.0); LYMPHOCYTES % (AUTO) 33 % (12-44); MEAN CORPUSCULAR HEMOGLOBIN 32 PG (25-34); MEAN CORPUSCULAR HGB CONC 33 G/DL (32-36); MEAN CORPUSCULAR VOLUME 97 FL (80-99); MONOCYTES # (AUTO) 0.3 X 10^3 (0.0-1.0); MONOCYTES % (AUTO) 6 % (0-12); NEUTROPHILS # (AUTO) 2.6 X 10^3 (1.8-7.8); NEUTROPHILS % (AUTO) 55 % (42-75); PLATELET COUNT 168 10^3/uL (130-400); RED CELL DISTRIBUTION WIDTH 13.2 % (10.0-14.5); WHITE BLOOD COUNT 4.7 10^3/uL (4.3-11.0)
[2018-11-08 09:48] LABS: ALBUMIN 3.8 GM/DL (3.2-4.5); BILIRUBIN,TOTAL 0.3 MG/DL (0.1-1.0); CALCIUM 11.3 MG/DL (8.5-10.1); CREATININE SERUM 1.39 MG/DL (0.60-1.30); POTASSIUM 3.9 MMOL/L (3.6-5.0); TOTAL PROTEIN 7.3 GM/DL (6.4-8.2)
[2018-11-14 08:52] LABS: IMMUNOFIX PATH REPORT NUMBER Complete (Complete)
[2018-11-27 11:56] LABS: BASOPHILS % (AUTO) 0 % (0-10); EOSINOPHILS # (AUTO) 0.1 10^3/uL (0.0-0.3); EOSINOPHILS % (AUTO) 2 % (0-10); HEMATOCRIT 35 % (40-54); HEMOGLOBIN 11.5 G/DL (13.3-17.7); LYMPHOCYTES # (AUTO) 1.6 X 10^3 (1.0-4.0); LYMPHOCYTES % (AUTO) 17 % (12-44); MEAN CORPUSCULAR HEMOGLOBIN 32 PG (25-34); MEAN CORPUSCULAR HGB CONC 33 G/DL (32-36); MEAN CORPUSCULAR VOLUME 97 FL (80-99); MONOCYTES # (AUTO) 0.5 X 10^3 (0.0-1.0); MONOCYTES % (AUTO) 5 % (0-12); NEUTROPHILS # (AUTO) 6.9 X 10^3 (1.8-7.8); NEUTROPHILS % (AUTO) 76 % (42-75); PLATELET COUNT 196 10^3/uL (130-400); RED CELL DISTRIBUTION WIDTH 14.8 % (10.0-14.5); WHITE BLOOD COUNT 9.1 10^3/uL (4.3-11.0)
[2018-11-27 12:15] LABS: ALBUMIN 3.7 GM/DL (3.2-4.5); BILIRUBIN,TOTAL 0.3 MG/DL (0.1-1.0); CALCIUM 8.7 MG/DL (8.5-10.1); CREATININE SERUM 1.17 MG/DL (0.60-1.30); POTASSIUM 3.6 MMOL/L (3.6-5.0); TOTAL PROTEIN 6.9 GM/DL (6.4-8.2)
[2018-12-01 10:02] LABS: BASOPHILS % (AUTO) 0 % (0-10); EOSINOPHILS # (AUTO) 0.1 10^3/uL (0.0-0.3); EOSINOPHILS % (AUTO) 3 % (0-10); HEMATOCRIT 34 % (40-54); LYMPHOCYTES # (AUTO) 0.4 X 10^3 (1.0-4.0); LYMPHOCYTES % (AUTO) 9 % (12-44); MEAN CORPUSCULAR HEMOGLOBIN 32 PG (25-34); MEAN CORPUSCULAR HGB CONC 33 G/DL (32-36); MEAN CORPUSCULAR VOLUME 98 FL (80-99); MEAN PLATELET VOLUME 9.7 FL (7.4-10.4); MONOCYTES # (AUTO) 0.2 X 10^3 (0.0-1.0); MONOCYTES % (AUTO) 3 % (0-12); NEUTROPHILS # (AUTO) 3.8 X 10^3 (1.8-7.8); NEUTROPHILS % (AUTO) 85 % (42-75); PLATELET COUNT 120 10^3/uL (130-400); RED CELL DISTRIBUTION WIDTH 14.9 % (10.0-14.5); WHITE BLOOD COUNT 4.4 10^3/uL (4.3-11.0)
[2018-12-01 10:24] LABS: ALBUMIN 3.4 GM/DL (3.2-4.5); BILIRUBIN,TOTAL 0.7 MG/DL (0.1-1.0); CALCIUM 7.9 MG/DL (8.5-10.1); CREATININE SERUM 1.22 MG/DL (0.60-1.30); POTASSIUM 4.3 MMOL/L (3.6-5.0); TOTAL PROTEIN 5.8 GM/DL (6.4-8.2)
[2018-12-01 10:52] LABS: BILIRUBIN,URINE NEGATIVE (NEGATIVE); CLARITY,URINE CLEAR; COLOR,URINE YELLOW; GLUCOSE, URINE (UA) NEGATIVE (NEGATIVE); KETONES,URINE NEGATIVE (NEGATIVE); LEUKOCYTE ESTERASE ,URINE NEGATIVE (NEGATIVE); NITRITE,URINE NEGATIVE (NEGATIVE); PH,URINE 6.5 (5-9); PROTEIN,URINE NEGATIVE (NEGATIVE); UROBILINOGEN,URINE NORMAL (NORMAL)
[2018-12-01 11:10] LABS: BACTERIA,URINE NEGATIVE /HPF
--- NOTE | 2018-12-01 20:49 | CONSULTATION REPORT ---
DATE OF SERVICE: ATTENDING PHYSICIAN: Dr. Alvarenga SUMMARY: I was asked by Dr. Alvarenga to see the patient, a mutual patient, for inability to catheterize because of urinary retention and a large amount of retention in the bladder by a bladder scan. The patient is an established patient of mine on whom I had done previously a UroLift for BPH. He is taking Flomax daily. He has been doing well, voiding well except for the past 2 days he started to have dribbling and difficult urination, until today he was unable to void at all. This has already started after his initiation of radiation and chemotherapy for his newly discovered cancer. On physical exam, the bladder is indeed distended. After trying a coude, I tried a straight catheter. I was finally able to pass the catheter all the way to the bladder and drained close to 1000 mL of clear urine. There was no bleeding. I inflated the balloon to 10 mL and connected the bag to gravity. IMPRESSION: Urinary retention with a difficult catheterization. RECOMMENDATIONS: 1. Leave the catheter in connected to a leg bag and give instructions to the family. 2. Increase the Flomax to twice a day. 3. Come to my office on Tuesday at 3:00 p.m. We will plan to take the Lopez catheter and do a cystoscopy on him either that day or later on. The plan was fully explained to him and his family. Job ID: [id number] DocumentID: [id number] Dictated Date: 12/01/2018 15:23:54 Machine Room Operator Date: 12/01/2018 18:33:12 Dictated By: KRUNAL VENEGAS MD
[2018-12-11 15:47] LABS: BASOPHILS % (AUTO) 0 % (0-10); EOSINOPHILS # (AUTO) 0.1 10^3/uL (0.0-0.3); EOSINOPHILS % (AUTO) 1 % (0-10); HEMATOCRIT 34 % (40-54); HEMOGLOBIN 10.9 G/DL (13.3-17.7); LYMPHOCYTES # (AUTO) 0.2 X 10^3 (1.0-4.0); LYMPHOCYTES % (AUTO) 5 % (12-44); MEAN CORPUSCULAR HEMOGLOBIN 32 PG (25-34); MEAN CORPUSCULAR HGB CONC 33 G/DL (32-36); MEAN CORPUSCULAR VOLUME 98 FL (80-99); MONOCYTES # (AUTO) 0.1 X 10^3 (0.0-1.0); MONOCYTES % (AUTO) 3 % (0-12); NEUTROPHILS # (AUTO) 3.7 X 10^3 (1.8-7.8); NEUTROPHILS % (AUTO) 91 % (42-75); PLATELET COUNT 158 10^3/uL (130-400); RED CELL DISTRIBUTION WIDTH 14.9 % (10.0-14.5)
[2018-12-11 16:10] LABS: CALCIUM 7.4 MG/DL (8.5-10.1); CREATININE SERUM 1.15 MG/DL (0.60-1.30); POTASSIUM 4.2 MMOL/L (3.6-5.0)
[~2018-12-19] VITALS: Ht 170.2 cm; Wt 69.4 kg
[~2018-12-19 12:50] MED LIST changes: +BORTEZOMIB 3.5 MG VELCADE SC SCH; +GLYCERIN ADULT SUPPOSITORY PR PRN; +NS IV 1000 ML (CANCER CTR) 1,000 ML ONE; +NS IV 500 ML (CANCER CENTER) IV SCH; +ZOLEDRONIC ACID (CANCER CTR) 3 MG in NS (IVPB) CANCER CENTER 100 ML IV SCH
[2018-12-19 13:25] LABS: BASOPHILS % (AUTO) 1 % (0-10); EOSINOPHILS # (AUTO) 0.2 10^3/uL (0.0-0.3); EOSINOPHILS % (AUTO) 3 % (0-10); HEMATOCRIT 31 % (40-54); LYMPHOCYTES # (AUTO) 0.5 X 10^3 (1.0-4.0); LYMPHOCYTES % (AUTO) 10 % (12-44); MEAN CORPUSCULAR HEMOGLOBIN 32 PG (25-34); MEAN CORPUSCULAR HGB CONC 33 G/DL (32-36); MEAN CORPUSCULAR VOLUME 98 FL (80-99); MEAN PLATELET VOLUME 9.6 FL (7.4-10.4); MONOCYTES # (AUTO) 0.2 X 10^3 (0.0-1.0); MONOCYTES % (AUTO) 5 % (0-12); NEUTROPHILS % (AUTO) 82 % (42-75); PLATELET COUNT 183 10^3/uL (130-400); RED CELL DISTRIBUTION WIDTH 14.6 % (10.0-14.5); WHITE BLOOD COUNT 4.8 10^3/uL (4.3-11.0)
[2018-12-19 13:52] LABS: ALANINE AMINOTRANSFERASE 39 U/L (0-55); ALBUMIN 3.4 GM/DL (3.2-4.5); ALKALINE PHOSPHATASE 93 U/L (40-136); BILIRUBIN,TOTAL 0.3 MG/DL (0.1-1.0); BUN/CREATININE RATIO 15; CALCIUM 9.1 MG/DL (8.5-10.1); CARBON DIOXIDE 27 MMOL/L (21-32); CHLORIDE 105 MMOL/L (98-107); CREATININE SERUM 1.14 MG/DL (0.60-1.30); GFR ESTIMATED > 60; GLUCOSE 129 MG/DL (70-105); POTASSIUM 3.8 MMOL/L (3.6-5.0); SODIUM 143 MMOL/L (135-145); TOTAL PROTEIN 6.3 GM/DL (6.4-8.2)
[2018-12-22 06:53] LABS: IMMUNOFIX PATH REPORT NUMBER Complete (Complete)
[2018-12-27] MEDS ORDERED: LENA15CA (10:49)
[2018-12-27] MEDS ORDERED: ALBU2.5V4 NEB (10:49)
[2018-12-27] MEDS ORDERED: BORT3.5V SC (10:49)
[2018-12-27] MEDS ORDERED: ONDA8TAB12 PO (10:49)
[2018-12-27] MEDS ORDERED: HYDR-3812 PO (11:20)
[2018-12-27] MEDS ORDERED: DEXA4TAB66 PO (11:20)
[2018-12-27] MEDS ORDERED: RT-ALBUINH INH (11:20)
== END 2019-01-24 | disposition home or self-care (01) ==
LOC: ONC 12:50
PROVIDERS: ATTEND Internal Medicine Hematology & Oncology
DX: M89.9 Disorder of bone, unspecified (principal); Z85.528 Personal history of other malignant neoplasm of kidney; I10 Essential (primary) hypertension; J44.9 Chronic obstructive pulmonary disease, unspecified; Z87.891 Personal history of nicotine dependence; Z90.5 Acquired absence of kidney; Z79.899 Other long term (current) drug therapy; R50.9 Fever, unspecified; C90.00 Multiple myeloma not having achieved remission; R05 Cough
CPT/HCPCS: 36415; 71046; 77295; 77300; 77334; 77336; 77417; 77470; 80048; 80053; 81000; 82232; 82570; 82784; 83615; 83883; 84155; 84156; 84165; 84166; 85007; 85025; 85027; 86334; 87804; 96360; 96361; 96365; 96401; 99204; 99214

== ENCOUNTER → 2018-12-22 | Outpatient (CLI) | payer MEDICARE, OTHER ==
[~2018-12-22] MED LIST changes: -BORTEZOMIB 3.5 MG VELCADE SC SCH; -GLYCERIN ADULT SUPPOSITORY PR PRN; -NS IV 1000 ML (CANCER CTR) 1,000 ML ONE; -NS IV 500 ML (CANCER CENTER) IV SCH; -ZOLEDRONIC ACID (CANCER CTR) 3 MG in NS (IVPB) CANCER CENTER 100 ML IV SCH
== END ==
LOC: CARD 11:42
PROVIDERS: ATTEND Nurse Practitioner Family
DX: R42 Dizziness and giddiness (principal); G44.009 Cluster headache syndrome, unspecified, not intractable; R91.8 Other nonspecific abnormal finding of lung field; J45.909 Unspecified asthma, uncomplicated; J42 Unspecified chronic bronchitis; J18.9 Pneumonia, unspecified organism; C90.00 Multiple myeloma not having achieved remission; Z85.528 Personal history of other malignant neoplasm of kidney; I34.0 Nonrheumatic mitral (valve) insufficiency
CPT/HCPCS: 93306

== ENCOUNTER 2018-12-26 18:17 | Inpatient (IN) | payer MEDICARE, OTHER ==
[~2018-12-26] VITALS: Ht 180.3 cm; Wt 68.7 kg
[2018-12-26] MEDS ORDERED: NS IV ONE (18:30)
[2018-12-26] MEDS ORDERED: DEXAMETHASONE 4 MG/ML SDV (DECADRON) IH ONE ×2 (18:30→19:15)
[2018-12-26] MEDS ORDERED: RT-ALBUTEROL/IPRATROPIUM 3 ML (DUONEB) VIAL INH ONE (18:30)
[2018-12-26] MEDS ORDERED: CEFEPIME INJECTION 1,000 MG in WATER (STERILE) FOR INJECTION 10 ML IV ONE (18:30)
[2018-12-26] MEDS ORDERED: methylPREDNISolone 125 MG (Solu-MEDROL) VIAL IV STA (18:30)
[2018-12-26 18:53] VITALS: BP 150/70
--- NOTE | 2018-12-26 19:00 | ED Respiratory ---
General Chief Complaint: Cough/Cold/Flu Symptoms Stated Complaint: FEVER / SOA Nursing Triage Note: THE PT ARRIVAL BY POV, WITH FAMILY. NO DISTRESS IS SEEN ON ARRIVAL. LOC IS [facility] FOR THE PT. THE PT STATES THAT THERE IS PAIN WITH A DEEP INSPIRATION. Source: patient, family (, DAUGHTER) History of Present Illness Date Seen by Provider: Dec 26, 2018 Time Seen by Provider: 18:22 Initial Comments PT ARRIVES VIA POV FROM HOME PT HAS BEEN SICK SINCE 0400 THIS AM HAS HAD NON-PRODUCTIVE COUGH--"CAN'T TALK" DUE TO COUGHING C/O SHORTNESS OF BREATH PT HAS ASTHMA AND HAS HAD ALBUTEROL NEB TREATMENTS X 4 TODAY, WITHOUT RELIEF CHEST HURTS ONLY WHEN HE TAKES A DEEP BREATH OR COUGHS HARD PT HAS HAD FEVER OF 101.8. 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 IBARRA, DR. BERUMEN AND DR. VENEGAS SINCE HE WAS DISMISSED. PCP: DR. MARIN TAKE AWAY ATTENDANT: DR. IBARRA Allergies and Home Medications Allergies Coded Allergies: carisoprodol (Verified Allergy, Intermediate, SHAKING, AGITATION, 08/25/17 ) Home Medications Amitriptyline HCl 25 Mg Tablet, 25 MG PO HS, (Reported) Amlodipine Besylate 5 Mg Tablet, 5 MG PO DAILY, (Reported) Cetirizine HCl 10 Mg Tablet, 10 MG PO DAILY, (Reported) Clonidine HCl 0.1 Mg Tablet, 0.1 MG PO DAILY, (Reported) Dulaglutide 0.75 Mg/0.5 Ml Pen.injctr, 0.75 MG SQ Sa, (Reported) Famotidine 20 Mg Tablet, 20 MG PO DAILY, (Reported) Hydrochlorothiazide 25 Mg Tablet, 25 MG PO DAILY, (Reported) Metformin HCl 500 Mg Tablet, 500 MG PO BID, (Reported) Mometasone/Formoterol 13 Gm Hfa.aer.ad, 1 PUFF INH BID, (Reported) Montelukast Sodium 10 Mg Tablet, 10 MG PO HS, (Reported) Tamsulosin HCl 0.4 Mg Cap, 0.4 MG PO DAILY, (Reported) Zolpidem Tartrate 10 Mg Tablet, 10 MG PO HS, (Reported) Patient Home Medication List Home Medication List Reviewed: Yes Review of Systems Review of Systems Constitutional: fever, malaise, weakness EENTM: see HPI Respiratory: see HPI, cough; No phlegm; short of breath Cardiovascular: see HPI Gastrointestinal: diarrhea (A LITTLE X 1 THIS AM), loss of appetite, other ( DRINKING WATER ALL DAY) Genitourinary: other (ONGOING PROBLEMS WITH PROSTATE) Musculoskeletal: no symptoms reported Skin: no symptoms reported Psychiatric/Neurological: No Symptoms Reported Hematologic/Lymphatic: See HPI Immunological/Allergic: see HPI Past Lnormjv-Bdfzkx-Ccwmeu Hx Patient Social History Alcohol Use: Denies Use Recreational Drug Use: No Smoking Status: Former Smoker Type Used: Cigarettes Former Smoker, Quit: Aug 25, 1981 2nd Hand Smoke Exposure: No Recent Foreign Travel: No Contact w/Someone Who Travel: No Recent Infectious Disease Expo: No Recent Hopitalizations: No Physical Abuse: No Sexual Abuse: No Mistreated: No Fear: No Immunizations Up To Date PED Vaccines UTD: No Date of Pneumonia Vaccine: Jun 23, 2015 Date of Influenza Vaccine: Jul 20, 2017 Seasonal Allergies Seasonal Allergies: Yes Past Medical History Surgeries: Yes (LAMINECTOMY, KIDNEY LEFT REMOVAL, UROFIFT) Bladder Surgery, Nephrectomy, Orthopedic Respiratory: Yes Asthma, Pneumonia, Chronic Bronchitis Currently Using CPAP: No Currently Using BIPAP: No Cardiac: Yes High Cholesterol, Hypertension Neurological: Yes (TREMORS) Reproductive Disorders: No Sexually Transmitted Disease: No HIV/AIDS: No Genitourinary: Yes Benign Prostatic Hyperpl, Prostate Problems Gastrointestinal: Yes Gastroesophageal Reflux Musculoskeletal: Yes (LEG/FOOT PAIN) Arthritis, Chronic Back Pain Endocrine: Yes Diabetes, Non-Insulin dep HEENT: Yes Loss of Vision: Denies Hearing Impairment: Bilateral Hearing Aide Cancer: Yes (LEFT KIDNEY REMOVED 2010; MULTIPLE MYELOMA) Kidney Did You Recieve Any Treatments: Yes (SURGERY FOR RENAL CANCER 2010; CURRENTLY ON INJECTIONS AND ORAL CHEMO FOR MULTIPLE MYELOMA) What Type of Treatment Did You: Chemotherapy, Surgical Intervention Psychosocial: No Integumentary: No Blood Disorders: No Adverse Reaction/Blood Tranf: No (N/A) Family Medical History Cardiovascular disease 19 MOTHER G8 BROTHER G8 BROTHER Coronary thrombosis 19 MOTHER G8 SISTER G8 SISTER Hypertension 19 MOTHER No Pertinent Family Hx Physical Exam Vital Signs - First Documented 12/26/18 12/26/18 12/26/18 18:31 18:52 18:58 Temp 102.8 Pulse 110 Resp 20 B/P (MAP) 150/70 (96) Pulse Ox 98 O2 Delivery Nasal Cannula O2 Flow Rate 2.00 Capillary Refill : Less Than 3 Seconds Height: 5'11.00" Weight: 170lbs. 7.0oz. 77.824135nq; 25.8 BMI Method:Estimated General Appearance: WD/WN, other (MILDLY DYSPNEIC ON ARRIVAL. GENERALIZED WEAKNES) Neck: normal inspection Respiratory: decreased breath sounds (DECREASED AERATION IN ALL LUNG COLEMAN. ) , accessory muscle use (MILDLY DYSPNEIC); No crackles, No rales, No rhonchi, No wheezing; other (MILDLY DYSPNEIC. ) Cardiovascular: no edema, no murmur, tachycardia Gastrointestinal: normal bowel sounds, non tender, soft Extremities: normal inspection, no pedal edema, normal capillary refill Neurologic/Psychiatric: rectification printer II-XII nml as tested, no motor/sensory deficits, alert, normal mood/affect, oriented x 3, other (GENERALIZED TREMORS) Skin: normal color, warm/dry Focused Exam Lactate Level 12/26/18 18:58: Lactic Acid Level 1.60 Lactic Acid Level Laboratory Tests Test 12/26/18 18:58 Lactic Acid Level 1.60 MMOL/L (0.50-2.00) Progress/Results/Core Measures Suspected Sepsis Recent Fever Within 48 Hours: Yes Infection Criteria Present: Suspected New Infection New/Unexplained Altered Menta: No Sepsis Screen: Possible Sepsis Risk SIRS Temperature:102.8 Pulse: 110 Respiratory Rate: 20 Laboratory Tests 12/26/18 18:58: White Blood Count 5.1 Blood Pressure 150 /70 Mean: 96 12/26/18 18:58: Lactic Acid Level 1.60 Laboratory Tests 12/26/18 18:58: Creatinine 1.10, INR Comment 1.0, Platelet Count 174, Total Bilirubin 0.4 Results/Orders Lab Results Laboratory Tests Test 12/26/18 18:58 12/26/18 19:54 Range/Units White Blood Count 5.1 4.3-11.0 10^3/uL Red Blood Count 3.24 L 4.35-5.85 10^6/uL Hemoglobin 10.2 L 13.3-17.7 G/DL Hematocrit 31 L 40-54 % Mean Corpuscular Volume 96 80-99 FL Mean Corpuscular Hemoglobin 31 25-34 PG Mean Corpuscular Hemoglobin Concent 33 32-36 G/DL Red Cell Distribution Width 14.8 H 10.0-14.5 % Platelet Count 174 130-400 10^3/uL Mean Platelet Volume 10.3 7.4-10.4 FL Neutrophils (%) (Auto) 77 H 42-75 % Lymphocytes (%) (Auto) 9 L 12-44 % Monocytes (%) (Auto) 7 0-12 % Eosinophils (%) (Auto) 6 0-10 % Basophils (%) (Auto) 0 0-10 % Neutrophils # (Auto) 3.9 1.8-7.8 X 10^3 Lymphocytes # (Auto) 0.5 L 1.0-4.0 X 10^3 Monocytes # (Auto) 0.4 0.0-1.0 X 10^3 Eosinophils # (Auto) 0.3 0.0-0.3 10^3/uL Basophils # (Auto) 0.0 0.0-0.1 10^3/uL Prothrombin Time 13.6 12.2-14.7 SEC INR Comment 1.0 0.8-1.4 Activated Partial Thromboplast Time 30 24-35 SEC Sodium Level 136 135-145 MMOL/L Potassium Level 4.2 3.6-5.0 MMOL/L Chloride Level 102 98-107 MMOL/L Carbon Dioxide Level 24 21-32 MMOL/L Anion Gap 10 5-14 MMOL/L Blood Urea Nitrogen 13 7-18 MG/DL Creatinine 1.10 0.60-1.30 MG/DL Estimat Glomerular Filtration Rate > 60 BUN/Creatinine Ratio 12 Glucose Level 144 H 70-105 MG/DL Lactic Acid Level 1.60 0.50-2.00 MMOL/L Calcium Level 8.5 8.5-10.1 MG/DL Corrected Calcium 8.9 8.5-10.1 MG/DL Magnesium Level 1.9 1.8-2.4 MG/DL Total Bilirubin 0.4 0.1-1.0 MG/DL Aspartate Amino Transf (AST/SGOT) 13 5-34 U/L Alanine Aminotransferase (ALT/SGPT) 30 0-55 U/L Alkaline Phosphatase 101 40-136 U/L B-Type Natriuretic Peptide 12.7 <100.0 PG/ML Total Protein 5.7 L 6.4-8.2 GM/DL Albumin 3.5 3.2-4.5 GM/DL Procalcitonin 0.17 H <0.10 NG/ML Blood Gas Puncture Site RIGHT RADIAL Blood Gas Patient Temperature 102.8 Arterial Blood pH 7.41 7.37-7.43 Arterial Blood Partial Pressure CO2 39 35-45 MMHG Arterial Blood Partial Pressure O2 112 H 79-93 MMHG Arterial Blood HCO3 23 23-27 MMOL/L Arterial Blood Total CO2 24.3 21.0-31.0 MMOL/L Arterial Blood Oxygen Saturation 97 94-100 % Arterial Blood Base Excess -0.4 -2.5-2.5 MMOL/L Beto Test POSITIVE Blood Gas Ventilator Setting NO Blood Gas Inspired Oxygen 3L Micro Results Microbiology 12/26/18 Influenza Types A,B Antigen (CHARMAINE) - Final, Complete My Orders Orders - TRACY CR DO Albuterol/Ipra Inhalation Soln (Duoneb I (12/26/18 18:30) Dexamethasone Injection (Decadron Inject (12/26/18 18:30) Rt Request For Service (12/26/18 18:30) Methylprednisolone Sod Succ (Solu-Medrol (12/26/18 18:30) Chest 1 View, Ap/Pa Only (12/26/18 18:30) Cbc With Automated Diff (12/26/18 18:30) Comprehensive Metabolic Panel (12/26/18 18:30) Blood Culture (12/26/18 18:30) Sputum Culture (12/26/18 18:30) Urinalysis (12/26/18 18:30) Urine Culture (12/26/18 18:30) Protime With Inr (12/26/18:30) Partial Thromboplastin Time (12/26/18 18:30) Ed Iv/Invasive Line Start (12/26/18 18:30) Ed Iv/Invasive Line Start (12/26/18 18:30) Ekg Tracing (12/26/18 18:30) Vital Signs Adult Sepsis Patie Q15M (12/26/18 18:30) O2 (12/26/18 18:30) Remove Rings In Anticipation O (12/26/18 18:30) Lactic Acid Analyzer (12/26/18 18:30) Influenza A And B Antigens (12/26/18 18:30) Ns Iv 1000 Ml (Sodium Chloride 0.9%) (12/26/18 18:30) Cefepime Injection (Maxipime Injection) (12/26/18 18:30) Svn Small Volume Nebulizer (12/26/18 18:30) Svn Small Volume Nebulizer (12/26/18 18:30) BNP (12/26/18 19:00) Magnesium (12/26/18 19:00) Dexamethasone Injection (Decadron Inject (12/26/18 19:15) Medications Given in ED Vital Signs/I&O 12/26/18 12/26/18 12/26/18 12/26/18 18:31 18:52 18:53 18:58 Temp 102.8 102.8 Pulse 110 110 Resp 20 18 B/P (MAP) 150/70 (96) 150/70 (96) Pulse Ox 98 O2 Delivery Nasal Cannula Nasal Cannula O2 Flow Rate 2.00 3.00 Capillary Refill : Less Than 3 Seconds Blood Pressure Mean: 96 Progress Note : Progress Note PT FEELS BETTER AT TIME OF ADMIT O2 SATS UP WITH O2 AND NEB TREATMENT PT WITH INCREASED AERATION AND LESS DYSPNEIC AT TIME OF ADMIT NO DETERIORATION IN PT'S CONDITION DURING ER STAY ECG Initial ECG Impression Date: Dec 26, 2018 Initial ECG Impression Time: 20:22 Initial ECG Rate: 97 Initial ECG Rhythm: Normal Sinus Diagnostic Imaging Comments CXR--LEFT PERIHILAR INFILTRATE, PER RADIOLOGIST REPORT AT 1950 Reviewed: Reviewed by Me Departure Communication (Admissions) 1950--SPOKE WITH DR. BERUMEN, WILL SEE PT IN CONSULT--ADVISES ZOSYN AND VANCOMYCIN 1955--SPOKE WITH DR. MOSELEY, HOSPITALIST, ACCEPTS PT FOR ADMIT. AGREES WITH ABOVE PLAN OF CARE Impression Primary Impression: Pneumonia Additional Impressions: Hypoxia MULTIPLE MYELOMA ON CHEMOTHERAPY Disposition: ADMITTED INPATIENT Condition: Improved Admissions Decision to Admit Reason: Admit from ER (General) Decision to Admit/Date: Dec 26, 2018 Time/Decision to Admit Time: 19:55 Departure-Patient Inst. Referrals: MARTIN MARIN MD (PCP/Family) Primary Care Physician TRACY CR DO Dec 26, 2018 19:00
[2018-12-26 19:19] LABS: BASOPHILS % (AUTO) 0 % (0-10); EOSINOPHILS # (AUTO) 0.3 10^3/uL (0.0-0.3); EOSINOPHILS % (AUTO) 6 % (0-10); HEMATOCRIT 31 % (40-54); HEMOGLOBIN 10.2 G/DL (13.3-17.7); LYMPHOCYTES # (AUTO) 0.5 X 10^3 (1.0-4.0); LYMPHOCYTES % (AUTO) 9 % (12-44); MEAN CORPUSCULAR HGB CONC 33 G/DL (32-36); MEAN CORPUSCULAR VOLUME 96 FL (80-99); MEAN PLATELET VOLUME 10.3 FL (7.4-10.4); MONOCYTES # (AUTO) 0.4 X 10^3 (0.0-1.0); MONOCYTES % (AUTO) 7 % (0-12); NEUTROPHILS # (AUTO) 3.9 X 10^3 (1.8-7.8); NEUTROPHILS % (AUTO) 77 % (42-75); PLATELET COUNT 174 10^3/uL (130-400); RED CELL DISTRIBUTION WIDTH 14.8 % (10.0-14.5); WHITE BLOOD COUNT 5.1 10^3/uL (4.3-11.0)
[2018-12-26 19:24] LABS: MEAN CORPUSCULAR HEMOGLOBIN 31 PG (25-34)
[2018-12-26 19:34] LABS: PROTHROMBIN TIME PATIENT 13.6 SEC (12.2-14.7)
--- NOTE | 2018-12-26 19:37 | Diagnostic Imaging Report ---
INDICATION: Fever. TIME OF EXAM: 07:15 p.m. COMPARISON: Correlation is made with prior study from 12/13/2018. FINDINGS: There is some mild infiltrate in the left perihilar region. Otherwise, lungs are clear. No significant effusion or pneumothorax is seen. IMPRESSION: Minimal left perihilar infiltrate. Dictated by: Dictated on workstation # [id number]
--- OUTSIDE RECORDS SUMMARY | 2018-12-26 19:44 | XMS REPORT | Clinical Summary ---
Author Author [facility] Organization [facility] Address Unknown Phone Unavailable Care Team Providers Care Delivery Merchandiser Name Role Phone Liliana Moses Unavailable Mihai Howard PCP Juan F Fernandes MD Unavailable Source Comments Some departments are not documenting in the electronic medical record. If you do not see the information that you expected, contact Release of Information in the Health Information Management department at [phone] for further assistance in locating additional records.[facility] Allergies Comments Active Allergy Reactions Severity Noted [...] (1 of 2 - PCV13) INFLUENZA VACCINE 04/12/2019 Results Not on filefrom Last 3 Months Advance Directives For more information, please contact: [facility] [address] [place] [address] Date Inactivated Comments Code Status Date Activated 12/19/2010 1:26 PM Full Code 12/17/2010 2:58 PM Provider has discussed Code Status Yes w/Patient or Family?
[2018-12-26 19:45] LABS: ALANINE AMINOTRANSFERASE 30 U/L (0-55); ALBUMIN 3.5 GM/DL (3.2-4.5); ALKALINE PHOSPHATASE 101 U/L (40-136); BILIRUBIN,TOTAL 0.4 MG/DL (0.1-1.0); BUN/CREATININE RATIO 12; CALCIUM 8.5 MG/DL (8.5-10.1); CARBON DIOXIDE 24 MMOL/L (21-32); CHLORIDE 102 MMOL/L (98-107); GFR ESTIMATED > 60; GLUCOSE 144 MG/DL (70-105); MAGNESIUM 1.9 MG/DL (1.8-2.4); POTASSIUM 4.2 MMOL/L (3.6-5.0); SODIUM 136 MMOL/L (135-145); TOTAL PROTEIN 5.7 GM/DL (6.4-8.2)
--- OUTSIDE RECORDS SUMMARY | 2018-12-26 19:47 | XMS REPORT | Continuity of Care Document ---
Author Organization Unknown Address Unknown Allergies Active Description Code Type Severity Reaction Onset Reported/Identified Relationship to Patient Clinical Status Yes SOMA MODERATE OTHER Yes carisoprodol [id number] Drug Allergy Unknown N/A 03/03/2017 Yes carisoprodol [id number] Drug Allergy Moderate SHAKING, AGITAT 08/25/2017 Medications Medication Packaging Start Date Stop Date Route Dosage Sig IBUPROFEN TAB 600 MG (MOTRIN) MG 08/24/2017 PRN ONCE ACETAMINOPHEN ORAL TABLET 325mg(Tylenol) MG 12/03/2018 01/02/2019 PRN EVERY 6 Hour NORMAL SALINE 1000CC IV BAG INJ 0.9 % (NS 1000CC IV BAG) ml 12/03/2018 12/10/2018 CONTINUOUSEVERY 0 Hour ALPRAZOLAM TAB 0.25 MG (XANAX) MG 12/03/2018 12/13/2018 PRN Q6H ENOXAPARIN SYRINGE INJ 40 MG (LOVENOX SYRINGE) MG 12/03/2018 12/12/2018 Daily&1800 Normal SALINE 0.9 % (NS 100cc) (plain bag) ml 12/03/2018 12/10/2018 Q8H&0200,1000,1800 CLONIDINE TAB 0.1 MG (CATAPRES) MG 12/03/2018 12/10/2018 PRN Q6H ACETAMINOPHEN SUPPOS SUP 650 MG (TYLENOL) MG 12/03/2018 12/10/2018 PRN Q4H ONDANSETRON VIAL INJ 4 MG/2CC (ZOFRAN 2CC VIAL) MG 12/03/2018 12/10/2018 PRN Q4H CALCIUM CARBONATE TAB 500 MG (TUMS) MG 12/03/2018 12/10/2018 PRN Q6H DIPHENHYDRAMINE CAP 25 MG (BENADRYL) MG 12/03/2018 12/10/2018 PRN Q6H ALBUTEROL SVN 2.5MG/3CC LIQ 2.5 MG (PROVENTIL ROBERT 2.5MG/3CC) MG 12/03/2018 12/13/2018 Q4H&0200,0600,1000,1400,1800,2200 NORMAL SALINE 250CC IV BAG INJ 0.9 % (NS 250CC IV BAG) ml 12/03/2018 12/10/2018 Q12H&0600,1800 HYDROCODONE/APAP 5MG/325MG TAB 5 MG/325MG (DEANGELO-TAB 5/325) TAB 12/03/2018 12/13/2018 PRN Q6H NORMAL SALINE 250CC IV BAG INJ 0.9 % (NS 250CC IV BAG) ml 12/03/2018 12/10/2018 Q12H&0800,2000 ALUM/MAG/SIMETH 30CC LIQ (MYLANTA PLUS) cc 12/03/2018 12/13/2018 PRN Q4H GUAIFENESIN - DM LIQ (ROBITUSSIN DM) MLS 12/03/2018 12/10/2018 PRN Q4H METHYLPREDNISOLONE VIAL INJ 125 MG/2CC (SOLU-MEDROL VIAL) MG 12/03/2018 12/08/2018 Q6H&0000,0600,1200,1800 Normal SALINE 0.9 % (NS 100cc) (plain bag) ml 12/03/2018 12/10/2018 EVERY 12 Hour&0600,1800,1933 Docusate sodium 100mg oral capsule (COLACE) 12/03/2018 01/02/2019 PRN BID METFORMIN TAB 500 MG (GLUCOPHAGE) Dose(s) 12/03/2018 12/10/2018 BID&0800,2000 NORMAL SALINE 250CC IV BAG INJ 0.9 % (NS 250CC IV BAG) ml 12/03/2018 12/10/2018 EVERY 12 Hour&0000,0733,1933,2000 LACTULOSE SYRUP LIQ 20 GM/30CC (CHRONULAC SYRUP) GM 12/03/2018 01/02/2019 BID&0800,2000 HYDROCHLOROTHIAZIDE TAB 25 MG (HYDRODIURIL) Dose(s) 12/03/2018 12/03/2018 ONCE&0900 METFORMIN TAB 500 MG (GLUCOPHAGE) Dose(s) 12/03/2018 12/03/2018 ONCE&0800,2000 ZOLPIDEM TAB 5 MG (AMBIEN) Dose(s) 12/03/2018 12/09/2018 QHS&2100 MELATONIN TAB 3 MG (MELATONIN) MG 12/03/2018 12/09/2018 PRN QHS INSULIN ASPART PEN INJ 100 UNITS/CC (NOVOLOG FLEXPEN) UNITS 12/03/2018 01/02/2019 ACHS&0630,1130,1630,2100 MONTELUKAST TAB 10 MG (SINGULAIR) Dose(s) 12/03/2018 12/09/2018 QHS&2100 ONDANSETRON 8 MG Oral DissolveTab (ZOFRAN) Dose(s) 12/03/2018 01/02/2019 PRN Q8H ASA 81MG CHEWABLE TAB 81 MG (BABY ASPIRIN) Dose(s) 12/04/2018 12/10/2018 Daily&0900 HYDROCHLOROTHIAZIDE TAB 25 MG (HYDRODIURIL) Dose(s) 12/04/2018 12/10/2018 Daily&0900 AMLODIPINE TAB 5 MG (NORVASC) Dose(s) 12/04/2018 12/10/2018 Daily&0900 BISACODYL TAB 5 MG (DULCOLAX) MG 12/10/2018 PRN Daily CLONIDINE TAB 0.1 MG (CATAPRES) Dose(s) 12/04/2018 12/10/2018 Daily&0900 POLYETHYLENE GLYCOL POWDER UD PWD (MIRALAX 17GM UNIT DOSE PAKS) gm 12/04/2018 12/10/2018 Daily&0900 CETIRIZINE TAB 10 MG (ZYRTEC) Dose(s) 12/04/2018 12/10/2018 Daily&0900 BISACODYL SUPPOS 10 MG (DULCOLAX SUPPOS) MG 12/04/2018 12/10/2018 PRN Daily MILK OF MAGNESIA LIQ ml 12/04/2018 01/02/2019 PRN Daily DEXAMETHASONE TAB 4 MG (DECADRON) Dose(s) 12/04/2018 12/04/2018 Q1WK&0900 ALBUTEROL SVN 2.5MG/3CC LIQ 2.5 MG (PROVENTIL ROBERT 2.5MG/3CC) MG 12/05/2018 12/15/2018 QID&0600,1100,1600,2100 METHYLPREDNISOLONE VIAL INJ 125 MG/2CC (SOLU-MEDROL VIAL) MG 12/05/2018 12/10/2018 Q12H&0600,1800 TAMSULOSIN CAP 0.4 MG (FLOMAX) MG 12/05/2018 12/12/2018 BID&0800,2000 FAMOTIDINE TAB 20 MG (PEPCID) MG 12/11/2018 QHS&2100 AMITRIPTYLINE TAB 25 MG (ELAVIL) MG 12/05/2018 12/11/2018 QHS&2100 CALCIUM CARBONATE TAB 500 MG (TUMS) MG 12/06/2018 12/12/2018 BID&0800,2000 CALCIUM CARBONATE TAB 500 MG (TUMS) MG 12/06/2018 01/04/2019 BID&0800,2000 FUROSEMIDE VIAL INJ 20 MG (LASIX VIAL) MG 12/06/2018 12/06/2018 ONCE&1544 FUROSEMIDE TAB 20 MG (LASIX) MG 12/06/2018 ONCE&1548 ALBUTEROL SVN 2.5MG/3CC LIQ 2.5 MG (PROVENTIL ROBERT 2.5MG/3CC) MG 12/06/2018 12/16/2018 QID&0600,1100,1600,2100 FUROSEMIDE VIAL INJ 20 MG (LASIX VIAL) MG 12/06/2018 12/06/2018 ONCE&1601 INSULIN ASPART PEN INJ 100 UNITS/CC (NOVOLOG FLEXPEN) 12/06/2018 01/05/2019 ACHS&0630,1130,1630,2100 ACETAMINOPHEN ORAL TABLET 325mg(Tylenol) MG 12/06/2018 01/05/2019 PRN EVERY 6 Hour ALPRAZOLAM TAB 0.25 MG (XANAX) MG 12/06/2018 12/16/2018 PRN Q6H ENOXAPARIN SYRINGE INJ 40 MG (LOVENOX SYRINGE) MG 12/06/2018 01/04/2019 Daily&1800 CLONIDINE TAB 0.1 MG (CATAPRES) MG 12/06/2018 12/13/2018 PRN Q6H ACETAMINOPHEN SUPPOS SUP 650 MG (TYLENOL) MG 12/06/2018 12/13/2018 PRN Q4H ONDANSETRON VIAL INJ 4 MG/2CC (ZOFRAN 2CC VIAL) MG 12/06/2018 12/13/2018 PRN Q4H CALCIUM CARBONATE TAB 500 MG (TUMS) MG 12/06/2018 12/13/2018 PRN Q6H DIPHENHYDRAMINE CAP 25 MG (BENADRYL) MG 12/06/2018 12/13/2018 PRN Q6H HYDROCODONE/APAP 5MG/325MG TAB 5 MG/325MG (DEANGELO-TAB 5/325) TAB 12/06/2018 12/16/2018 PRN Q6H Meropenem-0.9% sodium chloride IV piggyback 1 Gm GM 12/06/2018 12/16/2018 Q12H&0600,1800 ALUM/MAG/SIMETH 30CC LIQ (MYLANTA PLUS) cc 12/06/2018 12/16/2018 PRN Q4H GUAIFENESIN - DM LIQ (ROBITUSSIN DM) MLS 12/06/2018 12/13/2018 PRN Q4H METHYLPREDNISOLONE VIAL INJ 125 MG/2CC (SOLU-MEDROL VIAL) MG 12/06/2018 12/11/2018 Q12H&0600,1800 TAMSULOSIN CAP 0.4 MG (FLOMAX) MG 12/06/2018 01/05/2019 BID&0800,2000 Docusate sodium 100mg oral capsule (COLACE) 12/06/2018 01/05/2019 PRN BID NORMAL SALINE 250CC IV BAG INJ 0.9 % (NS 250CC IV BAG) ml 12/06/2018 12/16/2018 BID&0800,2000 LACTULOSE SYRUP LIQ 20 GM/30CC (CHRONULAC SYRUP) GM 12/06/2018 01/05/2019 BID&0800,2000 FAMOTIDINE TAB 20 MG (PEPCID) MG 01/04/2019 QHS&2100 AMITRIPTYLINE TAB 25 MG (ELAVIL) MG 12/06/2018 01/04/2019 QHS&2100 MONTELUKAST TAB 10 MG (SINGULAIR) MG 12/06/2018 01/04/2019 QHS&2100 MELATONIN TAB 3 MG (MELATONIN) MG 12/06/2018 12/12/2018 PRN QHS ZOLPIDEM TAB 5 MG (AMBIEN) MG 12/0601/04/2019 QHS &2100 CALMOSEPTINE OINT TUBE (RISAMINE OINT) deondre 12/07/2018 12/14/2018 PRN QID AMLODIPINE TAB 5 MG (NORVASC) MG 01/05/2019 Daily&0900 ASPIRIN ENTERIC COATED TAB 81 MG (BABY ASPIRIN EC) MG 12/07/2018 01/05/2019 Daily&0900 ENOXAPARIN SYRINGE INJ 40 MG (LOVENOX SYRINGE) MG 12/07/2018 01/05/2019 Daily&0900 BISACODYL TAB 5 MG (DULCOLAX) MG 12/13/2018 PRN Daily CLONIDINE TAB 0.1 MG (CATAPRES) MG 12/07/2018 01/05/2019 Daily&0900 POLYETHYLENE GLYCOL POWDER UD PWD (MIRALAX 17GM UNIT DOSE PAKS) gm 12/07/2018 12/13/2018 Daily&0900 CETIRIZINE TAB 10 MG (ZYRTEC) MG 01/05/2019 Daily&0900 BISACODYL SUPPOS 10 MG (DULCOLAX SUPPOS) MG 12/07/2018 12/13/2018 PRN Daily MILK OF YUNIOR LIQ ml 12/07/2018 01/05/2019 PRN Daily FUROSEMIDE VIAL INJ 20 MG (LASIX VIAL) MG 12/07/2018 12/07/2018 ONCE&1536 POTASSIUM CHLORIDE TAB 10 MEQ (K-DUR) MEQ 12/08/2018 01/06/2019 Daily&0900 FUROSEMIDE VIAL INJ 20 MG (LASIX VIAL) MG 12/08/2018 12/14/2018 Daily&0900 METHYLPREDNISOLONE VIAL INJ 125 MG/2CC (SOLU-MEDROL VIAL) MG 12/09/2018 12/13/2018 Daily&0600 Methylprednisolone inj susp 80mg (DEPO-Medrol) MG 12/16/2018 12/16/2018 ONCE&1003 DEXAMETHASONE VIAL INJ 4 MG/CC (DECADRON VIAL) MG 12/16/2018 12/23/2018 Q6H&0600,1200,1800,2359 DIPHENHYDRAMINE CAP 25 MG (BENADRYL) MG 12/16/2018 12/23/2018 PRN Q6H Problems Date Dx Coded Attending Type Code [...] 10/24/2014 Ot 571.8 10/24/2014 THEO KINNEY, KRUNAL Harden Ot 189.0 10/24/2014 TANIA KINNEY, MARTIN R [...] DO, CARLENE M Ot 490 10/24/2014 FRED SMITH, CARLENE M Ot 786.2 10/25/2014 TANIA KINNEY, [...] M43.16 SPONDYLOLISTHESIS, LUMBAR REGION 10/24/2015 ANA GONZALES MD, Ot M54.16 RADICULOPATHY, LUMBAR REGION 11/03/2015 JENI [...] MARTIN R Ot M54.5 12/07/2015 DAVID LEHMAN APRN Ot K57.32 DVTRCLI OF LG INT W/O PERFORATION OR ABS 12/07/2015 DAVID LEHMAN APRN Ot K80.20 CALCULUS OF GALLBLADDER W/O CHOLECYSTITI 12/07/2015 DAVID LEHMAN APRN Ot N40.1 ENLARGED PROSTATE WITH LOWER URINARY TRA 12/07/2015 DAVID LEHMAN APRN Ot Z98.89 OTHER SPECIFIED POSTPROCEDURAL STATES 12/09/2015 DAVID LEHMAN APRN Ot K57.32 12/09/2015 DAVID LEHMAN APRN Ot K80.20 12/09/2015 DAVID LEHMAN APRN Ot N40.1 12/09/2015 DAVID LEHMAN APRN Ot Z98.89 12/17/2015 MARTIN MARIN MD R Ot M54.5 06/10/2016 Ot 593.9 RENAL [...] KINNEY, FERNANDO A Ot 786.2 COUGH 06/10/2016 FRED SMITH CARLENE Haley Ot 490 BRONCHITIS NOS 06/10/2016 FRED CARLENE Haley Ot 786.2 COUGH 06/10/2016 FRED SMITH CARLENE Haley Ot 793.19 OTHER NONSPECIFIC ABNORMAL FINDING OF DEANNA 06/10/2016 CARLENE IBARRA DO Ot 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 06/10/2016 FRED SMITH CARLENE M Ot 491.9 CHRONIC BRONCHITIS NOS 06/10/2016 FRED SMITH CARLENE Haley Ot 786.2 COUGH 06/10/2016 CARLENE IBARRA DO Ot 786.30 HEMOPTYSIS, UNSPECIFIED 06/10/2016 FRED SMITH CARLENE M Ot 490 BRONCHITIS NOS 06/10/2016 FRED SMITH CARLENE Haley Ot 786.2 COUGH 06/10/2016 TANIA KINNEY, MARTIN [...] Ot 571.8 CHRONIC LIVER DIS NEC 08/09/2016 THEO KINNEY, KRUNAL A Ot 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 08/09/2016 TANIA [...] CARLENE IBARRA DO Ot 786.2 COUGH 08/09/2016 FREDCARLENE PEREZ DO Ot 786.30 HEMOPTYSIS, UNSPECIFIED 08/09/2016 FRED CARLENE SMITH Ot 490 BRONCHITIS NOS 08/09/2016 FRED CARLENE SMITH Ot 786.2 COUGH 08/09/2016 TANIA KINNEY, MARTIN [...] R Ot M54.5 LOW BACK PAIN 08/10/2016 KRUNAL VENEGAS MD Ot C64.9 MALIGNANT NEOPLASM OF UNSP KIDNEY, EXCEP 08/10/2016 KRUNAL VENEGAS MD Ot Z08 ENCNTR FOR FOLLOW-UP EXAM AFTER TRTMT FO 08/10/2016 KRUNAL VENEGAS MD Ot Z85.528 PERSONAL HISTORY OF OTHER MALIGNANT NEOP 08/31/2016 KRUNAL VENEGAS MD Ot Z08 ENCNTR FOR FOLLOW-UP EXAM AFTER TRTMT FO 08/31/2016 KRUNAL VENEGAS MD Ot Z85.528 PERSONAL HISTORY OF OTHER MALIGNANT NEOP 09/22/2016 KRUNAL VENEGAS MD Ot Z08 ENCNTR FOR FOLLOW-UP EXAM AFTER TRTMT FO 09/22/2016 KRUNAL VENEGAS MD, Ot Z85.528 PERSONAL HISTORY [...] DO Ot 491.9 CHRONIC BRONCHITIS NOS 11/29/2016 FREDCARLENE PEREZ DO Ot 786.2 COUGH 11/29/2016 FREDCARLENE PEREZ DO Ot 786.30 HEMOPTYSIS, UNSPECIFIED 11/29/2016 FRED CARLENE M Ot 490 BRONCHITIS NOS 11/29/2016 CARLENE IBARRA DO Ot 786.2 COUGH 11/29/2016 MARTIN MARIN MD R Ot 780.4 DIZZINESS AND GIDDINESS 11/29/2016 TANIA KINNEY MARTIN R Ot 784.0 HEADACHE 11/29/2016 TANIA KINNEY MARTIN R Ot 780.4 DIZZINESS AND GIDDINESS 11/29/2016 MARTIN MARIN MD R Ot 784.0 HEADACHE 11/29/2016 AMRTIN MARIN MD R Ot V81.5 SCREEN FOR NEPHROPATHY 11/29/2016 KRUNAL VENEGAS MD, Ot C64.2 MALIGNANT NEOPLASM OF LEFT KIDNEY, EXCEP 11/29/2016 MARTIN MARIN MD Ot R16.0 HEPATOMEGALY, NOT ELSEWHERE CLASSIFIED 11/29/2016 MARTIN MARIN MD R Ot M54.5 LOW BACK PAIN 11/29/2016 KRUNAL VENEGAS MD, Ot Z08 ENCNTR FOR FOLLOW-UP EXAM AFTER TRTMT FO 11/29/2016 KRUNAL VENEGAS MD, Ot Z85.528 PERSONAL HISTORY OF OTHER MALIGNANT NEOP 03/03/2017 KRUNAL VENEGAS MD, Ot N40.0 BENIGN PROSTATIC HYPERPLASIA WITHOUT LOW 03/03/2017 KRUNAL VENEGAS MD, Ot Z01.812 ENCOUNTER FOR PREPROCEDURAL LABORATORY E 03/03/2017 KRUNAL VENEGAS MD, Ot Z11.2 ENCOUNTER FOR SCREENING FOR OTHER BACTER 03/08/2017 KRUNAL VENEGAS MD Ot E11.9 TYPE 2 DIABETES MELLITUS WITHOUT COMPLIC 03/08/2017 KRUNAL VENEGAS MD Ot E78.00 PURE HYPERCHOLESTEROLEMIA, UNSPECIFIED 03/08/2017 KRUNAL VENEGAS MD Ot I10 ESSENTIAL (PRIMARY) HYPERTENSION 03/08/2017 KRUNAL VENEGAS MD, Ot N40.0 BENIGN PROSTATIC HYPERPLASIA WITHOUT LOW 03/08/2017 KRUNAL VENEGAS MD, Ot Z79.84 FDC (CURRENT) USE OF ORAL HYPOGLYC 03/08/2017 KRUNAL VENEGAS MD, Ot Z79.899 OTHER REAL ESTATE COORDINATOR (CURRENT) DRUG THERAPY 03/09/2017 KRUNAL VENEGAS MD, Ot N40.0 BENIGN PROSTATIC HYPERPLASIA WITHOUT LOW [...] ABSCESS OF UPPER ARM AND FOREARM 03/12/2017 Dileep Ramires E11.9 TYPE 2 DIABETES MELLITUS WITHOUT COMPLICATIONS 03/12/2017 Dileep Ramires I10 ESSENTIAL (PRIMARY) HYPERTENSION 03/12/2017 Dileep Ramires L03.114 CELLULITIS OF LEFT UPPER LIMB 03/15/2017 Dileep Ramires 682.3 CELLULITIS AND ABSCESS OF UPPER ARM AND FOREARM 03/15/2017 Dileep Ramires L03.114 CELLULITIS OF LEFT UPPER LIMB 07/06/2017 MARTIN MARIN MD R Ot M79.604 PAIN IN RIGHT LEG 07/06/2017 MARTIN MARIN MD R Ot R22.41 LOCALIZED SWELLING, MASS AND LUMP, RIGHT 07/09/2017 DAVID LEHMAN APRN Ot I10 ESSENTIAL (PRIMARY) HYPERTENSION 07/09/2017 DAVID LEHMAN APRN Ot K21.9 GASTRO-ESOPHAGEAL REFLUX DISEASE WITHOUT 07/09/2017 DAVID LEHMAN APRN Ot R26.89 OTHER ABNORMALITIES OF GAIT AND MOBILITY 07/09/2017 DAVID LEHMAN APRN Ot R42 DIZZINESS AND GIDDINESS 07/09/2017 DAVID LEHMAN APRN Ot Z79.84 REAL ESTATE COORDINATOR (CURRENT) USE OF ORAL HYPOGLYC 07/09/2017 DAVID LEHMAN APRN Ot Z85.528 PERSONAL HISTORY OF OTHER MALIGNANT NEOP 07/09/2017 DAVID LEHMAN LANGUAGE TRANSLATOR Ot Z87.891 PERSONAL HISTORY OF NICOTINE DEPENDENCE 07/09/2017 DAVID LEHMAN LANGUAGE TRANSLATOR Ot Z90.5 ACQUIRED ABSENCE OF KIDNEY 07/09/2017 DAVID LEHMAN LANGUAGE TRANSLATOR Ot Z97.4 PRESENCE OF EXTERNAL HEARING-AID 07/12/2017 TANIA KINNEY, MARTIN R Ot Z86.73 PRSNL HX OF TIA (TIA), AND CEREB INFRC W 07/12/2017 MARTIN MARIN MD R Ot Z86.73 PRSNL HX OF TIA (TIA), AND CEREB INFRC W 07/14/2017 MARTIN MARIN MD R Ot Z86.73 PRSNL HX OF TIA (TIA), AND CEREB INFRC W 07/22/2017 Ot 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 07/22/2017 Ot 571.8 CHRONIC LIVER DIS NEC 07/22/2017 Ot 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 07/22/2017 Ot 562.10 DIVERTICULOSIS COLON (W/O MENT OF HEMORR 07/22/2017 Ot 571.8 CHRONIC LIVER DIS NEC 07/22/2017 THEO KINNEY, KRUNAL A Ot 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 07/22/2017 TANIA KINNEY, MARTIN R Ot 780.60 FEVER, UNSPECIFIED 07/22/2017 MARTIN MARIN MD R Ot 786.2 COUGH 07/22/2017 SOHA KINNEY, FERNANDO A Ot 491.9 CHRONIC BRONCHITIS NOS 07/22/2017 SOHA KINNEY, FERNANDO A Ot 786.09 RESPIRATORY ABNORM NEC 07/22/2017 SOHA KINNEY, FERNANDO A Ot 786.2 COUGH 07/22/2017 CARLENE IBARRA DO Ot 490 BRONCHITIS NOS 07/22/2017 CARLENE IBARRA DO Ot 786.2 COUGH 07/22/2017 CARLENE IBARRA DO Ot 793.19 OTHER NONSPECIFIC ABNORMAL FINDING OF DEANNA 07/22/2017 CARLENE IBARAR DO Ot 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 07/22/2017 CARLENE IBARRA DO Ot 491.9 CHRONIC BRONCHITIS NOS 07/22/2017 CARLENE IBARRA DO Ot 786.2 COUGH 07/22/2017 CARLENE IBARRA DO Ot 786.30 HEMOPTYSIS, UNSPECIFIED 07/22/2017 CARLENE IBARRA DO Ot 490 BRONCHITIS NOS 07/22/2017 CARLENE IBARRA DO Ot 786.2 COUGH 07/22/2017 MARTIN MARIN MD Ot 780.4 DIZZINESS AND GIDDINESS 07/22/2017 MARTIN MARIN MD R Ot 784.0 HEADACHE 07/22/2017 MARTIN MARIN MD Ot 780.4 DIZZINESS AND GIDDINESS 07/22/2017 MARTIN MARIN MD R Ot 784.0 HEADACHE 07/22/2017 MARTIN MARIN MD Ot V81.5 SCREEN FOR NEPHROPATHY 07/22/2017 KRUNAL VENEGAS MD, Ot C64.2 MALIGNANT NEOPLASM OF LEFT KIDNEY, EXCEP 07/22/2017 MARTIN MARIN MD Ot R16.0 HEPATOMEGALY, NOT ELSEWHERE CLASSIFIED 07/22/2017 MARTIN MARIN MD Ot M54.5 LOW BACK PAIN 07/22/2017 KRUNAL VENEGAS MD, Ot Z08 ENCNTR FOR FOLLOW-UP EXAM AFTER TRTMT FO 07/22/2017 KRUNAL VENEGAS MD, Ot Z85.528 PERSONAL HISTORY OF OTHER MALIGNANT NEOP 07/22/2017 MARTIN MARIN MD Ot M79.604 PAIN IN RIGHT LEG 07/22/2017 MARTIN MARIN MD Ot R22.41 LOCALIZED SWELLING, MASS AND LUMP, RIGHT 07/22/2017 MARTIN MARIN MD Ot 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 07/22/2017 MARTIN MARIN MD Ot Z86.73 PRSNL HX [...] AND CEREB INFRC W 08/24/2017 David Lehman W 401.0 MALIGNANT ESSENTIAL HYPERTENSION 08/24/2017 David Lehman 465.8 ACUTE UPPER RESPIRATORY INFECTIONS OF OTHER MULTIPLE SITES 08/24/2017 David Lehman 780.60 FEVER, UNSPECIFIED 08/24/2017 David Lehman I10 ESSENTIAL (PRIMARY) HYPERTENSION 08/24/2017 David Lehman J06.9 ACUTE UPPER RESPIRATORY INFECTION, UNSPECIFIED 08/24/2017 David Lehman R50.9 FEVER, UNSPECIFIED 08/27/2017 RANJIT GAUTAM DO Ot E11.9 TYPE 2 DIABETES MELLITUS WITHOUT COMPLIC 08/27/2017 KATHLEEN GAUTAM DOI Ot E86.0 DEHYDRATION 08/27/2017 LOTUS SMITH RANJIT Ot I10 ESSENTIAL (PRIMARY) HYPERTENSION 08/27/2017 RANJIT GAUTAM DO Ot J18.9 PNEUMONIA, UNSPECIFIED ORGANISM 08/27/2017 KATHLEEN GAUTAM DOI Ot J44.0 CHRONIC OBSTRUCTIVE PULMON DISEASE W ACU 08/27/2017 RANJIT GAUTAM DO Ot J45.909 UNSPECIFIED ASTHMA, UNCOMPLICATED 08/27/2017 KATHLEEN GAUTAM DOI Ot Z79.82 REAL ESTATE COORDINATOR (CURRENT) USE OF ASPIRIN 08/27/2017 KATHLEEN GAUTAM DOI Ot Z79.84 FDC (CURRENT) USE OF ORAL HYPOGLYC 08/27/2017 RANJIT GAUTAM DO Ot Z79.899 OTHER REAL ESTATE COORDINATOR (CURRENT) DRUG THERAPY 08/27/2017 RANJIT GAUTAM DO Ot Z87.891 PERSONAL HISTORY OF NICOTINE DEPENDENCE 08/27/2017 RANJIT GAUTAM DO Ot Z88.8 ALLERGY STATUS TO OTH DRUG/MEDS/BIOL SUB 08/29/2017 TANIA KINNEY, MARTIN Arriaga Ot 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 08/29/2017 TANIA KINNEY, MARTIN Arriaga Ot Z86.73 PRSNL HX OF TIA (TIA), AND CEREB INFRC W 10/06/2017 DERECK CISNEROS APRN Ot J18.9 PNEUMONIA, UNSPECIFIED ORGANISM 10/06/2017 DERECK CISNEROS APRN Ot J44.9 CHRONIC OBSTRUCTIVE PULMONARY DISEASE, U 10/06/2017 DERECK CISNEROS APRN Ot J18.9 PNEUMONIA, UNSPECIFIED ORGANISM 10/06/2017 DERECK CISNEROS APRN Ot J44.9 CHRONIC OBSTRUCTIVE PULMONARY DISEASE, U 10/26/2017 AMELIA, DERECK E LANGUAGE TRANSLATOR Ot J18.9 PNEUMONIA, UNSPECIFIED ORGANISM 10/26/2017 DERECK CISNEROS LANGUAGE TRANSLATOR Ot J44.9 CHRONIC OBSTRUCTIVE PULMONARY DISEASE, U 11/22/2017 DERECK CISNEROS LANGUAGE TRANSLATOR Ot J18.9 PNEUMONIA, UNSPECIFIED ORGANISM 11/22/2017 DERECK CISNEROS LANGUAGE TRANSLATOR Ot J44.9 CHRONIC OBSTRUCTIVE PULMONARY DISEASE, U 09/22/2018 THEO KINNEY, KRUNAL Harden Ot 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 09/22/2018 TANIA KINNEY, MARTIN R Ot 780.60 FEVER, UNSPECIFIED 09/22/2018 TANIA KINNEY, MARTIN R Ot 786.2 COUGH 09/22/2018 SOHA KINNEY, FERNANDO A Ot 491.9 CHRONIC BRONCHITIS NOS 09/22/2018 SOHA KINNEY, FERNANDO A Ot 786.09 RESPIRATORY ABNORM NEC 09/22/2018 SOHA KINNEY, FERNANDO A Ot 786.2 COUGH 09/22/2018 CARLENE IBARRA DO M Ot 490 BRONCHITIS NOS 09/22/2018 SPENCER IBARRA DOSON M Ot 786.2 COUGH 09/22/2018 SPENCER IBARRA DOSON M Ot 793.19 OTHER NONSPECIFIC ABNORMAL FINDING OF DEANNA 09/22/2018 CARLENE IBARRA DO Ot 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 09/22/2018 SPENCER IBARRA DOSON M Ot 491.9 CHRONIC BRONCHITIS NOS 09/22/2018 SPENCER IBARRA DOSON M Ot 786.2 COUGH 09/22/2018 CARLENE IBARRA DO M Ot 786.30 HEMOPTYSIS, UNSPECIFIED 09/22/2018 CARLENE IBARRA DO Ot 490 BRONCHITIS NOS 09/22/2018 SPENCER IBARRA DOSON M Ot 786.2 COUGH 09/22/2018 TANIA KINNEY, MARTIN R Ot 780.4 DIZZINESS AND GIDDINESS 09/22/2018 TANIA KINNEY, MARTIN R Ot 784.0 HEADACHE 09/22/2018 TANIA KINNEY, MARTIN R Ot 780.4 DIZZINESS AND GIDDINESS 09/22/2018 TANIA KINNEY, MARTIN R Ot 784.0 HEADACHE 09/22/2018 TANIA KINNEY, MARTIN R Ot V81.5 SCREEN FOR NEPHROPATHY 09/22/2018 THEO KINNEY, KRUNAL A Ot C64.2 MALIGNANT NEOPLASM OF LEFT KIDNEY, EXCEP 09/22/2018 TANIA KINNEY, MARTIN Arriaga Ot R16.0 HEPATOMEGALY, NOT ELSEWHERE CLASSIFIED 09/22/2018 MARTIN MARIN MD Ot M54.5 LOW BACK PAIN 09/22/2018 THEO KINNEY, KRUNAL Harden Ot Z08 ENCNTR FOR FOLLOW-UP EXAM AFTER TRTMT FO 09/22/2018 KRUNAL VENEGAS MD, Ot Z85.528 PERSONAL HISTORY OF OTHER MALIGNANT NEOP 09/22/2018 MARTIN MARIN MD Ot M79.604 PAIN IN RIGHT LEG 09/22/2018 MARTIN MARIN MD Ot R22.41 LOCALIZED SWELLING, MASS AND LUMP, RIGHT 09/22/2018 MARTIN MARIN MD Ot 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 09/22/2018 MARTIN MARIN MD Ot Z86.73 PRSNL HX OF TIA (TIA), AND CEREB INFRC W 09/22/2018 DERECK CISNEROS APRN Ot J18.9 PNEUMONIA, UNSPECIFIED ORGANISM 09/22/2018 DERECK CISNEROS APRN Ot J44.9 CHRONIC OBSTRUCTIVE PULMONARY DISEASE, U 09/25/2018 EMANUEL ALEJANDRA R LANGUAGE TRANSLATOR Ot 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 09/25/2018 JUSTYN EMANUEL R LANGUAGE TRANSLATOR Ot M51.36 OTHER INTERVERTEBRAL DISC DEGENERATION, 09/25/2018 JUSTYN EMANUEL R LANGUAGE TRANSLATOR Ot 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 09/25/2018 JUSTYN EMANUEL R LANGUAGE TRANSLATOR Ot M51.36 OTHER INTERVERTEBRAL DISC DEGENERATION, 09/25/2018 JUSTYN EMANUEL R LANGUAGE TRANSLATOR Ot 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 09/25/2018 JUSTYN EMANUEL R LANGUAGE TRANSLATOR Ot M51.36 OTHER INTERVERTEBRAL DISC DEGENERATION, 10/17/2018 DERECK CISNEROS APRN Ot J42 UNSPECIFIED CHRONIC BRONCHITIS 10/17/2018 DERECK CISNEROS APRN Ot J45.909 UNSPECIFIED ASTHMA, UNCOMPLICATED 10/17/2018 DERECK CISNEROS APRN Ot K80.20 CALCULUS OF GALLBLADDER W/O CHOLECYSTITI 10/17/2018 DERECK CISNEROS APRN Ot M89.9 DISORDER OF BONE, UNSPECIFIED 10/17/2018 AMELIA, DERECK E LANGUAGE TRANSLATOR Ot R16.0 HEPATOMEGALY, NOT ELSEWHERE CLASSIFIED 10/23/2018 EMANUEL ALEJANDRA LANGUAGE TRANSLATOR Ot 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 10/23/2018 EMANUEL ALEJANDRA LANGUAGE TRANSLATOR Ot M51.36 OTHER INTERVERTEBRAL DISC DEGENERATION, 10/24/2018 CARLENE IBARRA DO, Ot C64.9 MALIGNANT NEOPLASM OF UNSP KIDNEY, EXCEP 10/24/2018 CARLENE IBARRA DO Ot M89.9 DISORDER OF BONE, UNSPECIFIED 11/03/2018 FLOR BERUMEN Ot C79.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 11/03/2018 FLOR BERUMEN Ot C80.1 MALIGNANT (PRIMARY) NEOPLASM, UNSPECIFIE 11/03/2018 FLOR BERUMEN Ot M89.9 DISORDER OF BONE, UNSPECIFIED 11/03/2018 FLOR BERUMEN Ot Z85.528 PERSONAL HISTORY OF OTHER MALIGNANT NEOP 11/05/2018 FLOR BERUMEN Ot C79.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 11/05/2018 FLOR BERUMEN Ot C80.1 MALIGNANT (PRIMARY) NEOPLASM, UNSPECIFIE 11/05/2018 FLOR BERUMEN Ot M89.9 DISORDER OF BONE, UNSPECIFIED 11/05/2018 FLOR BERUMEN Ot Z85.528 PERSONAL HISTORY OF OTHER MALIGNANT NEOP 11/07/2018 EMANUEL ALEJANDRA LANGUAGE TRANSLATOR Ot 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 11/07/2018 EMANUEL ALEJANDRA LANGUAGE TRANSLATOR Ot M51.36 OTHER INTERVERTEBRAL DISC DEGENERATION, 11/08/2018 FLOR BERUMEN Ot I10 ESSENTIAL (PRIMARY) HYPERTENSION 11/08/2018 FLOR BERUMEN Ot J44.9 CHRONIC OBSTRUCTIVE PULMONARY DISEASE, U 11/08/2018 FLOR BERUMEN Ot M89.9 DISORDER OF BONE, UNSPECIFIED 11/08/2018 FLOR BERUMEN Ot Z79.899 OTHER [facility] (CURRENT) DRUG THERAPY 11/08/2018 FLOR BERUMEN Ot Z85.528 PERSONAL HISTORY OF OTHER MALIGNANT NEOP 11/08/2018 FLOR BERUMEN Ot Z87.891 PERSONAL HISTORY OF NICOTINE DEPENDENCE 11/08/2018 FLOR BERUMEN Ot Z90.5 ACQUIRED ABSENCE OF KIDNEY 11/08/2018 [place], BOBAN N Ot I10 ESSENTIAL (PRIMARY) HYPERTENSION 11/08/2018 [place] FLOR N Ot J44.9 CHRONIC OBSTRUCTIVE PULMONARY DISEASE, U 11/08/2018 [place] TEREZABOBBY N Ot M89.9 DISORDER OF BONE, UNSPECIFIED 11/08/2018 [place] FLOR N Ot Z79.899 OTHER REAL ESTATE COORDINATOR (CURRENT) DRUG THERAPY 11/08/2018 [place] FLOR N Ot Z85.528 PERSONAL HISTORY OF OTHER MALIGNANT NEOP 11/08/2018 [place] FLOR N Ot Z87.891 PERSONAL HISTORY OF NICOTINE DEPENDENCE 11/08/2018 [place] FLOR N Ot Z90.5 ACQUIRED ABSENCE OF KIDNEY 11/08/2018 [place] FLOR N Ot I10 ESSENTIAL (PRIMARY) HYPERTENSION 11/08/2018 [place] FLOR N Ot J44.9 CHRONIC OBSTRUCTIVE PULMONARY DISEASE, U 11/08/2018 [place] TEREZABOBBY N Ot M89.9 DISORDER OF BONE, UNSPECIFIED 11/08/2018 [place] FLOR N Ot Z79.899 OTHER REAL ESTATE COORDINATOR (CURRENT) DRUG THERAPY 11/08/2018 [place] TEREZABOBBY N Ot Z85.528 PERSONAL HISTORY OF OTHER MALIGNANT NEOP 11/08/2018 [place] TEREZABOBBY N Ot Z87.891 PERSONAL HISTORY OF NICOTINE DEPENDENCE 11/08/2018 [place] TEREZABOBBY N Ot Z90.5 ACQUIRED ABSENCE OF KIDNEY 11/09/2018 DERECK CISNEROS LANGUAGE TRANSLATOR Ot J42 UNSPECIFIED CHRONIC BRONCHITIS 11/09/2018 DERECK CISNEROS LANGUAGE TRANSLATOR Ot J45.909 UNSPECIFIED ASTHMA, UNCOMPLICATED 11/09/2018 DERECK CISNEROS LANGUAGE TRANSLATOR Ot K80.20 CALCULUS OF GALLBLADDER W/O CHOLECYSTITI 11/09/2018 DERECK CISNEROS LANGUAGE TRANSLATOR Ot M89.9 DISORDER OF BONE, UNSPECIFIED 11/09/2018 DERECK CISNEROS LANGUAGE TRANSLATOR Ot R16.0 HEPATOMEGALY, NOT ELSEWHERE CLASSIFIED 11/14/2018 JAMAICAFLOR N Ot I10 ESSENTIAL (PRIMARY) HYPERTENSION 11/14/2018 FLOR BERUMEN N Ot J44.9 CHRONIC OBSTRUCTIVE PULMONARY DISEASE, U 11/14/2018 FLOR BERUMEN N Ot M89.9 DISORDER OF BONE, UNSPECIFIED 11/14/2018 FLOR BERUMEN N Ot Z79.899 OTHER REAL ESTATE COORDINATOR (CURRENT) DRUG THERAPY 11/14/2018 JAMAICAFLOR ELLIOTT N Ot Z85.528 PERSONAL HISTORY OF OTHER MALIGNANT NEOP 11/14/2018 FLOR BERUMEN N Ot Z87.891 PERSONAL HISTORY OF NICOTINE DEPENDENCE 11/14/2018 [place] TEREZABOBBY N Ot Z90.5 ACQUIRED ABSENCE OF KIDNEY 11/23/2018 CARLENE IBARRA DO Ot C64.9 MALIGNANT NEOPLASM OF UNSP KIDNEY, EXCEP 11/23/2018 CARLENE IBARRA DO Ot M89.9 DISORDER OF BONE, UNSPECIFIED 11/27/2018 [place] FLOR N Ot I10 ESSENTIAL (PRIMARY) HYPERTENSION 11/27/2018 JAMAICAFLOR N Ot J44.9 CHRONIC OBSTRUCTIVE PULMONARY DISEASE, U 11/27/2018 [place] FLOR N Ot M89.9 DISORDER OF BONE, UNSPECIFIED 11/27/2018 [place] TEREZABOBBY N Ot Z79.899 OTHER FDC (CURRENT) DRUG THERAPY 11/27/2018 [place] FLOR N Ot Z85.528 PERSONAL HISTORY OF OTHER MALIGNANT NEOP 11/27/2018 [place] TEREZABOBBY N Ot Z87.891 PERSONAL HISTORY OF NICOTINE DEPENDENCE 11/27/2018 [place], TEREZABOBBY N Ot Z90.5 ACQUIRED ABSENCE OF KIDNEY 12/01/2018 [place] FLOR N Ot I10 ESSENTIAL (PRIMARY) HYPERTENSION 12/01/2018 JAMAICAFLOR N Ot J44.9 CHRONIC OBSTRUCTIVE PULMONARY DISEASE, U 12/01/2018 [place] TEREZABOBBY N Ot M89.9 DISORDER OF BONE, UNSPECIFIED 12/01/2018 JAMAICAFLOR N Ot Z79.899 OTHER FDC (CURRENT) DRUG THERAPY 12/01/2018 [place] TEREZABOBBY N Ot Z85.528 PERSONAL HISTORY OF OTHER MALIGNANT NEOP 12/01/2018 [place] TEREZABOBBY N Ot Z87.891 PERSONAL HISTORY OF NICOTINE DEPENDENCE 12/01/2018 JAMAICAFLOR N Ot Z90.5 ACQUIRED ABSENCE OF KIDNEY 12/01/2018 [place] FLOR N Ot I10 ESSENTIAL (PRIMARY) HYPERTENSION 12/01/2018 JAMAICAFLOR N Ot J44.9 CHRONIC OBSTRUCTIVE PULMONARY DISEASE, U 12/01/2018 JAMAICAFLOR N Ot M89.9 DISORDER OF BONE, UNSPECIFIED 12/01/2018 FLOR BERUMEN Claudette Ot Z79.899 OTHER FDC (CURRENT) DRUG THERAPY 12/01/2018 FLOR BERUMEN Claudette Ot Z85.528 PERSONAL HISTORY OF OTHER MALIGNANT NEOP 12/01/2018 FLOR BERUMEN Claudette Ot Z87.891 PERSONAL HISTORY OF NICOTINE DEPENDENCE 12/01/2018 FLOR BERUMEN Claudette Ot Z90.5 ACQUIRED ABSENCE OF KIDNEY 12/03/2018 Lotus Ranjit W 486 PNEUMONIA, ORGANISM UNSPECIFIED 12/03/2018 Gautam, Ranjit W 799.02 HYPOXEMIA 12/03/2018 GautamKathleeni W J18.9 PNEUMONIA, UNSPECIFIED ORGANISM 12/03/2018 Kathleen Gautami W R09.02 HYPOXEMIA 12/04/2018 FLOR BERUMEN Claudette Ot R50.9 FEVER, UNSPECIFIED 12/06/2018 DERECK CISNEROS LANGUAGE TRANSLATOR Ot J42 UNSPECIFIED CHRONIC BRONCHITIS 12/06/2018 DERECK CISNEROS LANGUAGE TRANSLATOR Ot J45.909 UNSPECIFIED ASTHMA, UNCOMPLICATED 12/06/2018 DERECK CISNEROS LANGUAGE TRANSLATOR Ot K80.20 CALCULUS OF GALLBLADDER W/O CHOLECYSTITI 12/06/2018 DERECK CISNEROS LANGUAGE TRANSLATOR Ot M89.9 DISORDER OF BONE, UNSPECIFIED 12/06/2018 DERECK CISNEROS LANGUAGE TRANSLATOR Ot R16.0 HEPATOMEGALY, NOT ELSEWHERE CLASSIFIED 12/14/2018 DERECK CISNEROS LANGUAGE TRANSLATOR Ot 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 12/14/2018 DERECK CISNEROS LANGUAGE TRANSLATOR Ot 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, UNSPECIFIED, 12/14/2018 DERECK CISNEROS LANGUAGE TRANSLATOR Ot J18.1 LOBAR PNEUMONIA, UNSPECIFIED ORGANISM 12/14/2018 DERECK CISNEROS LANGUAGE TRANSLATOR Ot J42 UNSPECIFIED CHRONIC BRONCHITIS 12/14/2018 DERECK CISNEROS LANGUAGE TRANSLATOR Ot J45.909 UNSPECIFIED ASTHMA, UNCOMPLICATED 12/14/2018 DERECK CISNEROS LANGUAGE TRANSLATOR Ot Z85.528 PERSONAL HISTORY OF OTHER MALIGNANT NEOP 12/16/2018 BRETTERIK W 203.0 MULTIPLE MYELOMA 12/16/2018 BRETTERIK W 782.1 RASH AND OTHER NONSPECIFIC SKIN ERUPTION 12/16/2018 BRETT ERIK W 995.27 OTHER DRUG ALLERGY 12/16/2018 ERIK WEST 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ISSION 12/16/2018 ERIK WEST R21 RASH AND OTHER NONSPECIFIC SKIN ERUPTION 12/16/2018 ERIK WEST Z88.9 ALLERGY STATUS TO UNSPECIFIED DRUGS, MEDICAMENTS AND BIOLOGICAL SUBSTANCES STATUS 12/16/2018 ERIK WEST 203.0 MULTIPLE MYELOMA 12/16/2018 ERIK WEST 203.00 MULTIPLE MYELOMA WITHOUT MENTION OF HAVING ACHIEVED REMISSION 12/16/2018 ERIK WEST 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 12/16/2018 ERIK WEST 995.27 OTHER DRUG ALLERGY 12/16/2018 ERIK WEST 995.29 UNSPECIFIED ADVERSE EFFECT OF OTHER DRUG, MEDICINAL AND BIOLOGICAL SUBSTANCE 12/16/2018 ERIK WEST 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ISSION 12/16/2018 ERIK WEST L50.0 ALLERGIC URTICARIA 12/16/2018 ERIK WEST T50.995A ADVERSE EFFECT OF DRUG/MEDS/BIOL SUBST, INIT 12/16/2018 ERIK WEST Z88.9 ALLERGY STATUS TO UNSPECIFIED DRUGS, MEDICAMENTS AND BIOLOGICAL SUBSTANCES STATUS 12/19/2018 FLOR BERUMEN Ot I10 ESSENTIAL (PRIMARY) HYPERTENSION 12/19/2018 FLOR BERUMEN Ot J44.9 CHRONIC OBSTRUCTIVE PULMONARY DISEASE, U 12/19/2018 FLOR BERUMEN Ot M89.9 DISORDER OF BONE, UNSPECIFIED 12/19/2018 FLOR BERUMEN Ot Z79.899 OTHER REAL ESTATE COORDINATOR (CURRENT) DRUG THERAPY 12/19/2018 FLOR BERUMEN Ot Z85.528 PERSONAL HISTORY OF OTHER MALIGNANT NEOP 12/19/2018 FLOR BERUMEN Ot Z87.891 PERSONAL HISTORY OF NICOTINE DEPENDENCE 12/19/2018 FLOR BERUMEN Ot Z90.5 ACQUIRED ABSENCE OF KIDNEY 12/19/2018 FLOR BERUMEN Ot I10 ESSENTIAL (PRIMARY) HYPERTENSION 12/19/2018 FLOR BERUMEN Ot J44.9 CHRONIC OBSTRUCTIVE PULMONARY DISEASE, U 12/19/2018 FLOR BERUMEN Ot M89.9 DISORDER OF BONE, UNSPECIFIED 12/19/2018 FLOR BERUMEN Ot Z79.899 OTHER FDC (CURRENT) DRUG THERAPY 12/19/2018 FLOR BERUMEN Ot Z85.528 PERSONAL HISTORY OF OTHER MALIGNANT NEOP 12/19/2018 FLOR BERUMEN Ot Z87.891 PERSONAL HISTORY OF NICOTINE DEPENDENCE 12/19/2018 FLOR BERUMEN Ot Z90.5 ACQUIRED ABSENCE OF KIDNEY 12/21/2018 WILSONVICK Lowry PLANOGRAMMER Ot 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 12/21/2018 WILSON VICK Lowry PLANOGRAMMER Ot R05 COUGH 12/25/2018 FLOR BERUMEN Ot R50.9 FEVER, UNSPECIFIED 12/25/2018 DERECK CISNEROS LANGUAGE TRANSLATOR Ot 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 12/25/2018 DERECK CISNEROS LANGUAGE TRANSLATOR Ot 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, UNSPECIFIED, 12/25/2018 DERECK CISNEROS LANGUAGE TRANSLATOR Ot I34.0 NONRHEUMATIC MITRAL (VALVE) INSUFFICIENC 12/25/2018 DERECK CISNEROS LANGUAGE TRANSLATOR Ot J18.9 PNEUMONIA, UNSPECIFIED ORGANISM 12/25/2018 DERECK CISNEROS LANGUAGE TRANSLATOR Ot J42 UNSPECIFIED CHRONIC BRONCHITIS 12/25/2018 DERECK CISNEROS APRN Ot J45.909 UNSPECIFIED ASTHMA, UNCOMPLICATED 12/25/2018 DERECK CISNEROS LANGUAGE TRANSLATOR Ot R42 DIZZINESS AND GIDDINESS 12/25/2018 DERECK CISNEROS LANGUAGE TRANSLATOR Ot R91.8 OTHER NONSPECIFIC ABNORMAL FINDING OF DEANNA 12/25/2018 DERECK CISNEROS LANGUAGE TRANSLATOR Ot Z85.528 PERSONAL HISTORY OF OTHER MALIGNANT NEOP Procedures There is no data. Results Test [...] Urine-Bilirubin Negative Negative Urine-Blood 3+ Negative Urine-Color [place] Colorless-Lt. Yellow Urine-Glucose Trace Negative Urine-Ketones Negative Negative Urine-Leukocytes Trace Negative Urine-Nitrite Positive Negative Urine-Other Urine Saved if Culture Needed (48hrs from time of collection) Urine-pH 5.0 5-8.5 Urine-Protein 2+ Negative Urine-RBC 10-20/HPF Urine-Specific [place] <=1.005 1.000-1.030 Urine-WBC Rare/HPF Urobilinogen 1.0 E.U./dL 0.2-1.0 Sed Rate - 03/12/17 17:54 Sed Rate [...] 10:30 Urine Legionella pneumophila antigen assay Negative [facility] Streptococcus pneumoniae antigen detection - 08/26/17 10:30 Streptococcus pneumoniae antigen detection Negative [facility] Automated blood complete blood count (hemogram) panel [...] platelet mean volume measurement 9.6 [foz_us] 7.4-10.4 PT panel in platelet poor plasma by coagulation assay - 11/03/18 11:20 Prothrombin time (PT) in platelet poor plasma by coagulation assay 12.8 s 12.2-14.7 INR in platelet poor plasma or blood by coagulation assay 1.0 0.8-1.4 Activated partial thromboplastin time (aPTT) in platelet poor plasma bycoagulation assay - 11/03/18 11:20 Activated partial thromboplastin time (aPTT) in platelet poor plasma bycoagulation assay 26 s 24-35 Complete blood count (CBC) with automated white blood cell (WBC) differential - 11/03/18 12:50 Blood leukocytes automated count (number/volume) 5.2 10*3/uL 4.3-11.0 Blood erythrocytes automated count (number/volume) 3.66 10*6/uL 4.35-5.85 Venous blood hemoglobin measurement (mass/volume) 11.4 g/dL 13.3-17.7 Blood hematocrit (volume fraction) 35 % 40-54 Automated erythrocyte mean corpuscular volume 96 [foz_us] 80-99 Automated erythrocyte mean corpuscular hemoglobin (mass per erythrocyte) 31 pg 25-34 Automated erythrocyte mean corpuscular hemoglobin concentration measurement ( mass/volume) 33 g/dL 32-36 Automated erythrocyte distribution width ratio 13.3 % 10.0-14.5 Automated blood platelet count (count/volume) 165 10*3/uL 130-400 Automated blood platelet mean volume measurement 10.1 [foz_us] 7.4-10.4 Automated blood neutrophils/100 leukocytes 54 % 42-75 Automated blood lymphocytes/100 leukocytes 34 % 12-44 Blood monocytes/100 leukocytes 7 % 0-12 Automated blood eosinophils/100 leukocytes 5 % 0-10 Automated blood basophils/100 leukocytes 0 % 0-10 Blood neutrophils automated count (number/volume) 2.8 10*3 1.8-7.8 Blood lymphocytes automated count (number/volume) 1.8 10*3 1.0-4.0 Blood monocytes automated count (number/volume) 0.3 10*3 0.0-1.0 Automated eosinophil count 0.3 10*3/uL 0.0-0.3 Automated blood basophil count (count/volume) 0.0 10*3/uL 0.0-0.1 Blood manual differential performed detection - 11/03/18 12:50 Blood monocytes/100 leukocytes 7 % NRG Manual blood segmented neutrophils/100 leukocytes 60 % NRG Blood band neutrophils/100 leukocytes 0 % NRG Manual blood lymphocytes/100 leukocytes 27 % NRG Manual eosinophils/100 leukocytes in nose 6 % NRG Manual blood basophils/100 leukocytes 0 % NRG Blood erythrocyte morphology finding identification NORMAL NRG Automated reticulocyte percentage - 11/03/18 12:50 Blood reticulocytes count (number/volume) 36 10*9/L 24- 90 Blood reticulocytes/100 erythrocytes 0.97 % 0.50-2.40 CBC with Auto Diff - 12/03/18 14:55 Baso% 0.30 % 0.00-2.50 Eos 0.1 K/uL 0.0-0.7 Eos% 3.8 % 0.0-7.0 Hct 30.6 % 42.0-52.0 Hgb 10.1 g/dL 14.0-17.0 Lym 0.28 K/uL 0.60-3.40 Lym% 7.5 % 10.0-50.0 MCH 32.5 pg 27.0-31.2 MCHC 33.0 g/dL 32.0-36.0 MCV 98.4 fL 80.0-97.0 Dundy% 4.9 % 0.0-12.0 MPV 10.0 fL 7.4-10.0 Alcira% 83.5 % 37.0-80.0 Plt 108 K/uL 150-400 RBC 3.11 M/uL 4.20-5.40 RDW 14.1 % 11.6-14.8 WBC 3.71 K/uL 5.00-10.00 Alcira 3.10 K/uL 2.00-6.90 Dundy 0.2 K/uL 0.0-0.9 Baso 0.0 K/uL 0.0-0.2 Lactic Acid - 12/03/18 14:55 Lactic Acid 11.7 mg/dL 4.5-19.8 Blood Culture - 12/03/18 14:55 PRELIM CULTURE RESULTS Blood Culture Negative, No Growth Day 1 FINAL CULTURE RESULTS Blood Culture Negative, No Growth Day 5 MEDIA PLATED Blood Culture Media Position C44 CULTURE SOURCE rt. [id number]\ Blood Culture - 12/03/18 17:01 PRELIM CULTURE RESULTS Blood Culture Negative, No Growth Day 1 FINAL CULTURE RESULTS Blood Culture Negative, No Growth Day 5 MEDIA PLATED Blood Culture Media Position C48 CULTURE SOURCE LT. [id number]\ Vancomycin Trough - 12/05/18 05:40 Vanco Trough 10.6 ug/mL 10.0-20.0 Comprehensive Metabolic Panel - 12/06/18 05:00 Albumin 3.2 g/dL 3.6-5.1 ALP 87 U/L 35-130 ALT 108 U/L 6-45 Anion Gap 12 6-14 AST 49 U/L 2-40 BUN 20 mg/dL 5-25 Calcium 6.6 mg/dL 8.3-10.4 Chloride 111 mmol/L 95-114 CO2 21 mEq/L 22-33 Creat 0.98 mg/dL 0.50-1.50 eGFR 73 mL/min/1.73m2 >59 Globulin 2.3 g/dL 2.3-3.5 Glucose 147 mg/dL 70-110 Osmo 294 280-295 Potassium 4.1 mmol/L 3.5-5.3 Sodium 140 mmol/L 134-148 TBil 0.2 mg/dL 0.2-1.2 TP 5.5 g/dL 6.0-8.3 Vancomycin Trough - 12/07/18 07:00 Vanco Trough 16.8 ug/mL 10.0-20.0 Comprehensive Metabolic Panel - 12/08/18 05:57 Albumin 3.4 g/dL 3.6-5.1 ALP 102 U/L 35-130 ALT 128 U/L 6-45 Anion Gap 15 6-14 AST 34 U/L 2-40 BUN 23 mg/dL 5-25 Calcium 6.8 mg/dL 8.3-10.4 Chloride 106 mmol/L 95-114 CO2 24 mEq/L 22-33 Creat 1.01 mg/dL 0.50-1.50 eGFR 70 mL/min/1.73m2 >59 Globulin 2.5 g/dL 2.3-3.5 Glucose 174 mg/dL 70-110 Osmo 298 280-295 Potassium 3.9 mmol/L 3.5-5.3 Sodium 141 mmol/L 134-148 TBil 0.4 mg/dL 0.2-1.2 TP 5.9 g/dL 6.0-8.3 Comprehensive Metabolic Panel - 12/09/18 05:45 Albumin 2.8 g/dL 3.6-5.1 ALP 84 U/L 35-130 ALT 90 U/L 6-45 Anion Gap 11 6-14 AST 24 U/L 2-40 BUN 22 mg/dL 5-25 Calcium 6.4 mg/dL 8.3-10.4 Chloride 107 mmol/L 95-114 CO2 27 mEq/L 22-33 Creat 0.88 mg/dL 0.50-1.50 eGFR 82 mL/min/1.73m2 >59 Globulin 1.9 g/dL 2.3-3.5 Glucose 112 mg/dL 70-110 Osmo 295 280-295 Potassium 3.8 mmol/L 3.5-5.3 Sodium 141 mmol/L 134-148 TBil 0.3 mg/dL 0.2-1.2 TP 4.7 g/dL 6.0-8.3 Comprehensive Metabolic Panel - 12/10/18 05:45 Albumin 2.8 g/dL 3.6-5.1 ALP 82 U/L 35-130 ALT 83 U/L 6-45 Anion Gap 11 6-14 AST 25 U/L 2-40 BUN 18 mg/dL 5-25 Calcium 6.4 mg/dL 8.3-10.4 Chloride 108 mmol/L 95-114 CO2 26 mEq/L 22-33 Creat 0.81 mg/dL 0.50-1.50 eGFR 90 mL/min/1.73m2 >59 Globulin 1.9 g/dL 2.3-3.5 Glucose 98 mg/dL 70-110 Osmo 293 280-295 Potassium 3.7 mmol/L 3.5-5.3 Sodium 141 mmol/L 134-148 TBil 0.3 mg/dL 0.2-1.2 TP 4.7 g/dL 6.0-8.3 Comprehensive Metabolic Panel - 12/11/18 05:20 Albumin 2.8 g/dL 3.6-5.1 ALP 80 U/L 35-130 ALT 88 U/L 6-45 Anion Gap 11 6-14 AST 24 U/L 2-40 BUN 18 mg/dL 5-25 Calcium 6.7 mg/dL 8.3-10.4 Chloride 106 mmol/L 95-114 CO2 27 mEq/L 22-33 Creat 0.90 mg/dL 0.50-1.50 eGFR 80 mL/min/1.73m2 >59 Globulin 2.0 g/dL 2.3-3.5 Glucose 90 mg/dL 70-110 Osmo 291 280-295 Potassium 3.8 mmol/L 3.5-5.3 Sodium 140 mmol/L 134-148 TBil 0.4 mg/dL 0.2-1.2 TP 4.8 g/dL 6.0-8.3 Comprehensive Metabolic Panel - 12/16/18 09:59 Albumin 3.1 g/dL 3.6-5.1 ALP 82 U/L 35-130 ALT 34 U/L 6-45 Anion Gap 18 6-14 AST 19 U/L 2-40 BUN 15 mg/dL 5-25 Calcium 8.5 mg/dL 8.3-10.4 Chloride 103 mmol/L 95-114 CO2 18 mEq/L 22-33 Creat 1.14 mg/dL 0.50-1.50 eGFR 61 mL/min/1.73m2 >59 Globulin 2.3 g/dL 2.3-3.5 Glucose 137 mg/dL 70-110 Osmo 282 280-295 Potassium 3.8 mmol/L 3.5-5.3 Sodium 135 mmol/L 134-148 TBil 0.3 mg/dL 0.2-1.2 TP 5.4 g/dL 6.0-8.3 Encounters ACCT No. Visit Date/Time Discharge Status Pt. Type Provider Facility Loc./Unit Complaint [id number] 12/16/2018 09:36:00 12/16/2018 11[facility]00:[id number]06[facility]2018 13:00:00 12/11/2018 11:45:00 [id number] 12/03/2018 14:38:00 12/06/2018 13:00:00 DIS Inpatient [facility] MED-SURG [id number] 10/11/2018 14:18:00 10/11/2018 23:59:00 DIS Outpatient EMANUEL ALEJANDRA [id number] 10/11/2018 00:00:00 10/11/2018 23:59:00 DIS Outpatient Steven Marin [id number] 08/24/2017 14:31:00 08/24/2017 16:03:00 DIS Outpatient Víctor [facility] ER [id number] 03/15/2017 12:05:00 03/15/2017 13:04:00 DIS Outpatient Dileep Ramires [id number] 03/12/2017 17:27:00 03/12/2017 19:39:00 DIS Outpatient Keyla [facility] ER [id number] 03/10/2017 11:55:00 03/10/2017 12:45:00 DIS Outpatient Krunal Venegas [id number] 08/24/2017 14:44:48 Document Registration [id number] 12/22/2018 11:42:00 12/22/2018 23:59:59 CLS Outpatient DERECK CISNEROS LANGUAGE TRANSLATOR [facility] CARD DIZZINESS [id number] 12/19/2018 12:50:00 12/19/2018 23:59:59 CLS Outpatient FLOR BERUMEN [facility] ONC [id number] 12/13/2018 11:34:00 12/13/2018 23:59:59 CLS Outpatient DERECK CISNEROS LANGUAGE TRANSLATOR [facility] RAD R42,G44.009 [id number] 12/13/2018 11:28:00 12/13/2018 23:59:59 CLS Preadmit DERECK CISNEROS LANGUAGE TRANSLATOR [facility] RAD DIZZINESS [id number] 12/01/2018 10:42:00 12/01/2018 23:59:59 CLS Outpatient JAMAICAFLOR ELLIOTT Claudette [facility] RAD [id number] 11/27/2018 11:38:00 11/27/2018 23:59:59 CLS Outpatient VICK WILSON PLANOGRAMMER [facility] RAD [id number] 11/03/2018 10:56:00 11/03/2018 17:00:00 DIS Outpatient J[place] FLOR Wilkins [facility] RAD METASTATIC BONE TUMOR [id number] 10/24/2018 11:46:00 10/24/2018 23:59:59 CLS Outpatient CARLENE IBARRA DO [facility] RAD LESION OF LUMBAR SPINE, ABNORMAL MRI [id number] 10/17/2018 13:45:00 10/17/2018 23:59:59 CLS Outpatient DERECK CISNEROS LANGUAGE TRANSLATOR [facility] RAD ALLERGIC RHINITIS [id number] 09/27/2018 09:56:00 09/27/2018 23:59:59 CLS Preadmit MARTIN MARIN MD 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 RAD M54.5 [id number] 10/05/2017 13:02:00 10/05/2017 23:59:59 CLS Outpatient DERECK CISNEROS LANGUAGE TRANSLATOR [facility] RAD J18.9 J45.909 J42 [id number] 08/25/2017 11:50:00 08/27/2017 11:00:00 DIS Inpatient RANJIT GAUTAM DO [facility] 4TH PNEUMONIA [id number] 07/14/2017 14:34:00 07/14/2017 23:59:59 CLS Outpatient MARTIN AMRIN MD [facility] RAD HX OF TIA [id number] 07/09/2017 10:36:00 07/09/2017 13:10:00 DIS Emergency DAVID LEHMAN APRN [facility] ER DIZZINESS, TROUBLE WALKING [id number] 06/13/2017 14:06:00 06/13/2017 23:59:59 CLS Outpatient MARTIN MARIN MD [facility] RAD M79.604 M79.89 [id number] 03/08/2017 07:14:00 03/08/2017 16:30:00 DIS Outpatient KRUNAL VENEGAS MD [facility] SDC ENLARGED PROSTATE [id number] 03/03/2017 12:41:00 03/03/2017 14:37:00 DIS Outpatient KRUNAL VENEGAS MD [facility] PREOP ENLARGED PROSTATE [id number] 08/09/2016 14:01:00 08/09/2016 23:59:59 CLS Outpatient KRUNAL VENEGAS MD [facility] RAD HISTORY OF LT RENAL CELL CARCINOMA [id number] 12/07/2015 13:25:00 12/07/2015 15:56:00 DIS Emergency DAVID LEHMAN APRN [facility] ER DIFFICULTY URINATING [id number] 11/03/2015 17:54:00 11/03/2015 21:15:00 DIS Emergency JENI HAN DO [facility] ER NOT URINATING [id number] 10/27/2015 12:11:00 10/27/2015 23:59:59 CLS Outpatient MARTIN MARIN MD [facility] RAD CHRONIC LUMBAR SPINE PAIN [id number] 10/24/2015 11:36:00 10/24/2015 14:06:00 DIS Emergency ANA GONZALES MD [facility] ER BACK PAIN [id number] 07/03/2015 12:30:00 07/03/2015 23:59:59 CLS Outpatient MARTIN MARIN MD [facility] RAD LIVER MASS [id number] 06/27/2015 08:55:00 06/27/2015 23:59:59 CLS Outpatient THEO KINNEY, KRUNAL Harden [facility] RAD LEFT RENAL CA [id number] 10/24/2014 13:51:00 10/24/2014 23:59:59 CLS Outpatient MARTIN MARIN MD [facility] RAD HEADACHE,DIZZINESS,HEAD PRESSURE [id number] 10/24/2014 11:27:00 10/24/2014 23:59:59 CLS Outpatient MARTIN MARIN MD [facility] LAB PED PRESSURE, HEADACHE, DIZZINESS [id number] 01/08/2014 11:29:00 01/08/2014 23:59:59 CLS Outpatient CARLENE IBARRA DO [facility] RAD BRONCHITIS,COUGH, FOLLOW UP [id number] 12/27/2013 13:46:00 12/27/2013 23:59:59 CLS Outpatient CARLENE IBARRA DO [facility] RT BRONCHITIS, COUGH [id number] 11/22/2013 10:49:00 11/22/2013 23:59:59 CLS Outpatient CARLENE IBARRA DO [facility] RAD BRONCHITIS, COUGH [id number] 11/15/2013 16:44:00 11/15/2013 23:59:59 CLS Outpatient SOHA KINNEY, FERNANDO Harden [facility] LAB COUGH [id number] 11/12/2013 11:47:00 11/12/2013 23:59:59 CLS Outpatient MARTIN MARIN MD [facility] RAD COUGH,FEVER [id number] 06/19/2013 10:21:00 06/19/2013 23:59:59 CLS Outpatient THEO KINNEY, KRUNAL Harden [facility] RAD LEFT RENAL CA [id number] 12/26/2018 18:18:00 ACT Emergency TRACY CR DO [facility] ER FEVER / SOA [id number] 12/22/2012 11:50:00 Document Registration [id number] 06/09/2012 10:28:00 Document Registration [id number] 12/14/2011 10:00:00 Document Registration [id number] 12/13/2011 10:00:00 Document Registration [id number] 10/29/2011 09:53:00 Document Registration [id number] 08/12/2011 09:33:00 Document Registration [id number] 07/14/2011 15:49:00 Document Registration [id number] 07/05/2011 08:52:00 Document Registration [id number] 06/29/2011 09:44:00 Document Registration [id number] 06/07/2011 13:41:00 Document Registration [id number] 05/19/2011 14:45:00 Document Registration [id number] 03/12/2011 10:53:00 Document Registration [id number] 03/04/2011 13:52:00 Document Registration [id number] 10/09/2010 10:53:00 Document Registration [id number] 10/08/2010 08:08:00 Document Registration [id number] 09/30/2010 09:30:00 Document Registration [id number] 09/28/2010 11:24:00 Document Registration
[2018-12-26 20:02] LABS: ABG BASE EXCESS -0.4 MMOL/L (-2.5-2.5); ABG OXYGEN SATURATION 97 % (94-100); ABG PCO2 39 MMHG (35-45); ABG PH 7.41 (7.37-7.43); ABG PO2 112 MMHG (79-93); ABG TCO2 24.3 MMOL/L (21.0-31.0)
[2018-12-26 20:03] LABS: ALLENS TEST POSITIVE
[2018-12-26 20:04] LABS: INSPIRED O2 3L; PATIENT TEMP 102.8; VENTILATOR NO
[2018-12-26 20:23] VITALS: BP 129/58
[2018-12-26] MEDS ORDERED: ACETAMINOPHEN 500 MG TAB (TYLENOL) PO ONE (20:30)
[2018-12-26 20:43] VITALS: BP 184/78
[2018-12-26 21:00] VITALS: BP 152/71
[2018-12-26] MEDS ORDERED: ONDANSETRON 4 MG/2 ML (SDV) Z0FRAN IV PRN (21:30)
[2018-12-26] MEDS ORDERED: fentaNYL INJECTION 100 MCG/2 ML AMP IV PRN (21:30)
[2018-12-26] MEDS ORDERED: ACETAMINOPHEN 500 MG TAB (TYLENOL) PO PRN (21:30)
[2018-12-26] MEDS ORDERED: VANCOMYCIN 1 GM/NS 250 ML IVPB IV ONE ×2 (21:30)
[2018-12-26] MEDS ORDERED: PIPERACILLIN/TAZO 4.5 GM/NS 100 ML IV ONE ×2 (21:30)
[2018-12-26 22:00] VITALS: BP 150/95
[2018-12-26] MEDS ORDERED: NS (IVPB) 100 ML ONE (22:26)
[2018-12-26] MEDS ORDERED: PIPERACILLIN/TAZO 4.5 GM VIAL (ZOSYN) IV ONE (22:26)
[2018-12-26] MEDS: NS IV 1000 ML 1,000 ML IV SCH (22:42)
[2018-12-26 23:00] VITALS: BP 145/67
[2018-12-27] VITALS (14 sets, daily range): BP systolic 143–166; BP diastolic 59–91
[2018-12-27 03:14] LABS: BACTERIA,URINE NEGATIVE /HPF; BILIRUBIN,URINE NEGATIVE (NEGATIVE); CLARITY,URINE CLEAR; COLOR,URINE YELLOW; GLUCOSE, URINE (UA) 2+ (NEGATIVE); KETONES,URINE NEGATIVE (NEGATIVE); LEUKOCYTE ESTERASE ,URINE NEGATIVE (NEGATIVE); NITRITE,URINE NEGATIVE (NEGATIVE); PH,URINE 7 (5-9); PROTEIN,URINE NEGATIVE (NEGATIVE); SQUAMOUS EPITHELIAL CELL,UR RARE /HPF; UROBILINOGEN,URINE NORMAL (NORMAL)
[2018-12-27] MEDS ORDERED: PIPERACILLIN/TAZO 4.5 GM VIAL (ZOSYN) IV ONE (03:52)
[2018-12-27] MEDS ORDERED: NS (IVPB) 100 ML ONE (03:52)
[2018-12-27] MEDS ORDERED: RT-ALBUTEROL/IPRATROPIUM 3 ML (DUONEB) VIAL INH PRN (04:00)
[2018-12-27] MEDS: PIPERACILLIN/TAZO 4.5 GM/NS 100 ML IV SCH ×6 (04:03→20:04)
[2018-12-27 04:52] LABS: BASOPHILS % (AUTO) 0 % (0-10); EOSINOPHILS # (AUTO) 0.1 10^3/uL (0.0-0.3); EOSINOPHILS % (AUTO) 1 % (0-10); HEMATOCRIT 30 % (40-54); HEMOGLOBIN 9.6 G/DL (13.3-17.7); LYMPHOCYTES # (AUTO) 0.3 X 10^3 (1.0-4.0); LYMPHOCYTES % (AUTO) 7 % (12-44); MEAN CORPUSCULAR HEMOGLOBIN 31 PG (25-34); MEAN CORPUSCULAR HGB CONC 33 G/DL (32-36); MEAN CORPUSCULAR VOLUME 95 FL (80-99); MEAN PLATELET VOLUME 10.7 FL (7.4-10.4); MONOCYTES # (AUTO) 0.1 X 10^3 (0.0-1.0); MONOCYTES % (AUTO) 2 % (0-12); NEUTROPHILS # (AUTO) 3.9 X 10^3 (1.8-7.8); NEUTROPHILS % (AUTO) 89 % (42-75); PLATELET COUNT 165 10^3/uL (130-400); RED CELL DISTRIBUTION WIDTH 14.7 % (10.0-14.5); WHITE BLOOD COUNT 4.3 10^3/uL (4.3-11.0)
[2018-12-27 05:07] LABS: BAND NEUTROPHILS 6 %; BASOPHILS % (MANUAL) 0 %; EOSINOPHILS % (MANUAL) 1 %; LYMPHOCYTES % (MANUAL) 8 %; MONOCYTES % (MANUAL) 1 %; NEUTROPHILS % (MANUAL) 84 %; POLYCHROMASIA SLIGHT
[2018-12-27 05:08] LABS: ANISOCYTOSIS SLIGHT; ROULEAUX SLIGHT
[2018-12-27 05:33] LABS: ALANINE AMINOTRANSFERASE 27 U/L (0-55); ALBUMIN 3.1 GM/DL (3.2-4.5); ALKALINE PHOSPHATASE 89 U/L (40-136); BILIRUBIN,TOTAL 0.4 MG/DL (0.1-1.0); BUN/CREATININE RATIO 13; CALCIUM 7.8 MG/DL (8.5-10.1); CARBON DIOXIDE 20 MMOL/L (21-32); CHLORIDE 108 MMOL/L (98-107); CREATININE SERUM 0.99 MG/DL (0.60-1.30); GFR ESTIMATED > 60; GLUCOSE 185 MG/DL (70-105); PHOSPHORUS 2.7 MG/DL (2.3-4.7); POTASSIUM 4.1 MMOL/L (3.6-5.0); SODIUM 139 MMOL/L (135-145); TOTAL PROTEIN 4.8 GM/DL (6.4-8.2)
--- NOTE | 2018-12-27 05:43 | Pulmonary Consultation ---
History of Present Illness History of Present Illness Date of Consultation 12/27/18 05:33 Time Seen by Provider: 05:34 Date of Admission History of Present Illness 83yo with recent hospitalization at [facility] secondary to pneumonia 1 wk ago, asthma , and multiple myeloma presented secondary to worsening SOB, nonproductive cough , and fever (102) upon arrival. PT is currently undergoing chemotherapy. He started chemotherapy 2wks ago. Pt was at [facility] from 12/03-12/11 and was sent home with oral Abx. While at [facility] pt was treated with Vancomycin and meropenem. PT was also on Acyclovir recently for oral herpetic stomatitis. Family at bedside. They state they do not want to continue chemotherapy. I am consulted for pulmonary management. Allergies and Home Medications Allergies Coded Allergies: carisoprodol (Verified Allergy, Intermediate, SHAKING, AGITATION, 08/25/17 ) cefepime (Verified Allergy, Mild, Rash, 12/27/18) possible reaction after receiving cefepime IV finasteride (Verified Allergy, Mild, rash, 12/27/18) Home Medications Albuterol Sulfate 2.5 Mg/3 Ml Vial.neb, 2.5 MG NEB TID PRN for SHORTNESS OF BREATH, (Reported) Albuterol Sulfate 1 Puff Puff, 2 PUFF INH QID PRN for SHORTNESS OF BREATH, ( Reported) Amitriptyline HCl 25 Mg Tablet, 25 MG PO HS, (Reported) Amlodipine Besylate 5 Mg Tablet, 5 MG PO DAILY, (Reported) Bortezomib 3.5 Mg/Vial Soln, 2.2 MG SC We, (Reported) Cetirizine HCl 10 Mg Tablet, 10 MG PO DAILY, (Reported) Clonidine HCl 0.1 Mg Tablet, 0.1 MG PO DAILY, (Reported) Dexamethasone 4 Mg Tablet, 20 MG PO UD, (Reported) TAKES 5 (4MG) TABLETS WEEKLY WITH CHEMO Dulaglutide 0.75 Mg/0.5 Ml Pen.injctr, 0.75 MG SQ We, (Reported) Famotidine 20 Mg Tablet, 20 MG PO HS, (Reported) Hydrocodone/Acetaminophen 1 Each Tablet, 1 TAB PO Q4H PRN for PAIN-MODERATE, ( Reported) Lenalidomide 15 Mg Capsule, UD, (Reported) TAKES FOR 3 WEEKS THEN OFF FOR 1 WEEK THEN REPEAT Metformin HCl 500 Mg Tablet, 500 MG PO BID, (Reported) Mometasone/Formoterol 13 Gm Hfa.aer.ad, 1 PUFF INH BID, (Reported) Montelukast Sodium 10 Mg Tablet, 10 MG PO HS, (Reported) Ondansetron HCl 8 Mg Tablet, 8 MG PO Q8H PRN for NAUSEA/VOMITING-1ST LINE, ( Reported) Tamsulosin HCl 0.4 Mg Cap, 0.4 MG PO BID, (Reported) Zolpidem Tartrate 10 Mg Tablet, 10 MG PO HS, (Reported) Past Hqmgawr-Wwuzjq-Jleprt Hx Patient Social History Alcohol Use: Denies Use Recreational Drug Use: No Smoking Status: Former Smoker Type Used: Cigarettes Former Smoker, Quit: Aug 25, 1981 2nd Hand Smoke Exposure: No Recent Foreign Travel: No Contact w/Someone Who Travel: No Recent Infectious Disease Expo: No Recent Hopitalizations: Yes (pne in [place]) Physical Abuse: No Sexual Abuse: No Mistreated: No Fear: No Immunizations Up To Date PED Vaccines UTD: No Date of Pneumonia Vaccine: Jun 23, 2015 Date of Influenza Vaccine: Jul 20, 2017 Seasonal Allergies Seasonal Allergies: Yes Past Medical History Surgeries: Yes (LAMINECTOMY, KIDNEY LEFT REMOVAL, UROFIFT) Nephrectomy, Orthopedic Respiratory: Yes Asthma, Pneumonia, Chronic Bronchitis Currently Using CPAP: No Currently Using BIPAP: No Cardiac: Yes High Cholesterol, Hypertension Neurological: Yes (TREMORS) Reproductive Disorders: No Sexually Transmitted Disease: No HIV/AIDS: No Genitourinary: Yes Benign Prostatic Hyperpl, Prostate Problems Gastrointestinal: Yes Gastroesophageal Reflux Musculoskeletal: Yes (LEG/FOOT PAIN) Arthritis, Chronic Back Pain Endocrine: Yes Diabetes, Non-Insulin dep HEENT: Yes Loss of Vision: Denies Hearing Impairment: Bilateral Hearing Aide Cancer: Yes (LEFT KIDNEY REMOVED 2010; MULTIPLE MYELOMA) Kidney Did You Recieve Any Treatments: Yes What Type of Treatment Did You: Chemotherapy, Surgical Intervention Psychosocial: No Integumentary: No Blood Disorders: No Adverse Reaction/Blood Tranf: No (N/A) Family Medical History Cardiovascular disease 19 MOTHER G8 BROTHER G8 BROTHER Coronary thrombosis 19 MOTHER G8 SISTER G8 SISTER Hypertension 19 MOTHER No Pertinent Family Hx Review of Systems Time Seen by Provider: 07:38 Constitutional: Fever, Chills, Sweats, Weakness, Malaise, Other Eyes: No: Pain, Vision change, Conjunctivae inflammation, Eyelid inflammation, Other, Redness ENT: Nose congestion; No: Ear pain, Ear discharge, Nose pain, Nose discharge, Mouth pain, Mouth swelling, Throat pain, Throat swelling, Other Respiratory: Cough, Dry, Shortness of breath, SOB with excertion; No: Wheezing , Hemoptysis, Pleuritic Pain Cardiovascular: Orthopnea, Paroxysmal Noc. Dyspnea, Lt Headedness; No: Chest Pain, Palpitations, Edema, Other Gastrointestinal: No: Nausea, Vomiting, Abdominal Pain, Diarrhea, Constipation , Melena, Hematochezia, Other Neurological: Weakness Sepsis Event Evaluation Height, Weight, BMI Height: 5'11.00" Weight: 151lbs. 6.0oz. 68.961188aw; 21.1 BMI Method:Estimated Exam Exam Vital Signs Date Time Temp Pulse Resp B/P (MAP) Pulse Ox O2 Delivery O2 Flow Rate FiO2 12/27/18 05:00 86 13 146/63 (90) 93 Nasal Cannula 1.00 12/27/18 04:00 89 18 144/91 (108) 93 Nasal Cannula 1.00 12/27/18 04:00 92 Nasal Cannula 2.00 12/27/18 04:00 98.0 Nasal Cannula 1.00 12/27/18 03:48 91 12/27/18 03:42 102 92 12/27/18 03:00 86 18 163/73 (103) 94 Nasal Cannula 2.00 12/27/18 02:00 93 18 147/68 (94) 94 Nasal Cannula 2.00 12/27/18 02:00 Nasal Cannula 2.00 12/27/18 01:00 89 18 146/70 (95) 97 Nasal Cannula 3.00 12/27/18 00:00 95 18 152/80 (104) 97 Nasal Cannula 3.00 12/27/18 00:00 98.7 12/27/18 00:00 92 Nasal Cannula 2.00 12/26/18 23:59 Nasal Cannula 2.00 12/26/18 23:00 100 18 145/67 (93) 94 Nasal Cannula 3.00 12/26/18 22:24 Nasal Cannula 3.00 12/26/18 22:00 101 20 150/95 (113) 90 Nasal Cannula 2.00 12/26/18 22:00 98.5 12/26/18 21:00 101 20 152/71 (98) 94 Nasal Cannula 2.00 12/26/18 20:59 100 12/26/18 20:58 100.1 12/26/18 20:43 100.1 111 22 184/78 (113) 92 Nasal Cannula 2.00 12/26/18 20:30 96 Nasal Cannula 2.00 12/26/18 20:26 100.0 98 18 129/58 (81) 99 12/26/18 20:23 100.0 98 18 129/58 (81) 99 12/26/18 19:58 Nasal Cannula 3.00 12/26/18 18:58 98 Nasal Cannula 3.00 12/26/18 18:53 102.8 110 18 150/70 (96) 12/26/18 18:52 Nasal Cannula 2.00 12/26/18 18:31 102.8 110 20 150/70 (96) I & O 12/27/18 07:00 Intake Total 2780 ml Output Total 1450 ml Balance 1330 ml Height & Weight Height: 5'11.00" Weight: 151lbs. 6.0oz. 68.070411xw; 21.1 BMI Method:Estimated General Appearance: Anxious, Mild Distress HEENT: PERRL/EOMI, Normal ENT Inspection, Pharynx Normal Neck: Full Range of Motion, Normal Inspection, Non Tender, Supple Respiratory: Chest Non Tender, Crackles, Decreased Breath Sounds Cardiovascular: Regular Rate, Rhythm, No Edema, No Gallop, Normal Peripheral Pulses Capillary Refill: Less Than 3 Seconds Gastrointestinal: normal bowel sounds, non tender, soft Extremity: Normal Capillary Refill, Normal Inspection Neurologic/Psychiatric: Alert, Oriented x3 Skin: Normal Color, Warm/Dry Lymphatic: No Adenopathy Results Lab Laboratory Tests 12/26/18 18:58 12/27/18 03:15 Assessment/Plan Assessment/Plan Pneumonia - HCAP - with iatrogenic immunocompromise -Continue vanco, zosyn -Obtain cultures from [facility] -Luong cultures pending -MRSA swab pending -Influenza is negative -Check urine strep and legionella Ag -Check respiratory viral panel -Pt may need bronchoscopy if unable to obtain sputum -CXR reviewed and shows L>R infiltrates -BNP is normal and procalcitonin .17 Multiple Myoloma -Oncology is following Solitary kidney Hx of renal cell carcinoma DM, HTN CARLENE IBARRA DO Dec 27, 2018 05:43
[2018-12-27] MEDS ORDERED: MAGNESIUM 1 GM/100 ML IVPB 100 ML IV SCH (06:00)
[2018-12-27] MEDS ORDERED: KCL 20 MEQ TAB (K-DUR) PO SCH (06:00)
[2018-12-27] MEDS ORDERED: methylPREDNISolone 125 MG (Solu-MEDROL) VIAL IV ONE (06:00)
[2018-12-27] MEDS ORDERED: POTASSIUM CL 10MEQ/50ML IVPB 50 ML IV SCH (06:00)
[2018-12-27] MEDS: inSUlin ASPART (NovoLOG) 1 UNIT/0.01 ML (CHARGE PER UNIT) SC SCH ×4 (06:04→20:40)
[2018-12-27] MEDS: ENOXAPARIN 40 MG/0.4 ML (LOVENOX) SYR SC SCH (06:45)
[2018-12-27] MEDS: RT-ALBUTEROL/IPRATROPIUM 3 ML (DUONEB) VIAL INH SCH ×3 (06:56→20:01)
--- NOTE | 2018-12-27 08:41 | Diagnostic Imaging Report ---
INDICATION: Pneumonia and hypoxia. TIME OF EXAM: 4:27 AM Correlation is made with prior study from 12/26/2018. FINDINGS: Heart size is stable. Left perihilar infiltrate has increased when compared with prior study. Right lung is clear. Pulmonary vascularity is normal. No effusion or pneumothorax is detected. IMPRESSION: Mild increased left perihilar infiltrate when compared with examination one day earlier. Dictated by: Dictated on workstation # [id number]
[2018-12-27] MEDS: PANTOPRAZOLE 40 MG (PROTONIX) TAB PO SCH (08:42)
[2018-12-27] MEDS ORDERED: ENOXAPARIN 40 MG/0.4 ML (LOVENOX) SYR SC SCH (09:00)
--- NOTE | 2018-12-27 09:17 | NUR ---
VANCOMYCIN DOSING SCR 0.99; CRCL ~ 51; VANC 1 GM GIVEN LAST NIGHT (NO BOLUS) - DOSED VANC 15 MG/KG x 68 KG ~ 1 GM Q24H START THIS AM CHECK TROUGH LEVEL 12/29 0800 HOLD DOSE AND CONTACT PHARMACY IF LEVEL IS GREATER THAN 20
--- NOTE | 2018-12-27 09:18 | History & Physical-Hospitalist ---
History of Present Illness HPI/Chief Complaint Chief compliant: SOB HPI: This is an 83yoWM known to me from [facility] admission a couple of weeks ago after being diagnosed with Multiple Myeloma on 11/08/18 required hospitalization a few days after that first chemotherapy treatment and diagnosed with pneumonia with an asthma exacerbation. He was placed on empiric antibiotics broad spectrum of Meropenem and Vancomycin and completed that on swing bed status. He maintained oxygen and Albuterol treatments at that time and was seen by Dr. Gudino, and was placed back on chemotherapy for Multiple Myeloma and he presented with SOB to the ER found to have left hilar infiltrate requiring oxygen and nebulizer treatments, and close monitoring overnight in the ICU, with broad spectrum antibiotics. He has had a rash that seems to be from the Zosyn that he was given and he has been maintained on Vancomycin. Pt has been moved to [facility], Pt appears to be declined since previously assessed [place] [facility] for the seven days I took care of him and overall family at the bedside. Source: patient, family, RN/MD Exam Limitations: no limitations Date Seen 12/27/18 Time Seen by a Provider: 10:00 Attending Physician Wesley Bain MD PCP Luis Howard MD Referring Physician Date of Admission Dec 26, 2018 at 19:55 Home Medications & Allergies Home Medications Reviewed patient Home Medication Reconciliation performed by pharmacy medication reconciliations windmill technician and/or nursing. Patients Allergies have been reviewed. Allergies Allergies Coded Allergies carisoprodol (Verified Allergy, Intermediate, SHAKING, AGITATION, 08/25/17) cefepime (Verified Allergy, Mild, Rash, 12/27/18) possible reaction after receiving cefepime IV finasteride (Verified Allergy, Mild, rash, 12/27/18) Past Axfkjcv-Ewkevi-Tfblid Hx Past Med/Social Hx: Reviewed Nursing Past Med/Soc Hx, Reviewed and Corrections made Patient Social History Marrital Status: Employed/Student: retired Alcohol Use: Denies Use Recreational Drug Use: No Smoking Status: Former Smoker Former Smoker, Quit: Aug 25, 1981 Type Used: Cigarettes 2nd Hand Smoke Exposure: No Recent Foreign Travel: No Contact w/other who traveled: No Recent Hopitalizations: Yes (pne in [place]) Recent Infectious Disease Expo: No Immunizations Up To Date Pediatric: No Date of Pneumonia Vaccine: Jun 23, 2015 Date of Influenza Vaccine: Jul 20, 2017 Seasonal Allergies Seasonal Allergies: Yes Past Medical History Surgeries: Nephrectomy, Orthopedic Respiratory: COPD, Pneumonia Currently Using CPAP: No Currently Using BIPAP: No Cardiac: High Cholesterol, Hypertension Reproductive: No Sexually Transmitted Disease: No HIV/AIDS: No Genitourinary: Benign Prostatic Hyperpl, Prostate Problems Gastrointestinal: Gastroesophageal Reflux Musculoskeletal: Arthritis, Chronic Back Pain Endocrine: Diabetes, Non-Insulin dep Loss of Vision: Denies Hearing Impairment: Bilateral Hearing Aide Cancer: Kidney Did You Recieve Any Treatments: Yes What Type of Treatment Did You: Chemotherapy, Surgical Intervention Cancer: MM 11/08/18 History of Blood Disorders: No Adverse Reaction to Blood Thomas: No (N/A) Family History Reviewed and Corrections made Cardiovascular disease 19 MOTHER G8 BROTHER G8 BROTHER Coronary thrombosis 19 MOTHER G8 SISTER G8 SISTER Hypertension 19 MOTHER No Pertinent Family Hx Review of Systems Constitutional: see HPI, chills, diaphoresis, dizziness, fever, malaise, weakness EENTM: no symptoms reported Respiratory: cough, dyspnea on exertion, short of breath, wheezing Gastrointestinal: no symptoms reported Genitourinary: no symptoms reported Musculoskeletal: no symptoms reported Skin: no symptoms reported Psychiatric/Neurological: No Symptoms Reported All Other Systems Reviewed Negative Unless Noted: Yes Physical Exam Physical Exam Vital Signs Vital Signs - First Documented 12/26/18 12/26/18 12/26/18 18:31 18:52 18:58 Temp 102.8 Pulse 110 Resp 20 B/P (MAP) 150/70 (96) Pulse Ox 98 O2 Delivery Nasal Cannula O2 Flow Rate 2.00 Capillary Refill : Less Than 3 Seconds Height, Weight, BMI Height: 5'11.00" Weight: 151lbs. 6.0oz. 68.082144am; 21.1 BMI Method:Estimated General Appearance: WD/WN, Chronically ill, Mild Distress, Thin Eyes: Right Eye Normal Inspection, Right Eye PERRL HEENT: PERRL/EOMI, TMs Normal, Normal ENT Inspection, Pharynx Normal, Moist Mucous Membranes Neck: Full Range of Motion, Normal Inspection, Non Tender Respiratory: Chest Non Tender, No Accessory Muscle Use, No Respiratory Distress , Decreased Breath Sounds, Wheezing Cardiovascular: Regular Rate, Rhythm, No Edema, No Gallop, No JVD, No Murmur, Normal Peripheral Pulses Gastrointestinal: Normal Bowel Sounds, No Organomegaly, No Pulsatile Mass, Non Tender, Soft Back: Normal Inspection, No CVA Tenderness, No Vertebral Tenderness Extremity: Normal Capillary Refill, Normal Inspection, Normal Range of Motion, Non Tender, No Calf Tenderness, No Pedal Edema Neurologic/Psychiatric: Alert, Oriented x3, No Motor/Sensory Deficits, Normal Mood/Affect Skin: Normal Color, Warm/Dry Lymphatic: No Adenopathy Results Results/Procedures Labs Laboratory Tests 12/26/18 18:58 12/27/18 03:15 Patient resulted labs reviewed. 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 in past h/o urinary retention managed by Dr Cortes DM HTN CRI Plan: Abx O2 Nebs Home meds Oncology appreciated Admission Status: Inpatient Order (span 2 midnights) Reason for Inpatient Admission: Left hilar pneumonia in ummunosuppressed patient will need 4 days Diagnosis/Problems Diagnosis/Problems (1) Pneumonia Status: Acute Qualifiers: Pneumonia type: due to unspecified organism Laterality: left Lung location: upper lobe of lung Qualified Codes: J18.1 - Lobar pneumonia, unspecified organism (2) Hypoxia Status: Acute (3) Solitary kidney Status: Chronic (4) History of renal cell carcinoma Status: Chronic (5) Diabetes mellitus Status: Chronic Qualifiers: Diabetes mellitus type: type 2 Diabetes mellitus detention insulin use: without termite treater helper use Diabetes mellitus complication status: with unspecified complications Qualified Codes: E11.8 - Type 2 diabetes mellitus with unspecified complications (6) Hypertension Status: Chronic Qualifiers: Hypertension type: essential hypertension Qualified Codes: I10 - Essential (primary) hypertension (7) Urinary retention due to benign prostatic hyperplasia Status: Chronic Clinical Quality Measures DVT/VTE Risk/Contraindication: Risk Factor Score Per Nursin RFS Level Per Nursing on Admit: 4+=Very High RANJIT VELA DO Dec 27, 2018 09:18
--- NOTE | 2018-12-27 09:35 | NUR ---
Pt to room 422. Received report from ARIK Trinidad. Rash noted to torso and legs. Dr. Gautam aware. Otherwise agree with previous assessment.
[2018-12-27] MEDS: VANCOMYCIN INJECTION 1,000 MG in NS (IVPB) 250 ML IV SCH (09:50)
[2018-12-27] MEDS ORDERED: ALBU2.5V4 NEB (10:49)
[2018-12-27] MEDS ORDERED: LENA15CA (10:49)
[2018-12-27] MEDS ORDERED: BORT3.5V SC (10:49)
[2018-12-27] MEDS ORDERED: ONDA8TAB12 PO (10:49)
[2018-12-27] MEDS ORDERED: HYDR-3812 PO (11:20)
[2018-12-27] MEDS ORDERED: RT-ALBUINH INH (11:20)
[2018-12-27] MEDS ORDERED: DEXA4TAB66 PO (11:20)
--- NOTE | 2018-12-27 11:20 | NUR ---
UPDATED MED REC WITH EXT MED HX WELL DISCUSSING WITH THE PATIENTS . HE NO LONGER TAKES THE FOLLOWING MEDICATIONS ON THE MED REC THAT WERE FILLED RECENTLY: 12-13-18 HCTZ 25MG DAILY #90 (STOPPED) 12-13-18 FINASTERIDE 5MG DAILY #30 (ALLERGIC) 12-11-18 LASIX 20MG DAILY AND PRN #15 (STOPPED) 11-09-18 FLOMAX 0.4MG DAILY #90 (HAS BEEN INCREASED TO BID) THEY ALSO REPORT HE TAKES DULERA IT WAS LAST FILLED BY [facility] 03-11-18 FOR THE 200/5. THEY ALSO STATE HE TAKES CLONIDINE 0.1MG DAILY, IT WAS LAST FILLED 04-16-18. HE USES ZYRTEC AND PEPCID WELL, ASSUMED IT IS OTC.
[2018-12-27] MEDS: NS IV 1000 ML 1,000 ML IV SCH (17:15)
[2018-12-27] MEDS ORDERED: ZOLPIDEM 5 MG (AMBIEN) TAB ONE (21:36)
[2018-12-27] MEDS: ZOLPIDEM 5 MG (AMBIEN) TAB PO SCH (23:17)
[2018-12-28 00:26] VITALS: BP 163/74
[2018-12-28] MEDS: NS IV 1000 ML 1,000 ML IV SCH ×2 (00:31→08:43)
--- NOTE | 2018-12-28 01:39 | CONSULTATION REPORT ---
DATE OF SERVICE: 12/27/2018 The patient is admitted to room 422. PHYSICIAN REQUESTING CONSULTATION: Wesley Bain MD. IMPRESSION: 1. An 83-year-old male admitted to the hospital with fever and left hilar infiltrates, rule out pneumonia. 2. History of recent admission to [facility] with pneumonia and treated with IV antibiotics. 3. Recent diagnosis of multiple myeloma, status post palliative radiation therapy to the lumbar spine for painful lesion. 4. Recently started on chemotherapy with VRD lite regimen. RECOMMENDATIONS: 1. Continue management of possible pneumonia with broad spectrum antibiotics as you are doing. Await culture results. 2. If unable to identify an organism, continue antibiotics for 5 days and monitor chest x-ray serially. 3. His symptoms could also be related to side effect of Revlimid, which is part of the chemotherapy regimen that he is receiving. Continue to hold chemotherapy for now. Once he recovers, we will proceed with chemotherapy without the Revlimid. 4. We will follow the patient with you. BRIEF HISTORY: The patient is an 83-year-old male who was recently diagnosed with multiple myeloma with significant low back and right hip pain with a destructive lesion at L5/S1. He completed palliative radiation therapy to this area and started on chemotherapy with VRD lite regimen on 11/27/2018. He developed urinary retention and fever on 12/01/2018 requiring a Lopez catheter placement. Same day, he was admitted to [facility] with fever and lung infiltrate and was treated with antibiotics for a few days and discharged home. Following this, he resumed chemotherapy on 12/20/2018 and presented to the emergency room yesterday with fever and was found to have a left hilar infiltrate. Cultures were obtained and he was admitted to the hospital. Chemotherapy treatment was discontinued during both hospitalizations. Consultation was requested with oncology for concurrent care. PAST MEDICAL HISTORY: Significant for multiple myeloma diagnosed in late October 2018. He has hypertension for more than 10 years. Acid peptic symptoms requiring either H2 blockers or proton pump inhibitors for long time. He underwent a left nephrectomy in 2010 for a left kidney mass, which was benign. 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 History of nocturia and underwent a UroLift in 2017. History of COPD diagnosed in 2010 and on bronchodilators. SOCIAL HISTORY: The patient is and lives near [place], [place]. He has two children, son who lives in [place] and a daughter who lives close by. He also has a stepdaughter who lives close by. 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 He smoked up to a pack of cigarettes for 27 years and quit in 1981. No significant alcohol or other recreational drug use. FAMILY HISTORY: Significant for his brother who was diagnosed with CML while in his late 70s. No other malignancies in the family that the patient knows of. There is significant history of hypertension and coronary artery disease in his family. PHYSICAL EXAMINATION: GENERAL: Today showed an elderly male, well-developed and nourished, awake and oriented, mild distress due to the paroxysmal cough. VITAL SIGNS: Temperature was 98.6, pulse rate of 90, respirations 18, blood pressure 153/65 with oxygen saturation of 95% on 1 liter of oxygen by nasal cannula. HEENT: Normocephalic with male pattern baldness, extraocular muscles intact, conjunctivae pink, oral mucosa moist. NECK: Supple, with no JVD. No cervical, supraclavicular or axillary lymphadenopathy palpable. CHEST: Symmetrical. LUNGS: With slightly diminished breath sounds bilaterally without any wheezes or rales. CARDIOVASCULAR: Borderline tachycardic, regular with no murmurs or gallops heard. ABDOMEN: Soft, nontender with no hepatosplenomegaly or other masses palpable. EXTREMITIES: Showed no edema. NEUROLOGIC: Grossly intact without focal motor deficits. LABORATORY DATA: CBC done today showed white count of 4.3, hemoglobin 9.6, platelet count 165 with neutrophil count 3.9 and lymphocyte count 0.3. Chemistry panel showed normal electrolytes except CO2 level of 20. BUN was 13 and creatinine 0.99 with GFR more than 60 mL per minute. Nonfasting glucose was 185. Liver function studies were within normal limits except albumin level of 3.1. UA done today was unremarkable. Chest x-ray done at the emergency room yesterday showed minimal left perihilar infiltrate. Repeat chest x-ray done today showed worsening of the left perihilar infiltrate. Thank you for allowing me to participate in this patient's care. I will follow the patient with you and make appropriate recommendations. Job ID: [id number] DocumentID: [id number] Dictated Date: 12/27/2018 18:09:49 Mixer Lever Operator Date: 12/28/2018 01:38:44 Dictated By: FLOR BERUMEN MD MTDD
[2018-12-28] MEDS: RT-ALBUTEROL/IPRATROPIUM 3 ML (DUONEB) VIAL INH SCH ×5 (03:37→22:26)
[2018-12-28] MEDS: PIPERACILLIN/TAZO 4.5 GM/NS 100 ML IV SCH ×6 (03:47→18:34)
[2018-12-28 04:00] VITALS: BP 154/72
[2018-12-28] MEDS: ENOXAPARIN 40 MG/0.4 ML (LOVENOX) SYR SC SCH (06:25)
[2018-12-28] MEDS: inSUlin ASPART (NovoLOG) 1 UNIT/0.01 ML (CHARGE PER UNIT) SC SCH ×4 (06:25→20:11)
--- NOTE | 2018-12-28 07:35 | Pulmonary Progress Note ---
Subjective Time Seen by a Provider: 15:11 Subjective/Events-last exam Pt feels more SOB. Sepsis Event Evaluation Height, Weight, BMI Height: 5'11.00" Weight: 151lbs. 6.0oz. 68.443060kj; 21.1 BMI Method:Estimated Focused Exam Lactate Level 12/26/18 18:58: Lactic Acid Level 1.60 Exam Exam Vital Signs Date Time Temp Pulse Resp B/P (MAP) Pulse Ox O2 Delivery O2 Flow Rate FiO2 12/28/18 04:00 97.6 87 19 154/72 (99) 95 Room Air 12/28/18 03:37 94 Nasal Cannula 1.00 12/28/18 00:26 97.2 91 18 163/74 (103) 94 Room Air 12/27/18 21:00 Nasal Cannula 1.00 12/27/18 20:01 92 Nasal Cannula 1.00 12/27/18 20:00 98.4 97 18 150/59 (89) 96 Nasal Cannula 1.00 12/27/18 16:00 98.6 90 18 153/65 (94) 95 Nasal Cannula 1.00 12/27/18 14:56 94 Nasal Cannula 1.50 12/27/18 12:00 98.2 89 18 143/63 (89) 95 Nasal Cannula 1.00 12/27/18 11:37 96 Nasal Cannula 2.00 12/27/18 09:45 98.2 88 20 166/72 (103) 96 Nasal Cannula 1.00 12/27/18 08:00 92 Nasal Cannula 2.00 12/27/18 08:00 98 22 144/64 (90) 91 Nasal Cannula 1.00 I & O 12/28/18 07:00 Intake Total 3220 ml Output Total 2275 ml Balance 945 ml Height & Weight Height: 5'11.00" Weight: 151lbs. 6.0oz. 68.363794zo; 21.1 BMI Method:Estimated General Appearance: WD/WN, Chronically ill, Mild Distress, Thin HEENT: PERRL/EOMI, TMs Normal, Normal ENT Inspection, Pharynx Normal, Moist Mucous Membranes Neck: Full Range of Motion, Normal Inspection, Non Tender Respiratory: Chest Non Tender, No Accessory Muscle Use, No Respiratory Distress , Decreased Breath Sounds, Wheezing Cardiovascular: Regular Rate, Rhythm, No Edema, No Gallop, No JVD, No Murmur, Normal Peripheral Pulses Capillary Refill: Less Than 3 Seconds Gastrointestinal: normal bowel sounds, non tender, soft Extremity: Normal Capillary Refill, Normal Inspection, Normal Range of Motion, Non Tender, No Calf Tenderness, No Pedal Edema Neurologic/Psychiatric: Alert, Oriented x3, No Motor/Sensory Deficits, Normal Mood/Affect Skin: Normal Color, Warm/Dry Lymphatic: No Adenopathy Results Lab Laboratory Tests 12/26/18 18:58 12/27/18 03:15 Assessment/Plan Assessment/Plan Pneumonia - HCAP - with iatrogenic immunocompromise -Continue vanco, zosyn -Luong cultures pending -MRSA swab pending -Influenza is negative -Check urine strep and legionella Ag -Check respiratory viral panel -Pt may need bronchoscopy if unable to obtain sputum -CXR reviewed and shows L>R infiltrates -BNP is normal and procalcitonin .17 -Start Solumedrol 125 x 1 then 40 Q6 -Increase SVNs to Q 4 Multiple Myoloma -Oncology is following Solitary kidney Hx of renal cell carcinoma DM, HTN CARLENE IBARRA DO Dec 28, 2018 07:35
[2018-12-28 08:00] VITALS: BP 179/73
[2018-12-28] MEDS: VANCOMYCIN INJECTION 1,000 MG in NS (IVPB) 250 ML IV SCH (08:43)
[2018-12-28] MEDS: PANTOPRAZOLE 40 MG (PROTONIX) TAB PO SCH (08:43)
--- NOTE | 2018-12-28 09:30 | Progress Note-Hospitalist ---
Subjective HPI/CC On Admission Date Seen by Provider: Dec 28, 2018 Time Seen by Provider: 09:45 Chief compliant: SOB HPI: This is an 83yoWM known to me from [facility] admission a couple of weeks ago after being diagnosed with Multiple Myeloma on 11/08/18 required hospitalization a few days after that first chemotherapy treatment and diagnosed with pneumonia with an asthma exacerbation. He was placed on empiric antibiotics broad spectrum of Meropenem and Vancomycin and completed that on swing bed status. He maintained oxygen and Albuterol treatments at that time and was seen by Dr. Gudino, and was placed back on chemotherapy for Multiple Myeloma and he presented with SOB to the ER found to have left hilar infiltrate requiring oxygen and nebulizer treatments, and close monitoring overnight in the ICU, with broad spectrum antibiotics. He has had a rash that seems to be from the Zosyn that he was given and he has been maintained on Vancomycin. Pt has been moved to [facility], Pt appears to be declined since previously assessed at [facility] for the seven days I took care of him and overall family at the bedside. Subjective/Events-last exam Patient doing better Tremors are more apparent Appears to be more declined Breathing okay he reports Lungs are clear Still has a rash Will order physical therapy and occupational therapy Urinating well once an advanced directive help likely to make patient DO NOT RESUSCITATE because it appears he is declining Review of Systems General: Fatigue Pulmonary: Dyspnea Focused Exam Lactate Level 12/26/18 18:58: Lactic Acid Level 1.60 Objective Exam Vital Signs Vital Signs Date Time Temp Pulse Resp B/P (MAP) Pulse Ox O2 Delivery O2 Flow Rate FiO2 12/28/18 08:22 95 Nasal Cannula 1.00 12/28/18 08:00 98.5 92 20 179/73 (108) Capillary Refill : Less Than 3 Seconds General Appearance: No Apparent Distress, WD/WN, Anxious, Chronically ill HEENT: PERRL/EOMI, Normal ENT Inspection, Pharynx Normal Neck: Full Range of Motion, Normal Inspection, Non Tender, Supple Respiratory: Chest Non Tender, No Accessory Muscle Use, No Respiratory Distress , Decreased Breath Sounds Cardiovascular: Regular Rate, Rhythm, No Edema, No Gallop, Normal Peripheral Pulses Gastrointestinal: Normal Bowel Sounds, No Organomegaly, No Pulsatile Mass, Non Tender, Soft Back: Normal Inspection, No CVA Tenderness, No Vertebral Tenderness Extremity: Normal Capillary Refill, Normal Inspection Neurologic/Psychiatric: Alert, Oriented x3 Skin: Normal Color, Warm/Dry Lymphatic: No Adenopathy Results/Procedures Lab Patient resulted labs reviewed. 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 Plan: Abx changes? 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
[2018-12-28] MEDS ORDERED: HYDROcodone/APAP 5 MG/325 MG (LORTAB) TAB PO PRN (09:45)
[2018-12-28] MEDS ORDERED: ONDANSETRON 4 MG (ZOFRAN) ORAL DISSOLVE TAB PO PRN (10:00)
[2018-12-28 12:00] VITALS: BP 184/76
--- NOTE | 2018-12-28 12:26 | Physical Therapy Evaluation ---
PT Evaluation-General Medical Diagnosis Admission Date Dec 26, 2018 at 19:55 Medical Diagnosis: pneumonia/sepsis Onset Date: Dec 26, 2018 Therapy Diagnosis Therapy Diagnosis: weakness Height/Weight Height (Feet): 5 Height (Inches): 11.00 Weight (Pounds): 151 Weight (Ounces): 6.0 Precautions Precautions/Isolations: Contact/Enteric Isolation (reverse isolation) Referral Physician: Lotus Reason for Referral: Evaluation/Treatment Medical History Pertinent Medical History: DM, HTN Additional Medical History multiple myeloma, kidney CA, chronic renal insuff. Current History Admitted with pneumonia / sepsis. Reports coughing. Reviewed History: Yes Social History Home: Single Level Current Living Status: Spouse Entry Into Home: Stairs With Railing Prior/Core FIM Prior Level of Function Therapy Code Descriptions/Definitions Functional [place] Measure: 0=Not Assessed/NA 4=Minimal Assistance 1=Total Assistance 5=Supervision or Setup 2=Maximal Assistance 6=Modified [place] 3=Moderate Assistance 7=Complete [place] Therapy Quality Codes: 6 Independent with activity with or without an assistive device 5 Patient requires set up or clean up by helper. Patient completes activity by themselves 4 Supervision or touching assist (CGA). [place] provide cues , steadying assist 3 The helper provides less than half the effort to complete the activity 2 The helper provides more than half the effort to complete the activity 1 Dependent. The helper does all the effort to complete an activity 7 Patient refused to complete or attempt activity 9 The patient did not perform the activity before the current illness or injury 88 Not attempted due to Medical conditions or safety concerns Functional Abilities and Goals: Independent: Patient completed the activities by him/herself, with or without an assistive device, with no assistance from a helper. Needed Some Help: Patient needed partial assistance from another person to complete activities. Dependent: A helper completed the activities for the patient. Unknown: Not Applicable: Bed Mobility: 6 Transfers (B,C,W/C) (FIM): 6 Gait: 6 (FWW or cane; occas went without AD) Stairs: 6 Indoor Mobility (Ambulation): Independent Stairs: Independent Prior Devices Use: Walker Pt had been increasing his walking distance and walking outdoors more frequently PT Evaluation-Current Subjective Pt reports he is unable to walk this time due to it increases his coughing. Pt/Family Goals home when able Objective Patient Orientation: Person, Place, Time, Situation Problem Solving: Good Attachments: IV ROM/Strength ROM Lower Extremities WNL Strength Lower Extremities WFL Integumentary/Posture Integumentary refer to nursing notes. Bowel Incontinence: No Bladder Incontinence: No Posture normal and symmetrical Neuromuscular (Tone, Coordination, Reflexes) no noted functional deficits Sensory Vision: Wears Glasses Hearing: Functional Sensation Right Lower Extremit: Intact Sensation Left Lower Extremity: Intact Transfers Therapy Code Descriptions/Definitions Functional [place] Measure: 0=Not Assessed/NA 4=Minimal Assistance 1=Total Assistance 5=Supervision or Setup 2=Maximal Assistance 6=Modified [place] 3=Moderate Assistance 7=Complete [place] Transfers (B, C, W/C) (FIM): 5 Supine to/from Sit: 5 Sit to/from Stand: 5 SBA with transfers for safety. Pt did not need assist to complete Balance Sitting Static: Good Sitting Dynamic: Good Assessment/Needs Pt presents with slight functional weakness; he will benefit form skilled PT to promote transfers, gait and strength to allow him to return home at a mod indep level. Rehab Potential: Good PT Contact Center Associate Goals Correction Goals PT Correction Goals Time Frame: Jan 04, 2019 Transfers (B,C,W/C) (FIM): 6 Gait (FIM): 6 Gait distance (FIM): 3=150 ft Gait Level of Assist: 6 PT Plan Problem List Problem List: Activity Tolerance, Functional Strength, Safety, Balance, Gait, Transfer, Bed Mobility Treatment/Plan Treatment Plan: Continue Plan of Care Treatment Plan: Bed Mobility, Education, Functional Activity Dileep, Functional Strength, Gait, Safety, Therapeutic Exercise, Transfers Treatment Duration: Jan 04, 2019 Frequency: 6 times per week Estimated Hrs Per Day: .25 hour per day Patient and/or Family Agrees t: Yes Safety Risks/Education Patient Education: Safety Issues Teaching Recipient: Patient Teaching Methods: Discussion Response to Teaching: Reinforcement Needed Time/GCodes Time In: 1200 Time Out: 1215 Total Billed Treatment Time: 15 Total Billed Treatment visit EVL 15 EVONNE POWELL PT Dec 28, 2018 12:26
[2018-12-28] MEDS: cloNIDine 0.1 MG (CATAPRES) TAB PO SCH (13:25)
[2018-12-28] MEDS: amLODIPine 5 MG (NORVASC) TAB PO SCH (13:25)
[2018-12-28] MEDS ORDERED: methylPREDNISolone 125 MG (Solu-MEDROL) VIAL IVP NR (14:15)
[2018-12-28] MEDS: hydrALAZINE (APESOLINE) 20 MG/ML VIAL IV PRN (14:18)
--- NOTE | 2018-12-28 14:37 | Occ Therapy Progress Note ---
Therapy Progress Note Nursing request Therapy hold this date secondary to pt BP. OT will attempt to see patient next day/ when patient is stable AFIA BERGER OT Dec 28, 2018 14:36
[2018-12-28 14:45] LABS: ABG OXYGEN SATURATION 97 % (94-100); ABG PCO2 30 MMHG (35-45); ABG PH 7.45 (7.37-7.43); ABG PO2 80 MMHG (79-93); ABG TCO2 21.3 MMOL/L (21.0-31.0)
[2018-12-28 14:48] LABS: ALLENS TEST YES-POS; INSPIRED O2 1; PATIENT TEMP 98.8; VENTILATOR NO
[2018-12-28] MEDS ORDERED: LORazepam INJ 2 MG/ML (ATIVAN) VIAL IVP PRN (15:15)
[2018-12-28] MEDS ORDERED: morphine INJ 4 MG/ML 1 ML (VIAL/SYRINGE) IVP PRN (15:15)
[2018-12-28] MEDS ORDERED: RT-ALBUTEROL/IPRATROPIUM 3 ML (DUONEB) VIAL INH PRN (15:30)
[2018-12-28 15:37] LABS: BASOPHILS % (AUTO) 1 % (0-10); EOSINOPHILS # (AUTO) 0.6 10^3/uL (0.0-0.3); EOSINOPHILS % (AUTO) 10 % (0-10); HEMATOCRIT 31 % (40-54); HEMOGLOBIN 9.9 G/DL (13.3-17.7); LYMPHOCYTES # (AUTO) 0.4 X 10^3 (1.0-4.0); LYMPHOCYTES % (AUTO) 7 % (12-44); MEAN CORPUSCULAR HGB CONC 32 G/DL (32-36); MEAN CORPUSCULAR VOLUME 95 FL (80-99); MONOCYTES # (AUTO) 0.4 X 10^3 (0.0-1.0); MONOCYTES % (AUTO) 7 % (0-12); NEUTROPHILS # (AUTO) 4.7 X 10^3 (1.8-7.8); NEUTROPHILS % (AUTO) 76 % (42-75); PLATELET COUNT 184 10^3/uL (130-400); RED CELL DISTRIBUTION WIDTH 14.9 % (10.0-14.5); WHITE BLOOD COUNT 6.2 10^3/uL (4.3-11.0)
[2018-12-28 15:38] LABS: MEAN CORPUSCULAR HEMOGLOBIN 30 PG (25-34)
[2018-12-28 15:54] LABS: BUN/CREATININE RATIO 13; CALCIUM 7.3 MG/DL (8.5-10.1); CARBON DIOXIDE 22 MMOL/L (21-32); CHLORIDE 110 MMOL/L (98-107); CREATININE SERUM 1.09 MG/DL (0.60-1.30); GFR ESTIMATED > 60; GLUCOSE 165 MG/DL (70-105); MAGNESIUM 1.8 MG/DL (1.8-2.4); PHOSPHORUS 2.5 MG/DL (2.3-4.7); SODIUM 142 MMOL/L (135-145)
[2018-12-28 16:00] VITALS: BP 169/75
[2018-12-28] MEDS ORDERED: RT-ALBUTEROL/IPRATROPIUM 3 ML (DUONEB) VIAL INH SCH (16:00)
[2018-12-28] MEDS: metFORMIN 500 MG (GLUCOPHAGE) TAB PO SCH (16:37)
--- NOTE | 2018-12-28 18:07 | Progress Note-Standard ---
Standard Progress Note Progress Notes/Assess & Plan Date Seen by a Provider: Dec 28, 2018 Time Seen by a Provider: 18:00 Progress/Assessment & Plan 83-year-old male with recent diagnosis of multiple myeloma with painful bony lesion in the lower lumbar area, status post palliative radiation therapy with pain control. Patient started on palliative chemotherapy with VRD lite regimen on 11/27/2018 but developed fever and lung infiltrates by 12/01/2018. He was admitted to [facility] and treated with broad-spectrum antibiotics with gradual resolution. Treatment restarted one week ago and patient developed fever with left lung infiltrates and admitted to [facility] and is on Zosyn plus vancomycin. Cultures negative so far except urine culture growing staph epidermidis up to 20,000 colonies. Low-grade fever today at noon. Has mild nonproductive cough and dyspnea on exertion. Chemotherapy on hold since early this week. Unclear if symptoms related to actual infection versus drug induced (Revlimid). Continue broad-spectrum antibiotics and supportive care for now. Dr. Segovia covering for oncology until 01/01/2019. Focused Exam Lactate Level 12/26/18 18:58: Lactic Acid Level 1.60 FLOR BERUMEN Dec 28, 2018 18:07
[2018-12-28] MEDS: methylPREDNISolone 40 MG/ML (Solu-MEDROL) VIAL IV SCH (18:38)
[2018-12-28] MEDS: ADVAIR HFA 115/21 MCG INHALER 8 GM IH SCH (19:02)
[2018-12-28 20:00] VITALS: BP 134/69
[2018-12-28] MEDS ORDERED: RT-ADVAIR HFA 115/21 MCG PER PUFF IH SCH (20:00)
[2018-12-28] MEDS: FAMOTIDINE 20 MG (PEPCID) TABLET PO SCH (20:10)
[2018-12-28] MEDS: TAMSULOSIN 0.4 MG (FLOMAX) CAP PO SCH (20:10)
[2018-12-28] MEDS: ZOLPIDEM 5 MG (AMBIEN) TAB PO SCH ×2 (23:08)
[2018-12-28] MEDS: AMITRIPTYLINE 25 MG (ELAVIL) TAB PO SCH (23:08)
[2018-12-29] MEDS: methylPREDNISolone 40 MG/ML (Solu-MEDROL) VIAL IV SCH ×5 (00:15→23:27)
[2018-12-29] MEDS: hydrALAZINE (APESOLINE) 20 MG/ML VIAL IV PRN (00:26)
[2018-12-29 00:40] VITALS: BP 139/64
[2018-12-29] MEDS: RT-ALBUTEROL/IPRATROPIUM 3 ML (DUONEB) VIAL INH SCH ×6 (02:45→23:04)
[2018-12-29] MEDS: PIPERACILLIN/TAZO 4.5 GM/NS 100 ML IV SCH ×6 (03:09→21:12)
[2018-12-29 04:00] VITALS: BP 160/68
[2018-12-29 04:45] LABS: BASOPHILS % (AUTO) 0 % (0-10); EOSINOPHILS % (AUTO) 0 % (0-10); HEMATOCRIT 30 % (40-54); HEMOGLOBIN 9.8 G/DL (13.3-17.7); LYMPHOCYTES # (AUTO) 0.4 X 10^3 (1.0-4.0); LYMPHOCYTES % (AUTO) 9 % (12-44); MEAN CORPUSCULAR HEMOGLOBIN 31 PG (25-34); MEAN CORPUSCULAR HGB CONC 33 G/DL (32-36); MEAN CORPUSCULAR VOLUME 94 FL (80-99); MEAN PLATELET VOLUME 10.4 FL (7.4-10.4); MONOCYTES # (AUTO) 0.1 X 10^3 (0.0-1.0); MONOCYTES % (AUTO) 2 % (0-12); NEUTROPHILS # (AUTO) 4.1 X 10^3 (1.8-7.8); NEUTROPHILS % (AUTO) 89 % (42-75); PLATELET COUNT 170 10^3/uL (130-400); RED CELL DISTRIBUTION WIDTH 14.6 % (10.0-14.5); WHITE BLOOD COUNT 4.6 10^3/uL (4.3-11.0)
[2018-12-29 05:07] LABS: ALANINE AMINOTRANSFERASE 34 U/L (0-55); ALBUMIN 3.3 GM/DL (3.2-4.5); ALKALINE PHOSPHATASE 84 U/L (40-136); BILIRUBIN,TOTAL 0.4 MG/DL (0.1-1.0); BUN/CREATININE RATIO 11; CALCIUM 7.2 MG/DL (8.5-10.1); CARBON DIOXIDE 19 MMOL/L (21-32); CHLORIDE 111 MMOL/L (98-107); GFR ESTIMATED > 60; GLUCOSE 177 MG/DL (70-105); MAGNESIUM 1.6 MG/DL (1.8-2.4); POTASSIUM 2.9 MMOL/L (3.6-5.0); SODIUM 143 MMOL/L (135-145); TOTAL PROTEIN 5.8 GM/DL (6.4-8.2)
[2018-12-29] MEDS ORDERED: KCL 20 MEQ TAB (K-DUR) PO ONE (06:15)
--- NOTE | 2018-12-29 06:18 | Pulmonary Progress Note ---
Subjective Time Seen by a Provider: 08:45 Subjective/Events-last exam Complains of cough and SOB. Sepsis Event Evaluation Height, Weight, BMI Height: 5'11.00" Weight: 151lbs. 6.0oz. [id number]; 21.1 BMI Method:Estimated Focused Exam Lactate Level 12/26/18 18:58: Lactic Acid Level 1.60 Exam Exam Vital Signs Date Time Temp Pulse Resp B/P (MAP) Pulse Ox O2 Delivery O2 Flow Rate FiO2 12/29/18 02:45 95 Nasal Cannula 1.00 12/29/18 00:40 97.4 92 20 139/64 (89) 96 Nasal Cannula 1.00 12/28/18 22:26 93 Nasal Cannula 1.00 12/28/18 20:00 Nasal Cannula 1.00 12/28/18 20:00 98.2 93 20 134/69 (90) 95 Nasal Cannula 1.00 12/28/18 19:02 Nasal Cannula 1.00 12/28/18 19:02 92 Nasal Cannula 1.00 12/28/18 16:00 97.9 99 20 169/75 (106) 96 Nasal Cannula 1.00 12/28/18 13:31 95 Room Air 12/28/18 12:00 99.4 100 20 184/76 (112) 93 Room Air 12/28/18 08:22 95 Nasal Cannula 1.00 12/28/18 08:00 98.5 92 20 179/73 (108) 94 Nasal Cannula 1.00 12/28/18 07:44 Room Air I & O 12/29/18 07:00 Intake Total 5040 ml Output Total 2355 ml Balance 2685 ml Height & Weight Height: 5'11.00" Weight: 151lbs. 6.0oz. 68.179236sj; 21.1 BMI Method:Estimated General Appearance: WD/WN, Chronically ill, Mild Distress, Thin HEENT: PERRL/EOMI, TMs Normal, Normal ENT Inspection, Pharynx Normal, Moist Mucous Membranes Neck: Full Range of Motion, Normal Inspection, Non Tender Respiratory: Chest Non Tender, No Accessory Muscle Use, No Respiratory Distress , Decreased Breath Sounds, Wheezing Cardiovascular: Regular Rate, Rhythm, No Edema, No Gallop, No JVD, No Murmur, Normal Peripheral Pulses Capillary Refill: Less Than 3 Seconds Gastrointestinal: normal bowel sounds, non tender, soft Extremity: Normal Capillary Refill, Normal Inspection, Normal Range of Motion, Non Tender, No Calf Tenderness, No Pedal Edema Neurologic/Psychiatric: Alert, Oriented x3, No Motor/Sensory Deficits, Normal Mood/Affect Skin: Normal Color, Warm/Dry Lymphatic: No Adenopathy Results Lab Laboratory Tests 12/28/18 15:31 12/29/18 04:20 Assessment/Plan Assessment/Plan Pneumonia - HCAP - with iatrogenic immunocompromise -Continue zosyn D/C vanco, -Luong cultures pending -MRSA swab neg -Influenza is negative -Check urine strep and legionella Ag - respiratory viral panel - pending -Pt may need bronchoscopy if unable to obtain sputum -CXR -- repeat CXR -BNP is normal and procalcitonin .17 -Start Solumedrol 125 x 1 then 40 Q6 -Increase SVNs to Q 4 Multiple Myoloma -Oncology is following Solitary kidney Hx of renal cell carcinoma DM, HTN CARLENE IBARRA DO Dec 29, 2018 06:18
[2018-12-29] MEDS: metFORMIN 500 MG (GLUCOPHAGE) TAB PO SCH ×2 (06:46→16:08)
[2018-12-29] MEDS: inSUlin ASPART (NovoLOG) 1 UNIT/0.01 ML (CHARGE PER UNIT) SC SCH ×4 (06:46→21:19)
[2018-12-29] MEDS: ENOXAPARIN 40 MG/0.4 ML (LOVENOX) SYR SC SCH (06:47)
[2018-12-29 08:00] VITALS: BP 152/62
[2018-12-29] MEDS ORDERED: TROUGH ORDER-PHARMACY XX NR (08:00)
[2018-12-29] MEDS: MAGNESIUM 1 GM/100 ML IVPB 100 ML IV SCH ×3 (08:51→11:23)
[2018-12-29] MEDS: LORATADINE (CLARITIN) 10 MG TAB PO SCH (08:52)
[2018-12-29] MEDS: cloNIDine 0.1 MG (CATAPRES) TAB PO SCH (08:52)
[2018-12-29] MEDS: MONTELUKAST 10 MG (SINGULAIR) TAB PO SCH ×2 (08:52→21:15)
[2018-12-29] MEDS: TAMSULOSIN 0.4 MG (FLOMAX) CAP PO SCH ×2 (08:52→21:14)
[2018-12-29] MEDS: amLODIPine 5 MG (NORVASC) TAB PO SCH (08:52)
[2018-12-29] MEDS: CALCIUM CARBONATE 500 MG (TUMS) TAB.CHEW PO SCH (08:52)
[2018-12-29] MEDS: PANTOPRAZOLE 40 MG (PROTONIX) TAB PO SCH (08:53)
--- NOTE | 2018-12-29 08:54 | Diagnostic Imaging Report ---
INDICATION: Shortness of breath. Frontal chest obtained at 7:02 a.m. and compared to 12/27/2018. FINDINGS: The heart is mildly enlarged. There are diffuse chronic appearing increased interstitial markings. The infiltrate in the left infrahilar region has partially improved. There is no pneumothorax or gross pleural fluid. IMPRESSION: Mild cardiomegaly with chronic appearing increased interstitial markings. Partial improvement in left infrahilar infiltrate compared to the prior study. No new abnormality otherwise seen. Dictated by: Dictated on workstation # [id number]
[2018-12-29] MEDS: ADVAIR HFA 115/21 MCG INHALER 8 GM IH SCH ×2 (08:59→19:15)
[2018-12-29] MEDS ORDERED: amLODIPine 5 MG (NORVASC) TAB PO SCH (09:00)
[2018-12-29] MEDS ORDERED: cloNIDine 0.1 MG (CATAPRES) TAB PO SCH (09:00)
--- NOTE | 2018-12-29 10:08 | Physical Therapy Progress Note ---
Therapy Progress Note PT attempted but patient refused. He was very tired/fatigued. Patient states he has been in the chair for a long time and just got back to bed after ambulating to the bathroom and back. He would like for PT to try back this afternoon. COREY PARKER PT Dec 29, 2018 10:08
--- NOTE | 2018-12-29 11:48 | Progress Note-Hospitalist ---
Subjective HPI/CC On Admission Date Seen by Provider: Dec 29, 2018 Time Seen by Provider: 11:00 Chief compliant: SOB HPI: This is an 83yoWM known to me from [facility] admission a couple of weeks ago after being diagnosed with Multiple Myeloma on 11/08/18 required hospitalization a few days after that first chemotherapy treatment and diagnosed with pneumonia with an asthma exacerbation. He was placed on empiric antibiotics broad spectrum of Meropenem and Vancomycin and completed that on swing bed status. He maintained oxygen and Albuterol treatments at that time and was seen by Dr. Gudino, and was placed back on chemotherapy for Multiple Myeloma and he presented with SOB to the ER found to have left hilar infiltrate requiring oxygen and nebulizer treatments, and close monitoring overnight in the ICU, with broad spectrum antibiotics. He has had a rash that seems to be from the Zosyn that he was given and he has been maintained on Vancomycin. Pt has been moved to [facility], Pt appears to be declined since previously assessed at [facility] for the seven days I took care of him and overall family at the bedside. Subjective/Events-last exam Patient doing well Feels better than yesterday Reading better than yesterday Maintain on oxygen Labs reviewed Vancomycin discontinued at bedside Overall tolerating treatment Review of Systems General: Fatigue Focused Exam Lactate Level 12/26/18 18:58: Lactic Acid Level 1.60 Objective Exam Vital Signs Vital Signs Date Time Temp Pulse Resp B/P (MAP) Pulse Ox O2 Delivery O2 Flow Rate FiO2 12/29/18 10:43 98 Nasal Cannula 1.00 12/29/18 08:00 98.0 94 20 152/62 (92) Capillary Refill : Less Than 3 Seconds General Appearance: No Apparent Distress, WD/WN, Chronically ill, Thin HEENT: PERRL/EOMI, TMs Normal, Normal ENT Inspection, Pharynx Normal, Moist Mucous Membranes Neck: Full Range of Motion, Normal Inspection, Non Tender Respiratory: Chest Non Tender, No Accessory Muscle Use, No Respiratory Distress , Decreased Breath Sounds, Wheezing Cardiovascular: Regular Rate, Rhythm, No Edema, No Gallop, No JVD, No Murmur, Normal Peripheral Pulses Gastrointestinal: Normal Bowel Sounds, No Organomegaly, No Pulsatile Mass, Non Tender, Soft Back: Normal Inspection, No CVA Tenderness, No Vertebral Tenderness Extremity: Normal Capillary Refill, Normal Inspection, Normal Range of Motion, Non Tender, No Calf Tenderness, No Pedal Edema Neurologic/Psychiatric: Alert, Oriented x3, No Motor/Sensory Deficits, Normal Mood/Affect Skin: Normal Color, Warm/Dry Lymphatic: No Adenopathy Results/Procedures Lab Laboratory Tests 12/28/18 15:31 12/29/18 04:20 Patient resulted labs reviewed. 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 Diabetes mellitus complication status: with unspecified complications Qualified Codes: E11.8 - Type 2 diabetes mellitus with unspecified complications (6) Hypertension Status: Chronic Qualifiers: Hypertension type: essential hypertension Qualified Codes: I10 - Essential (primary) hypertension (7) Urinary retention due to benign prostatic hyperplasia Status: Chronic (8) Multiple myeloma Status: Chronic Qualifiers: Multiple myeloma remission status: not in remission Qualified Codes: C90.00 - Multiple myeloma not having achieved remission Clinical Quality Measures DVT/VTE Risk/Contraindication: Risk Factor Score Per Nursin RFS Level Per Nursing on Admit: 4+=Very High RANJIT VELA DO Dec 29, 2018 11:48
[2018-12-29 12:00] VITALS: BP 142/68
[2018-12-29] MEDS: NS IV 1000 ML 1,000 ML IV SCH (12:45)
[2018-12-29] MEDS: POTASSIUM CL 10MEQ/50ML IVPB 50 ML IV SCH ×8 (12:45→18:11)
--- NOTE | 2018-12-29 12:53 | Occupational Therapy Eval ---
OT Evaluation-General/PLF Medical Diagnosis Admission Date Dec 26, 2018 at 19:55 Medical Diagnosis: pneumonia/sepsis Onset Date: Dec 26, 2018 Therapy Diagnosis Therapy Diagnosis: impaired ADLS and mobility Height/Weight Height (Feet): 5 Height (Inches): 11.00 Weight (Pounds): 151 Weight (Ounces): 6.0 Precautions Precautions/Isolations: Chemo Precautions, Fall Prevention Safety Interventions: None Weight Bear Status Weight Bearing Restriction: Weight Bearing/Tolerated Referral Physician: Lotus Referral Reason: Activity Tolerance, Self Care, Evaluation/Treatment Medical History Pertinent Medical History: DM, HTN Current History HPI: This is an 83yoWM known to me from [facility] admission a couple of weeks ago after being diagnosed with Multiple Myeloma on 11/08/18 required hospitalization a few days after that first chemotherapy treatment and diagnosed with pneumonia with an asthma exacerbation. He was placed on empiric antibiotics broad spectrum of Meropenem and Vancomycin and completed that on swing bed status. He maintained oxygen and Albuterol treatments at that time and was seen by Dr. Gudino, and was placed back on chemotherapy for Multiple Myeloma and he presented with SOB to the ER found to have left hilar infiltrate requiring oxygen and nebulizer treatments, and close monitoring overnight in the ICU, with broad spectrum antibiotics. He has had a rash that seems to be from the Zosyn that he was given and he has been maintained on Vancomycin. Pt has been moved to [facility], Pt appears to be declined since previously assessed at [facility] for the seven days I took care of him and overall family at the bedside. Reviewed History: Yes Social History Home: Single Level Current Living Status: Spouse Entry Into Home: Stairs With Railing ADL-Prior Level of Function Therapy Code Descriptions/Definitions Functional [place] Measure: 0=Not Assessed/NA 4=Minimal Assistance 1=Total Assistance 5=Supervision or Setup 2=Maximal Assistance 6=Modified [place] 3=Moderate Assistance 7=Complete [place] Therapy Quality Codes: 6 Independent with activity with or without an assistive device 5 Patient requires set up or clean up by helper. Patient completes activity by themselves 4 Supervision or touching assist (CGA). [place] provide cues , steadying assist 3 The helper provides less than half the effort to complete the activity 2 The helper provides more than half the effort to complete the activity 1 Dependent. The helper does all the effort to complete an activity 7 Patient refused to complete or attempt activity 9 The patient did not perform the activity before the current illness or injury 88 Not attempted due to Medical conditions or safety concerns Functional Abilities and Goals: Independent: Patient completed the activities by him/herself, with or without an assistive device, with no assistance from a helper. Needed Some Help: Patient needed partial assistance from another person to complete activities. Dependent: A helper completed the activities for the patient. Unknown: Not Applicable: Self Care: Independent Functional Cognition: Independent DME/Equipment: Bath Chair, Grab Bars, Shower Drive Self: Yes OT Current Status Subjective pt agreed to OT evaluation session. pt complains of no pain Appearance post O T evaluation. pt siting in recliner chair. All needs met Mental Status/Objective Attachments: Lopez Catheter, IV, Oxygen Current Glasses/Contacts: Yes Hearing Aids: Yes Dentures/Partials: Yes Hand Dominance: Right Upper Extremity ROM WFL Upper Extremity Coordination WFL Upper Extremity Sensation WFL Upper Extremity Strength WFL ADL-Treatment Therapy Code Descriptions/Definitions Functional [place] Measure: 0=Not Assessed/NA 4=Minimal Assistance 1=Total Assistance 5=Supervision or Setup 2=Maximal Assistance 6=Modified [place] 3=Moderate Assistance 7=Complete [place] Therapy Quality Codes: 6 Independent with activity with or without an assistive device 5 Patient requires set up or clean up by helper. Patient completes activity by themselves 4 Supervision or touching assist (CGA). [place] provide cues , steadying assist 3 The helper provides less than half the effort to complete the activity 2 The helper provides more than half the effort to complete the activity 1 Dependent. The helper does all the effort to complete an activity 7 Patient refused to complete or attempt activity 9 The patient did not perform the activity before the current illness or injury 88 Not attempted due to Medical conditions or safety concerns Grooming (FIM): 5 (seated in chiar) Lower Body Dressing (FIM): 1 Other Treatments pt education on proper method of performing sit to stands using RW. pt educating on proper hand placement. pt verbalized understanding an demo ability to perform 1 sit to stand with CGA for safety/ balance. ot demo impulsivity and required cueing to slow down. pt demo ability to perform stand pivot transfer to body artist chair in prep for transferring to toilet with CGA. noted poor use of RW required VC fo safety. noted decrease activity tolerance and SOB with activity requiring rest breaks. Education OT Patient Education: Energy conservation, Progress toward Goal/Update tx plan , Purpose of tx/functional activities, Safety issues, Transfer techniques Teaching Recipient: Patient, Family Teaching Methods: Demonstration, Discussion Response to Teaching: Verbalize Understanding, Return Demonstration OT Short Term Goals Short Term Goals Grooming(FIM): 5 Bathing(FIM): 5 Lower Body Dressing(FIM): 5 Toileting(FIM): 5 Transfers (B,C,W/C) (FIM): 5 Toilet/Commode Transfer(FIM): 5 1=Demonstrate adherence to instructed precautions during ADL tasks. 2=Patient will verbalize/demonstrate understanding of assistive devices/ modifications for ADL. 3=Patient will improve strength/tolerance for activity to enable patient to perform ADL's. OT Auto Inspection Specialist Goals [facility] Goals Grooming(FIM): 6 Bathing(FIM): 6 Lower Body Dressing(FIM): 6 Toileting(FIM): 6 Transfers (B,C,W/C) (FIM): 6 Toilet/Commode Transfer(FIM): 6 1=Demonstrate adherence to instructed precautions during ADL tasks. 2=Patient will verbalize/demonstrate understanding of assistive devices/ modifications for ADL. 3=Patient will improve strength/tolerance for activity to enable patient to perform ADL's. OT Education/Plan Problem List/Assessment Assessment: Decreased Activ Tolerance, Decreased Safety Aware, Impaired Funct Balance, Impaired I ADL's, Impaired Self-Care Skills pt presents with functional limitations affecting areas of ADL and functional transfers. pt would benefit from OT services to increase independence with AFL sand functional transfers and for safe transition to home Discharge Recommendations Plan/Recommendations: Continue POC Therapy D/C Recommendations: Home w/ Family Support Patient/Family Goals "to go home with my " Treatment Plan/Plan of Care Treatment,Training & Education: Yes Patient would benefit from OT for education, treatment and training to promote independence in ADL's, mobility, safety and/or upper extremity function for ADL' s. Plan of Care: ADL Retraining, Functional Mobility, Group Exercise/Act as Ind, UE Funct Exercise/Act Treatment Duration: Jan 05, 2019 Frequency: 5 times per week Estimated Hrs Per Day: .25 hour per day Rehab Potential: Good Time/GCodes Start Time: 08:10 Stop Time: 08:36 Billed Treatment Time EVM 15 minutes FA 11 minutes, 1unit AFIA BERGER OT Dec 29, 2018 12:53
--- NOTE | 2018-12-29 13:21 | Physical Therapy Progress Note ---
Therapy Progress Note PT attempted and patient refused again. Patient just got back to bed after having a shower, nurse aide still in the room after getting him to bed. Patient states he is too tired to participate and would like for us to try back tomorrow. COREY PARKER PT Dec 29, 2018 13:21
--- NOTE | 2018-12-29 15:39 | NUR ---
Initial visit: pt resting with eyes closed. His answered the door after I knocked: she was on the pone, so I briefly introduced myself, offered support as needed, and thanked her for her time.
[2018-12-29 16:10] VITALS: BP 144/56
--- NOTE | 2018-12-29 17:15 | Occupational Therapy Eval ---
OT Evaluation-General/PLF Medical Diagnosis Admission Date Dec 26, 2018 at 19:55 Medical Diagnosis: pneumonia/sepsis Onset Date: Dec 26, 2018 Therapy Diagnosis Therapy Diagnosis: impaired ADLs and mobility Height/Weight Height (Feet): 5 Height (Inches): 11.00 Weight (Pounds): 151 Weight (Ounces): 6.0 Precautions Precautions/Isolations: Chemo Precautions, Fall Prevention Safety Interventions: None Referral Physician: Lotus Referral Reason: Activity Tolerance, Self Care, Evaluation/Treatment, Strengthening/ROM Medical History Pertinent Medical History: DM, HTN Reviewed History: Yes Social History Home: Single Level Current Living Status: Spouse Entry Into Home: Stairs With Railing ADL-Prior Level of Function Therapy Code Descriptions/Definitions Functional [place] Measure: 0=Not Assessed/NA 4=Minimal Assistance 1=Total Assistance 5=Supervision or Setup 2=Maximal Assistance 6=Modified [place] 3=Moderate Assistance 7=Complete [place] Therapy Quality Codes: 6 Independent with activity with or without an assistive device 5 Patient requires set up or clean up by helper. Patient completes activity by themselves 4 Supervision or touching assist (CGA). [place] provide cues , steadying assist 3 The helper provides less than half the effort to complete the activity 2 The helper provides more than half the effort to complete the activity 1 Dependent. The helper does all the effort to complete an activity 7 Patient refused to complete or attempt activity 9 The patient did not perform the activity before the current illness or injury 88 Not attempted due to Medical conditions or safety concerns Functional Abilities and Goals: Independent: Patient completed the activities by him/herself, with or without an assistive device, with no assistance from a helper. Needed Some Help: Patient needed partial assistance from another person to complete activities. Dependent: A helper completed the activities for the patient. Unknown: Not Applicable: Self Care: Independent Functional Cognition: Independent DME/Equipment: Bath Chair, Shower Drive Self: Yes OT Current Status Subjective pt laying supine in bed upon OT arrival in no appearnt distress. pt family present in room. pt agreed to OT evaluation session. Appearance post OT session pt sitting in recliner chair, family present, tray, call light and phone all within reach. All needs met. Mental Status/Objective Patient Orientation: Normal For Age Attachments: IV Current Glasses/Contacts: Yes Hearing Aids: Yes Dentures/Partials: Yes Hand Dominance: Right Upper Extremity ROM WFL Upper Extremity Coordination WFL Upper Extremity Sensation WFL Upper Extremity Strength WFL ADL-Treatment Therapy Code Descriptions/Definitions Functional [place] Measure: 0=Not Assessed/NA 4=Minimal Assistance 1=Total Assistance 5=Supervision or Setup 2=Maximal Assistance 6=Modified [place] 3=Moderate Assistance 7=Complete [place] Therapy Quality Codes: 6 Independent with activity with or without an assistive device 5 Patient requires set up or clean up by helper. Patient completes activity by themselves 4 Supervision or touching assist (CGA). [place] provide cues , steadying assist 3 The helper provides less than half the effort to complete the activity 2 The helper provides more than half the effort to complete the activity 1 Dependent. The helper does all the effort to complete an activity 7 Patient refused to complete or attempt activity 9 The patient did not perform the activity before the current illness or injury 88 Not attempted due to Medical conditions or safety concerns OT Short Term Goals Short Term Goals 1=Demonstrate adherence to instructed precautions during ADL tasks. 2=Patient will verbalize/demonstrate understanding of assistive devices/ modifications for ADL. 3=Patient will improve strength/tolerance for activity to enable patient to perform ADL's. OT Snf Goals Piano Case Maker Goals 1=Demonstrate adherence to instructed precautions during ADL tasks. 2=Patient will verbalize/demonstrate understanding of assistive devices/ modifications for ADL. 3=Patient will improve strength/tolerance for activity to enable patient to perform ADL's. OT Education/Plan Treatment Plan/Plan of Care Patient would benefit from OT for education, treatment and training to promote independence in ADL's, mobility, safety and/or upper extremity function for ADL' s. Rehab Potential: AFIA Oconnor OT Dec 29, 2018 11:52
[2018-12-29 20:00] VITALS: BP 140/53
[2018-12-29] MEDS: FAMOTIDINE 20 MG (PEPCID) TABLET PO SCH (21:14)
[2018-12-29] MEDS: AMITRIPTYLINE 25 MG (ELAVIL) TAB PO SCH (23:27)
[2018-12-29] MEDS: ZOLPIDEM 5 MG (AMBIEN) TAB PO SCH ×2 (23:27→23:30)
[2018-12-30] VITALS (7 sets, daily range): BP systolic 125–162; BP diastolic 58–74
[2018-12-30] MEDS: RT-ALBUTEROL/IPRATROPIUM 3 ML (DUONEB) VIAL INH SCH ×6 (02:56→21:53)
[2018-12-30] MEDS: PIPERACILLIN/TAZO 4.5 GM/NS 100 ML IV SCH ×6 (03:20→19:55)
[2018-12-30 04:28] LABS: BASOPHILS % (AUTO) 0 % (0-10); EOSINOPHILS % (AUTO) 0 % (0-10); HEMATOCRIT 27 % (40-54); HEMOGLOBIN 8.6 G/DL (13.3-17.7); LYMPHOCYTES # (AUTO) 0.8 X 10^3 (1.0-4.0); LYMPHOCYTES % (AUTO) 13 % (12-44); MEAN CORPUSCULAR HGB CONC 32 G/DL (32-36); MEAN CORPUSCULAR VOLUME 94 FL (80-99); MEAN PLATELET VOLUME 10.4 FL (7.4-10.4); MONOCYTES # (AUTO) 0.4 X 10^3 (0.0-1.0); MONOCYTES % (AUTO) 6 % (0-12); NEUTROPHILS # (AUTO) 5.1 X 10^3 (1.8-7.8); NEUTROPHILS % (AUTO) 81 % (42-75); PLATELET COUNT 177 10^3/uL (130-400); RED CELL DISTRIBUTION WIDTH 14.8 % (10.0-14.5); WHITE BLOOD COUNT 6.4 10^3/uL (4.3-11.0)
[2018-12-30 04:29] LABS: MEAN CORPUSCULAR HEMOGLOBIN 30 PG (25-34)
[2018-12-30 04:50] LABS: BUN/CREATININE RATIO 16; CALCIUM 6.6 MG/DL (8.5-10.1); CARBON DIOXIDE 20 MMOL/L (21-32); CHLORIDE 112 MMOL/L (98-107); CREATININE SERUM 0.85 MG/DL (0.60-1.30); GFR ESTIMATED > 60; GLUCOSE 180 MG/DL (70-105); MAGNESIUM 2.4 MG/DL (1.8-2.4); PHOSPHORUS 2.1 MG/DL (2.3-4.7); POTASSIUM 3.4 MMOL/L (3.6-5.0); SODIUM 142 MMOL/L (135-145)
[2018-12-30] MEDS: inSUlin ASPART (NovoLOG) 1 UNIT/0.01 ML (CHARGE PER UNIT) SC SCH ×4 (05:06→21:38)
[2018-12-30] MEDS: methylPREDNISolone 40 MG/ML (Solu-MEDROL) VIAL IV SCH ×4 (06:29→23:25)
[2018-12-30] MEDS: metFORMIN 500 MG (GLUCOPHAGE) TAB PO SCH ×2 (06:29→16:58)
[2018-12-30] MEDS: ENOXAPARIN 40 MG/0.4 ML (LOVENOX) SYR SC SCH (06:29)
--- NOTE | 2018-12-30 07:10 | Pulmonary Progress Note ---
Subjective Time Seen by a Provider: 08:50 Subjective/Events-last exam Pt complains of cough and SOB. Sepsis Event Evaluation Height, Weight, BMI Height: 5'11.00" Weight: 151lbs. 6.0oz. 68.114486ue; 21.1 BMI Method:Estimated Exam Exam Vital Signs Date Time Temp Pulse Resp B/P (MAP) Pulse Ox O2 Delivery O2 Flow Rate FiO2 12/30/18 04:48 98.4 91 18 151/65 (93) 94 Nasal Cannula 1.00 12/30/18 02:56 96 Nasal Cannula 0.50 12/30/18 00:54 98.2 92 18 131/58 (82) 94 Nasal Cannula 1.00 12/29/18 23:04 98 Nasal Cannula 0.50 12/29/18 20:00 Nasal Cannula 0.50 12/29/18 20:00 97.8 90 18 140/53 (82) 97 Nasal Cannula 1.00 12/29/18 19:15 98 Nasal Cannula 1.00 12/29/18 19:15 Nasal Cannula 0.50 12/29/18 16:10 97.1 87 18 144/56 (85) 97 Nasal Cannula 1.00 12/29/18 14:19 99 Nasal Cannula 1.00 12/29/18 12:00 97.1 84 18 142/68 (92) 98 Nasal Cannula 1.00 12/29/18 10:43 98 Nasal Cannula 1.00 12/29/18 08:00 Nasal Cannula 1.00 12/29/18 08:00 98.0 94 20 152/62 (92) 96 Nasal Cannula 1.00 I & O 12/30/18 07:00 Intake Total 2710 ml Output Total 1625 ml Balance 1085 ml Height & Weight Height: 5'11.00" Weight: 151lbs. 6.0oz. 68.324687vl; 21.1 BMI Method:Estimated General Appearance: No Apparent Distress, WD/WN, Chronically ill, Thin HEENT: PERRL/EOMI, TMs Normal, Normal ENT Inspection, Pharynx Normal, Moist Mucous Membranes Neck: Full Range of Motion, Normal Inspection, Non Tender Respiratory: Chest Non Tender, No Accessory Muscle Use, No Respiratory Distress , Decreased Breath Sounds, Wheezing Cardiovascular: Regular Rate, Rhythm, No Edema, No Gallop, No JVD, No Murmur, Normal Peripheral Pulses Capillary Refill: Less Than 3 Seconds Gastrointestinal: normal bowel sounds, non tender, soft Extremity: Normal Capillary Refill, Normal Inspection, Normal Range of Motion, Non Tender, No Calf Tenderness, No Pedal Edema Neurologic/Psychiatric: Alert, Oriented x3, No Motor/Sensory Deficits, Normal Mood/Affect Skin: Normal Color, Warm/Dry Lymphatic: No Adenopathy Results Lab Laboratory Tests 12/28/18 15:31 12/29/18 04:20 12/30/18 03:45 Assessment/Plan Assessment/Plan Pneumonia - HCAP - with iatrogenic immunocompromise -Continue zosyn D/C vanco, -Luong cultures pending -MRSA swab neg -Influenza is negative -Check urine strep and legionella Ag - respiratory viral panel - pending -Pt may need bronchoscopy if unable to obtain sputum -CXR -- repeat CXR -BNP is normal and procalcitonin .17 -Start Solumedrol 125 x 1 then 40 Q6 -Increase SVNs to Q 4 Multiple Myoloma -Oncology is following Hypophos, hypokalemia -give 30mmol of K phos Solitary kidney Hx of renal cell carcinoma DM, HTN CARLENE IBARRA DO Dec 30, 2018 07:10
[2018-12-30] MEDS ORDERED: POTASSIUM PHOSPHATE INJ 30 MM in NS (IVPB) 250 ML IV NR (07:15)
[2018-12-30] MEDS: PANTOPRAZOLE 40 MG (PROTONIX) TAB PO SCH (08:50)
[2018-12-30] MEDS: amLODIPine 5 MG (NORVASC) TAB PO SCH (08:50)
[2018-12-30] MEDS: LORATADINE (CLARITIN) 10 MG TAB PO SCH (08:50)
[2018-12-30] MEDS: TAMSULOSIN 0.4 MG (FLOMAX) CAP PO SCH ×2 (08:50→21:10)
[2018-12-30] MEDS: CALCIUM CARBONATE 500 MG (TUMS) TAB.CHEW PO SCH (08:50)
[2018-12-30] MEDS: cloNIDine 0.1 MG (CATAPRES) TAB PO SCH (08:50)
[2018-12-30] MEDS: BENZONATATE 100 MG (TESSALON) CAPSULE PO SCH ×3 (08:54→21:10)
[2018-12-30] MEDS: guaiFENesin (MUCINEX) 600 MG TAB PO SCH ×2 (08:54→21:09)
[2018-12-30] MEDS: ADVAIR HFA 115/21 MCG INHALER 8 GM IH SCH ×2 (09:44→19:24)
--- NOTE | 2018-12-30 10:05 | Physical Therapy Daily Note ---
PT Daily Note-Current Subjective Pt reports he would really like to get up and walk. Agreeable to PT session Pain Comment: Left hand from IV, no pain number given Appearance upon arrival, pt sitting up in recliner with present At end of session, pt sitting up in recliner, call light, phone, bedside table within reach, present Mental Status Patient Orientation: Person, Place, Time, Eyes Open, Situation Attachments: Oxygen, IV Transfers Therapy Code Descriptions/Definitions Functional [place] Measure: 0=Not Assessed/NA 4=Minimal Assistance 1=Total Assistance 5=Supervision or Setup 2=Maximal Assistance 6=Modified [place] 3=Moderate Assistance 7=Complete [place] Therapy Quality Codes: 6 Independent with activity with or without an assistive device 5 Patient requires set up or clean up by helper. Patient completes activity by themselves 4 Supervision or touching assist (CGA). [place] provide cues , steadying assist 3 The helper provides less than half the effort to complete the activity 2 The helper provides more than half the effort to complete the activity 1 Dependent. The helper does all the effort to complete an activity 7 Patient refused to complete or attempt activity 9 The patient did not perform the activity before the current illness or injury 88 Not attempted due to Medical conditions or safety concerns Transfers (B, C, W/C) (FIM): 5 Sit to/from Stand: 5 pt slightly impulsive, requires min instruction for safety, performs transitions with correct hand placement Gait Training Gait (FIM): 1 Distance (FIM): 1=up to 49 ft Distance: 45 Gait Level of Assist: 5 Gait Persons Needed: 1 Gait Assistive Device: FWW pt following instruction to slow down due to having IV pole and O2, steady without LOB, pt with SOA by end of session Exercises Seated Therapy Exercises: Ankle pumps, Sit to stand, Long arc quads, Hip flexion, Hip abd/add Seated Reps: 20 Treatments transfer, gait, safety, functional mobility, activity tolerance, strengthening Assessment slightly impulsive at times PT Short Term Goals Short Term Goals Transfers (B,C,W/C) (FIM): 5 PT Lens Grinding Machine Operator Goals Long-Term Goals PT Lens Grinding Machine Operator Goals Time Frame: Jan 04, 2019 Transfers (B,C,W/C) (FIM): 6 Gait (FIM): 6 Gait distance (FIM): 3=150 ft Gait Level of Assist: 6 PT Plan Treatment/Plan Treatment Plan: Continue Plan of Care Treatment Plan: Bed Mobility, Education, Functional Activity Dileep, Functional Strength, Gait, Safety, Therapeutic Exercise, Transfers Treatment Duration: Jan 04, 2019 Frequency: 6 times per week Estimated Hrs Per Day: .25 hour per day Patient and/or Family Agrees t: Yes Safety Risks/Education Patient Education: Gait Training, Transfer Techniques, Safety Issues Teaching Recipient: Patient, Family Teaching Methods: Demonstration, Discussion Response to Teaching: Verbalize Understanding, Return Demonstration Time/GCodes Time In: 830 Time Out: 841 Total Billed Treatment Time: 11 Total Billed Treatment 1 visit, GT x 1 unit GORGE DE LEON SENIOR SOFTWARE QA ENGINEER Dec 30, 2018 10:05
--- NOTE | 2018-12-30 11:13 | Progress Note-Hospitalist ---
Subjective HPI/CC On Admission Date Seen by Provider: Dec 30, 2018 Time Seen by Provider: 11:00 Chief compliant: SOB HPI: This is an 83yoWM known to me from [facility] admission a couple of weeks ago after being diagnosed with Multiple Myeloma on 11/08/18 required hospitalization a few days after that first chemotherapy treatment and diagnosed with pneumonia with an asthma exacerbation. He was placed on empiric antibiotics broad spectrum of Meropenem and Vancomycin and completed that on swing bed status. He maintained oxygen and Albuterol treatments at that time and was seen by Dr. Gudino, and was placed back on chemotherapy for Multiple Myeloma and he presented with SOB to the ER found to have left hilar infiltrate requiring oxygen and nebulizer treatments, and close monitoring overnight in the ICU, with broad spectrum antibiotics. He has had a rash that seems to be from the Zosyn that he was given and he has been maintained on Vancomycin. Pt has been moved to [facility], Pt appears to be declined since previously assessed at [facility] for the seven days I took care of him and overall family at the bedside. Subjective/Events-last exam patient is feeling much better than when he came in. He is ambulating with physical therapy. Has no new complaints. Review of Systems General: Fatigue Neurological: Weakness Objective Exam Vital Signs Vital Signs Date Time Temp Pulse Resp B/P (MAP) Pulse Ox O2 Delivery O2 Flow Rate FiO2 12/30/18 09:46 Nasal Cannula 0.50 12/30/18 09:46 98 12/30/18 07:41 98.4 81 20 162/74 (103) Capillary Refill : Less Than 3 Seconds General Appearance: No Apparent Distress, WD/WN, Chronically ill, Thin HEENT: PERRL/EOMI, TMs Normal, Normal ENT Inspection, Pharynx Normal, Moist Mucous Membranes Neck: Full Range of Motion, Normal Inspection, Non Tender Respiratory: Chest Non Tender, No Accessory Muscle Use, No Respiratory Distress , Decreased Breath Sounds, Wheezing Cardiovascular: Regular Rate, Rhythm, No Edema, No Gallop, No JVD, No Murmur, Normal Peripheral Pulses Gastrointestinal: Normal Bowel Sounds, No Organomegaly, No Pulsatile Mass, Non Tender, Soft Back: Normal Inspection, No CVA Tenderness, No Vertebral Tenderness Extremity: Normal Capillary Refill, Normal Inspection, Normal Range of Motion, Non Tender, No Calf Tenderness, No Pedal Edema Neurologic/Psychiatric: Alert, Oriented x3, No Motor/Sensory Deficits, Normal Mood/Affect Skin: Normal Color, Warm/Dry Lymphatic: No Adenopathy Results/Procedures Lab Laboratory Tests 12/30/18 03:45 Patient resulted labs reviewed. Assessment/Plan Assessment and Plan Assess & Plan/Chief Complaint 1. Pneumonia-left hilar, improved on chest x-ray on Zosyn and vancomycin 2. Multiple myeloma 3.hypertension blood pressure medicines have been restarted 4. chronic renal insufficiency 5. Acute exacerbation of asthma improved Clinical Quality Measures DVT/VTE Risk/Contraindication: Risk Factor Score Per Nursin RFS Level Per Nursing on Admit: 4+=Very High GILDA REID MD Dec 30, 2018 11:13
[2018-12-30] MEDS: RT-ADVAIR HFA 115/21 MCG PER PUFF IH SCH ×2 (19:18→19:24)
[2018-12-30] MEDS: MONTELUKAST 10 MG (SINGULAIR) TAB PO SCH (21:09)
[2018-12-30] MEDS: FAMOTIDINE 20 MG (PEPCID) TABLET PO SCH (21:09)
[2018-12-30] MEDS: AMITRIPTYLINE 25 MG (ELAVIL) TAB PO SCH (21:09)
[2018-12-30] MEDS: ZOLPIDEM 5 MG (AMBIEN) TAB PO SCH ×2 (21:10)
[2018-12-31 00:43] VITALS: BP 126/67
[2018-12-31] MEDS: RT-ALBUTEROL/IPRATROPIUM 3 ML (DUONEB) VIAL INH SCH ×6 (02:57→22:05)
[2018-12-31] MEDS: PIPERACILLIN/TAZO 4.5 GM/NS 100 ML IV SCH ×6 (02:59→19:35)
[2018-12-31 04:18] LABS: BASOPHILS % (AUTO) 0 % (0-10); EOSINOPHILS % (AUTO) 0 % (0-10); HEMATOCRIT 27 % (40-54); HEMOGLOBIN 8.6 G/DL (13.3-17.7); LYMPHOCYTES # (AUTO) 1.1 X 10^3 (1.0-4.0); LYMPHOCYTES % (AUTO) 15 % (12-44); MEAN CORPUSCULAR HEMOGLOBIN 31 PG (25-34); MEAN CORPUSCULAR HGB CONC 32 G/DL (32-36); MEAN CORPUSCULAR VOLUME 96 FL (80-99); MEAN PLATELET VOLUME 10.1 FL (7.4-10.4); MONOCYTES # (AUTO) 0.5 X 10^3 (0.0-1.0); MONOCYTES % (AUTO) 7 % (0-12); NEUTROPHILS # (AUTO) 5.7 X 10^3 (1.8-7.8); NEUTROPHILS % (AUTO) 78 % (42-75); PLATELET COUNT 172 10^3/uL (130-400); RED CELL DISTRIBUTION WIDTH 14.8 % (10.0-14.5); WHITE BLOOD COUNT 7.4 10^3/uL (4.3-11.0)
[2018-12-31 04:36] LABS: BUN/CREATININE RATIO 19; CALCIUM 6.2 MG/DL (8.5-10.1); CARBON DIOXIDE 19 MMOL/L (21-32); CHLORIDE 111 MMOL/L (98-107); CREATININE SERUM 0.95 MG/DL (0.60-1.30); GFR ESTIMATED > 60; GLUCOSE 180 MG/DL (70-105); MAGNESIUM 2.2 MG/DL (1.8-2.4); PHOSPHORUS 2.8 MG/DL (2.3-4.7); POTASSIUM 3.6 MMOL/L (3.6-5.0); SODIUM 140 MMOL/L (135-145)
[2018-12-31] MEDS: inSUlin ASPART (NovoLOG) 1 UNIT/0.01 ML (CHARGE PER UNIT) SC SCH ×4 (05:18→21:18)
[2018-12-31] MEDS: ADVAIR HFA 115/21 MCG INHALER 8 GM IH SCH ×2 (06:22→19:08)
[2018-12-31] MEDS: metFORMIN 500 MG (GLUCOPHAGE) TAB PO SCH ×2 (06:24→17:30)
[2018-12-31] MEDS: ENOXAPARIN 40 MG/0.4 ML (LOVENOX) SYR SC SCH (06:24)
[2018-12-31] MEDS: methylPREDNISolone 40 MG/ML (Solu-MEDROL) VIAL IV SCH ×4 (06:24→23:01)
--- NOTE | 2018-12-31 07:01 | Pulmonary Progress Note ---
Subjective Time Seen by a Provider: 07:01 Sepsis Event Evaluation Height, Weight, BMI Height: 5'" Weight: 151lbs. 6.0oz. 68.722701lq; 21.1 BMI Method:Estimated Exam Exam Vital Signs Date Time Temp Pulse Resp B/P (MAP) Pulse Ox O2 Delivery O2 Flow Rate FiO2 12/31/18 06:22 98 Nasal Cannula 0.50 12/31/18 02:57 96 Nasal Cannula 0.50 12/31/18 00:43 98.7 79 18 126/67 (86) 95 Nasal Cannula 0.50 12/30/18 21:53 95 Nasal Cannula 0.50 12/30/18 21:23 98.2 90 18 132/58 (82) 94 Nasal Cannula 0.50 12/30/18 20:00 Nasal Cannula 0.50 12/30/18 20:00 98.2 90 18 132/58 (82) 94 Nasal Cannula 0.50 12/30/18 19:22 96 Nasal Cannula 0.50 12/30/18 15:38 97.9 93 18 125/60 (81) 94 Nasal Cannula 0.50 12/30/18 14:14 96 Nasal Cannula 0.50 12/30/18 11:50 98.0 87 18 136/60 (85) 97 Nasal Cannula 0.50 12/30/18 09:46 Nasal Cannula 0.50 12/30/18 09:46 98 Nasal Cannula 0.50 12/30/18 08:00 Nasal Cannula 0.50 12/30/18 07:41 98.4 81 20 162/74 (103) 95 Nasal Cannula 0.50 I & O 12/31/18 07:00 Intake Total 1170 ml Output Total 1250 ml Balance -80 ml Height & Weight Height: 5'" Weight: 151lbs. 6.0oz. 68.648713wl; 21.1 BMI Method:Estimated General Appearance: No Apparent Distress, WD/WN, Chronically ill, Thin HEENT: PERRL/EOMI, TMs Normal, Normal ENT Inspection, Pharynx Normal, Moist Mucous Membranes Neck: Full Range of Motion, Normal Inspection, Non Tender Respiratory: Chest Non Tender, No Accessory Muscle Use, No Respiratory Distress , Decreased Breath Sounds, Wheezing Cardiovascular: Regular Rate, Rhythm, No Edema, No Gallop, No JVD, No Murmur, Normal Peripheral Pulses Capillary Refill: Less Than 3 Seconds Gastrointestinal: normal bowel sounds, non tender, soft Extremity: Normal Capillary Refill, Normal Inspection, Normal Range of Motion, Non Tender, No Calf Tenderness, No Pedal Edema Neurologic/Psychiatric: Alert, Oriented x3, No Motor/Sensory Deficits, Normal Mood/Affect Skin: Normal Color, Warm/Dry Lymphatic: No Adenopathy Results Lab Laboratory Tests 12/30/18 03:45 12/31/18 04:05 Assessment/Plan Assessment/Plan Pneumonia - HCAP - with iatrogenic immunocompromise -Repeat CXR -Continue zosyn D/C vanco, -Luong cultures pending -MRSA swab neg -Influenza is negative -Check urine strep and legionella Ag - respiratory viral panel - pending -Pt may need bronchoscopy if unable to obtain sputum -CXR -- repeat CXR -BNP is normal and procalcitonin .17 -Start Solumedrol 125 x 1 then 40 Q6 -Increase SVNs to Q 4 Multiple Myoloma -Oncology is following hypokalemia -K dur 40 X 1 Solitary kidney Hx of renal cell carcinoma DM, HTN CARLENE IBARRA DO Dec 31, 2018 07:01
[2018-12-31 08:14] VITALS: BP 137/63
[2018-12-31] MEDS: LORATADINE (CLARITIN) 10 MG TAB PO SCH (08:46)
[2018-12-31] MEDS: BENZONATATE 100 MG (TESSALON) CAPSULE PO SCH ×3 (08:46→21:18)
[2018-12-31] MEDS: guaiFENesin (MUCINEX) 600 MG TAB PO SCH ×2 (08:46→21:18)
[2018-12-31] MEDS: PANTOPRAZOLE 40 MG (PROTONIX) TAB PO SCH (08:46)
[2018-12-31] MEDS: cloNIDine 0.1 MG (CATAPRES) TAB PO SCH (08:46)
[2018-12-31] MEDS: TAMSULOSIN 0.4 MG (FLOMAX) CAP PO SCH ×2 (08:46→21:18)
[2018-12-31] MEDS: amLODIPine 5 MG (NORVASC) TAB PO SCH (08:46)
[2018-12-31] MEDS: CALCIUM CARBONATE 500 MG (TUMS) TAB.CHEW PO SCH (08:46)
--- NOTE | 2018-12-31 08:52 | Diagnostic Imaging Report ---
INDICATION: Pneumonia. Comparison is made with prior examination from 12/29/18. FINDINGS: There is cardiomegaly. There is some venous congestion. There is no pleural effusion or pneumothorax. The mediastinum is unremarkable. IMPRESSION: Cardiomegaly and mild central pulmonary venous congestion. Dictated by: Dictated on workstation # [id number]
[2018-12-31] MEDS ORDERED: KCL 20 MEQ TAB (K-DUR) PO NR (09:00)
--- NOTE | 2018-12-31 12:34 | Progress Note-Hospitalist ---
Subjective HPI/CC On Admission Date Seen by Provider: Dec 31, 2018 Time Seen by Provider: 12:00 Chief compliant: SOB HPI: This is an 83yoWM known to me from [facility] admission a couple of weeks ago after being diagnosed with Multiple Myeloma on 11/08/18 required hospitalization a few days after that first chemotherapy treatment and diagnosed with pneumonia with an asthma exacerbation. He was placed on empiric antibiotics broad spectrum of Meropenem and Vancomycin and completed that on swing bed status. He maintained oxygen and Albuterol treatments at that time and was seen by Dr. Gudino, and was placed back on chemotherapy for Multiple Myeloma and he presented with SOB to the ER found to have left hilar infiltrate requiring oxygen and nebulizer treatments, and close monitoring overnight in the ICU, with broad spectrum antibiotics. He has had a rash that seems to be from the Zosyn that he was given and he has been maintained on Vancomycin. Pt has been moved to [facility], Pt appears to be declined since previously assessed at [facility] for the seven days I took care of him and overall family at the bedside. Subjective/Events-last exam Patient is sitting up eating his Easter lunch, does not appear to be short of breath or ill at all. Family wishes occupational therapy to see him tomorrow regarding his tremor and possible utensils that might help him eat better Review of Systems Neurological: Weakness Objective Exam Vital Signs Vital Signs Date Time Temp Pulse Resp B/P (MAP) Pulse Ox O2 Delivery O2 Flow Rate FiO2 12/31/18 09:42 97 Room Air 12/31/18 08:14 98.3 73 20 137/63 (87) 12/31/18 06:22 0.50 Capillary Refill : Less Than 3 SecondsLess Than 3 Seconds General Appearance: No Apparent Distress, WD/WN, Chronically ill, Thin HEENT: PERRL/EOMI, TMs Normal, Normal ENT Inspection, Pharynx Normal, Moist Mucous Membranes Neck: Full Range of Motion, Normal Inspection, Non Tender Respiratory: Chest Non Tender, No Accessory Muscle Use, No Respiratory Distress , Decreased Breath Sounds, Wheezing Cardiovascular: Regular Rate, Rhythm, No Edema, No Gallop, No JVD, No Murmur, Normal Peripheral Pulses Gastrointestinal: Normal Bowel Sounds, No Organomegaly, No Pulsatile Mass, Non Tender, Soft Back: Normal Inspection, No CVA Tenderness, No Vertebral Tenderness Extremity: Normal Capillary Refill, Normal Inspection, Normal Range of Motion, Non Tender, No Calf Tenderness, No Pedal Edema Neurologic/Psychiatric: Alert, Oriented x3, No Motor/Sensory Deficits, Normal Mood/Affect Skin: Normal Color, Warm/Dry Lymphatic: No Adenopathy Results/Procedures Lab Laboratory Tests 12/31/18 04:05 Patient resulted labs reviewed. Assessment/Plan Assessment and Plan Assess & Plan/Chief Complaint 1. Pneumonia-left hilar, cleared on chest x-ray on; Zosyn and vancomycin 2. Multiple myeloma 3.hypertension blood pressure medicines have been restarted 4. chronic renal insufficiency 5. Acute exacerbation of asthma improved 6. Evidence of pulmonary venous congestion on chest x-ray will check a BNP consideration should be given to getting an echocardiogram. Clinical Quality Measures DVT/VTE Risk/Contraindication: Risk Factor Score Per Nursin RFS Level Per Nursing on Admit: 4+=Very High GILDA REID MD Dec 31, 2018 12:34
[2018-12-31 16:21] VITALS: BP 150/66
[2018-12-31] MEDS: ZOLPIDEM 5 MG (AMBIEN) TAB PO SCH ×2 (21:18→23:00)
[2018-12-31] MEDS: MONTELUKAST 10 MG (SINGULAIR) TAB PO SCH (21:18)
[2018-12-31] MEDS: FAMOTIDINE 20 MG (PEPCID) TABLET PO SCH (21:18)
[2018-12-31] MEDS: AMITRIPTYLINE 25 MG (ELAVIL) TAB PO SCH (23:00)
[2019-01-01 00:04] VITALS: BP 150/67
[2019-01-01] MEDS: RT-ALBUTEROL/IPRATROPIUM 3 ML (DUONEB) VIAL INH SCH ×3 (02:09→10:31)
[2019-01-01] MEDS: PIPERACILLIN/TAZO 4.5 GM/NS 100 ML IV SCH ×4 (02:59→11:04)
[2019-01-01 04:35] LABS: BASOPHILS % (AUTO) 0 % (0-10); EOSINOPHILS % (AUTO) 0 % (0-10); HEMATOCRIT 27 % (40-54); HEMOGLOBIN 8.8 G/DL (13.3-17.7); LYMPHOCYTES % (AUTO) 13 % (12-44); MEAN CORPUSCULAR HEMOGLOBIN 31 PG (25-34); MEAN CORPUSCULAR HGB CONC 32 G/DL (32-36); MEAN CORPUSCULAR VOLUME 96 FL (80-99); MEAN PLATELET VOLUME 10.5 FL (7.4-10.4); MONOCYTES # (AUTO) 0.6 X 10^3 (0.0-1.0); MONOCYTES % (AUTO) 8 % (0-12); NEUTROPHILS # (AUTO) 6.1 X 10^3 (1.8-7.8); NEUTROPHILS % (AUTO) 79 % (42-75); PLATELET COUNT 194 10^3/uL (130-400); RED CELL DISTRIBUTION WIDTH 14.9 % (10.0-14.5); WHITE BLOOD COUNT 7.7 10^3/uL (4.3-11.0)
[2019-01-01 04:58] LABS: BUN/CREATININE RATIO 20; CALCIUM 6.2 MG/DL (8.5-10.1); CARBON DIOXIDE 17 MMOL/L (21-32); CHLORIDE 111 MMOL/L (98-107); CREATININE SERUM 0.96 MG/DL (0.60-1.30); GFR ESTIMATED > 60; GLUCOSE 255 MG/DL (70-105); MAGNESIUM 2.2 MG/DL (1.8-2.4); PHOSPHORUS 2.5 MG/DL (2.3-4.7); SODIUM 141 MMOL/L (135-145)
[2019-01-01] MEDS: metFORMIN 500 MG (GLUCOPHAGE) TAB PO SCH (05:06)
--- NOTE | 2019-01-01 05:07 | NUR ---
Critical lacitc of 3.[address] Wade notified at 0505 and this RN received orders to give a one liter bolus of fluids over 2 hours and to start IV fluids at 150ml/hr afterwards. Order read back and confirmed.
[2019-01-01] MEDS ORDERED: LACTATED RINGERS 1,000 ML IV SCH ×2 (05:15)
[2019-01-01] MEDS: methylPREDNISolone 40 MG/ML (Solu-MEDROL) VIAL IV SCH ×2 (05:22→12:00)
[2019-01-01] MEDS: ENOXAPARIN 40 MG/0.4 ML (LOVENOX) SYR SC SCH (05:22)
[2019-01-01] MEDS: inSUlin ASPART (NovoLOG) 1 UNIT/0.01 ML (CHARGE PER UNIT) SC SCH ×2 (05:37→11:04)
[2019-01-01] MEDS: ADVAIR HFA 115/21 MCG INHALER 8 GM IH SCH (07:32)
[2019-01-01 07:33] VITALS: BP 145/66
[2019-01-01] MEDS: BENZONATATE 100 MG (TESSALON) CAPSULE PO SCH ×2 (07:56→14:25)
[2019-01-01] MEDS: cloNIDine 0.1 MG (CATAPRES) TAB PO SCH (07:56)
[2019-01-01] MEDS: guaiFENesin (MUCINEX) 600 MG TAB PO SCH (07:56)
[2019-01-01] MEDS: CALCIUM CARBONATE 500 MG (TUMS) TAB.CHEW PO SCH (07:56)
[2019-01-01] MEDS: PANTOPRAZOLE 40 MG (PROTONIX) TAB PO SCH (07:56)
[2019-01-01] MEDS: amLODIPine 5 MG (NORVASC) TAB PO SCH (07:56)
[2019-01-01] MEDS: LORATADINE (CLARITIN) 10 MG TAB PO SCH (07:57)
[2019-01-01] MEDS: TAMSULOSIN 0.4 MG (FLOMAX) CAP PO SCH (07:57)
--- NOTE | 2019-01-01 10:21 | Physical Therapy Daily Note ---
PT Daily Note-Current Subjective Pt reports he is looking forward to getting up and walking this morning. Agreeable to PT session. States not 2-3 months ago he was using chain saws and doing all sorts of physical activity and can't believe how weak he is feeling now. Pain Numeric Pain Scale: 0-No Pain Appearance Upon arrival, pt in awake and alert in bed with family at bedside At end of session, pt sitting up in straight backed chair per pt request, family still present, call light, phone and bedside table within reach Mental Status Patient Orientation: Person, Place, Time, Eyes Open, Situation Attachments: IV Transfers Therapy Code Descriptions/Definitions Functional [place] Measure: 0=Not Assessed/NA 4=Minimal Assistance 1=Total Assistance 5=Supervision or Setup 2=Maximal Assistance 6=Modified [place] 3=Moderate Assistance 7=Complete [place] Therapy Quality Codes: 6 Independent with activity with or without an assistive device 5 Patient requires set up or clean up by helper. Patient completes activity by themselves 4 Supervision or touching assist (CGA). [place] provide cues , steadying assist 3 The helper provides less than half the effort to complete the activity 2 The helper provides more than half the effort to complete the activity 1 Dependent. The helper does all the effort to complete an activity 7 Patient refused to complete or attempt activity 9 The patient did not perform the activity before the current illness or injury 88 Not attempted due to Medical conditions or safety concerns Transfers (B, C, W/C) (FIM): 5 Scootin Rollin Supine to/from Sit: 6 Sit to/from Stand: 5 shakiness and tremors cause concern for safety and balance. No physical assist required with transfers, SBA provided for safety Gait Training Gait (FIM): 5 Distance (FIM): 3=150 ft Distance: 200' Gait Level of Assist: 5 Gait Persons Needed: 1 Gait Assistive Device: FWW SBA provided during gait distance for safety due to shakiness and tremors. Good pace, decreased step height. Tremors increase at times causing entire walker to shake. No LOB, No physical assist required Exercises Pt performed SLS each LE, attempting x 30 sec each LE with light LUE DIRECTOR TELECOMMUNICATIONS, unable to maintain entire 30 seconds Treatments transfer, safety, gait, balance, functional mobility, activity tolerance Assessment increased distance during gait, increased tremors. PT Short Term Goals Short Term Goals Transfers (B,C,W/C) (FIM): 5 PT Nursing Home Goals Nursing Home Goals PT Wildlife Ecologist Goals Time Frame: Jan 04, 2019 Transfers (B,C,W/C) (FIM): 6 Gait (FIM): 6 Gait distance (FIM): 3=150 ft Gait Level of Assist: 6 PT Plan Treatment/Plan Treatment Plan: Continue Plan of Care Treatment Plan: Bed Mobility, Education, Functional Activity Dileep, Functional Strength, Gait, Safety, Therapeutic Exercise, Transfers Treatment Duration: Jan 04, 2019 Frequency: 6 times per week Estimated Hrs Per Day: .25 hour per day Patient and/or Family Agrees t: Yes Safety Risks/Education Patient Education: Gait Training, Transfer Techniques, Safety Issues Teaching Recipient: Patient Teaching Methods: Demonstration, Discussion Response to Teaching: Verbalize Understanding, Return Demonstration Time/GCodes Time In: 958 Time Out: 1021 Total Billed Treatment Time: 23 Total Billed Treatment 1 visit, GT x 1 unit, FA x 1 unit GORGE DE LEON PTA Jan 01, 2019 10:20
--- NOTE | 2019-01-01 13:46 | Occupational Ther Daily Note ---
OT Current Status-Daily Note Subjective pt agreed to OT TX session with focus on increase independence with ADLs. pt stated he is having increased trouble feeding secondary to increase tremors in Curry hands Pain Numeric Pain Scale: 0-No Pain Appearance post OT Session pt laying in bed. present in room, callight, ohone, and tray within reach. all needs met. Mental Status/Objective Therapy Code Descriptions/Definitions Functional [place] Measure: 0=Not Assessed/NA 4=Minimal Assistance 1=Total Assistance 5=Supervision or Setup 2=Maximal Assistance 6=Modified [place] 3=Moderate Assistance 7=Complete [place] Attachments: IV ADL-Treatment Eating (FIM): 5 (pt education on built up weighted handle. pt verbziled and demo undesttanding using handle. pt stated "wow, my tremors are not as bad with this." handout provided to pt and of handle) Grooming (FIM): 6 Lower Body Dressing (FIM): 6 (pt demo ability to doff/ goldy curry socks sitting EOB ) Transfers (B, C, W/C) (FIM): 5 Education OT Patient Education: Energy conservation, Modified ADL techniques, Progress toward Goal/Update tx plan, Purpose of tx/functional activities, Transfer techniques, Use of adapted equipment Teaching Recipient: Patient, Family Teaching Methods: Demonstration, Discussion Response to Teaching: Verbalize Understanding, Return Demonstration OT Short Term Goals Short Term Goals Grooming(FIM): 5 Bathing(FIM): 5 Lower Body Dressing(FIM): 5 Toileting(FIM): 5 Transfers (B,C,W/C) (FIM): 5 Toilet/Commode Transfer(FIM): 5 1=Demonstrate adherence to instructed precautions during ADL tasks. 2=Patient will verbalize/demonstrate understanding of assistive devices/ modifications for ADL. 3=Patient will improve strength/tolerance for activity to enable patient to perform ADL's. OT Summer Sessions Director Goals [facility] Goals Grooming(FIM): 6 Bathing(FIM): 6 Lower Body Dressing(FIM): 6 Toileting(FIM): 6 Transfers (B,C,W/C) (FIM): 6 Toilet/Commode Transfer(FIM): 6 1=Demonstrate adherence to instructed precautions during ADL tasks. 2=Patient will verbalize/demonstrate understanding of assistive devices/ modifications for ADL. 3=Patient will improve strength/tolerance for activity to enable patient to perform ADL's. OT Education/Plan Problem List/Assessment Assessment: Decreased Activ Tolerance, Impaired Coordination, Impaired Funct Balance, Impaired I ADL's, Impaired Self-Care Skills pt presents with functional limitations affecting areas of ADL and functional transfers. pt would benefit from OT services to increase independence with ADLs and functional transfers and for safe transition to home Discharge Recommendations Plan/Recommendations: Continue POC Therapy D/C Recommendations: Home w/ Family Support Equpiment Recommendations-D/C: Other, See Comments (weighted build up handles for eating) Patient/Family Goals "to go home" Treatment Plan/Plan of Care Treatment,Training & Education: Yes Patient would benefit from OT for education, treatment and training to promote independence in ADL's, mobility, safety and/or upper extremity function for ADL' s. Plan of Care: ADL Retraining, Functional Mobility, Group Exercise/Act as Ind, UE Funct Exercise/Act Treatment Duration: Jan 05, 2019 Frequency: 5 times per week Estimated Hrs Per Day: .25 hour per day Rehab Potential: Good Time/GCodes Start Time: 13:00 Stop Time: 13:15 Billed Treatment Time ADL 15 minutes, 1 unit AFIA BERGER OT Jan 01, 2019 13:46
--- NOTE | 2019-01-01 14:51 | Progress Note-Hospitalist ---
Progress Note Progress Notes/Assess & Plan Date Seen 01/01/19 Time Seen by Provider: 14:42 Assessment & Plan The patient is an 83-year-old white male with multiple myeloma. This was apparently diagnosed about October of this year. He had an admission following his first course of chemotherapy. This was interrupted and has more recently been restarted. He reports that he is feeling much better than on admission. Vital signs are stable. SaO2 is satisfactory. Physical exam: He is alert and oriented. Lungs show distant breath sounds but are clear. CV is regular. Impression: 1.multiple myeloma diagnosed October 2018. 2.history renal cell carcinoma post nephrectomy. Plan: Discharge. SEE discharge sequence for medications and routines. Focused Exam Lactate Level 01/01/19 04:20: Lactic Acid Level 3.05*H 01/01/19 06:24: Lactic Acid Level 3.23*H DALILA MOSELEY MD Jan 01, 2019 14:51
--- NOTE | 2019-01-01 15:04 | Discharge Inst-Simple/Standard ---
Discharge Inst-Standard Patient Instructions/Follow Up Plan of Care/Instructions/FU: Resume medications as on the discharge sequence. Call the cancer center tomorrow to confirm your appointment for next week. Activity as Tolerated: Yes Goal: Resume previous activities. Return to Hospital if significant change in performance. Discharge Diet: DALILA Patricio MD Jan 01, 2019 15:04
--- NOTE | 2019-01-01 15:54 | NUR ---
Met with pt and to discuss continued care plans. Pt plans to return home with the continued care of his who is a retired RN and feels comfortable with his care. Pt has a front wheel walker at home which he states he will begin using for safety reasons. Ilia jeffrey be followed by the Cancer Center.No other needs identified by pt or his who will be his primary caregiver.
--- NOTE | 2019-01-01 16:03 | NUR ---
CHETAN WHITE demonstrates understanding of discharge instructions and accurately returns instructions upon questioning. Copy of Post-Discharge Instructions and Medication Discharge Instructions given to patient and . CHETAN WHITE is able to manage continuing needs after discharge. Patients belongings returned to patient and . Skin dry and intact; no breakdown noted. Patient [facility] from [facility] on 01/01/19 at 1603. CHETAN WHITE left floor via wheelchair, accompanied by staff.
[2019-01-01 16:45] VITALS: BP 145/66
== END 2019-01-01 16:03 | disposition home or self-care (01) | DRG 871 ==
LOC: EDUNIT# 18:17 → ER 18:18 → ICU 19:55 → 4TH 12-27 09:39
PROVIDERS: ADMIT Internal Medicine; ATTEND Internal Medicine
DX: A41.9 Sepsis, unspecified organism (principal); J18.1 Lobar pneumonia, unspecified organism; J44.0 Chronic obstructive pulmonary disease with (acute) lower respiratory infection; J45.901 Unspecified asthma with (acute) exacerbation; C90.00 Multiple myeloma not having achieved remission; R09.02 Hypoxemia; Z66 Do not resuscitate; E87.6 Hypokalemia; E83.39 Other disorders of phosphorus metabolism; I12.9 Hypertensive chronic kidney disease with stage 1 through stage 4 chronic kidney disease, or unspecified chronic kidney disease; E11.22 Type 2 diabetes mellitus with diabetic chronic kidney disease; N18.9 Chronic kidney disease, unspecified; N40.1 Benign prostatic hyperplasia with lower urinary tract symptoms; R33.8 Other retention of urine; K21.9 Gastro-esophageal reflux disease without esophagitis; E78.00 Pure hypercholesterolemia, unspecified; L27.0 Generalized skin eruption due to drugs and medicaments taken internally; T36.0X5A Adverse effect of penicillins, initial encounter; T45.1X5A Adverse effect of antineoplastic and immunosuppressive drugs, initial encounter; M41.9 Scoliosis, unspecified; M47.9 Spondylosis, unspecified; R25.1 Tremor, unspecified; Z85.528 Personal history of other malignant neoplasm of kidney; Z92.21 Personal history of antineoplastic chemotherapy; Z90.5 Acquired absence of kidney; Z98.1 Arthrodesis status; Z87.891 Personal history of nicotine dependence; Z79.84 Long term (current) use of oral hypoglycemic drugs; Z97.4 Presence of external hearing-aid
CPT/HCPCS: 36415; 36600; 71045; 80048; 80053; 80202; 81000; 82805; 82962; 83605; 83735; 83880; 84100; 84145; 85007; 85025; 85027; 85610; 85730; 87040; 87077; 87081; 87088; 87186; 87449; 87804; 87899; 93005; 94640; 94760; 96374; 96375